=== PATIENT | female | born 1945 | race Caucasian/White ===

== ENCOUNTER 2017-01-07 17:15 | Observation (INO) | payer MEDICARE, BC ==
[2017-01-07] MEDS ORDERED: Nitroglycerin 0.4 MG Tab.SL SL ONE (17:31)
[2017-01-07] MEDS ORDERED: Nitroglycerin 0.4 MG Tab.SL ONE (17:37)
[2017-01-07] MEDS ORDERED: Sodium Chloride 0.9% 5 ML Syringe FLUSH PRN (17:47)
[2017-01-07] MEDS ORDERED: Ondansetron 4 MG/2 ML SDV IVPUSH ONE (18:00)
[2017-01-07] MEDS ORDERED: Ondansetron 4 MG/2 ML SDV ONE (18:05)
[2017-01-07 18:11] LABS: CHLORIDE,CL 101 mmol/L (98-115); SODIUM,NA 140 mmol/L (136-145)
--- NOTE | 2017-01-07 18:22 | EDM.PDOC ---
Addendum entered and electronically signed by Mj Mccullough PA 01/07/17 18:42 : ER H&P CAN BE USED ADMISSION H&P Original Note: ED HISTORY OF PRESENT ILLNESS - General Chief Complaint: Chest Pain Stated Complaint: CHEST PAIN Time Seen by Provider: 01/07/17 17:50 Source of Information: Reports: Patient History Limitations: Reports: No limitations - History of Present Illness INITIAL COMMENTS - FREE TEXT/NARRATIVE: PT STATES AT 1615 TODAY WHILE SHE WAS GARDENING, SHE DEVELOPED A SHARP PAIN IN LEFT CHEST, NAUSEA, AND RADIATION TO RIGHT JAW. PAIN THEN CHANGED TO PRESSURE AND SHE TOOK 2 BABY ASPIRIN AND LAID ON COUCH. PAIN PERSISTED SO SHE CAME TO ER DRIVEN BY . DENIES TRAUMA, SOB, FEVER, URI, ABD PAIN, LEG SWELLING, OR H/ O SIMILAR SYMPTOMS IN PAST Symptom Onset Date: 01/07/17 Symptom Onset Time: 16:15 Timing/Duration: Reports: Hour(s): Severity: mild Location, General: Reports: chest Quality: Reports: Pressure, Sharp Improves with: Reports: Medication, Other (RESOLVED AFTER NITRO) Worsens with: Reports: None Context, General: Reports: Activity Associated Symptoms (General): Reports: nausea/vomiting - Related Data Allergies/ADRs: Allergies Allergy/AdvReac Type Severity Reaction Status Date / Time Tetanus Vaccines and Toxoid Allergy Anaphylactic Verified 01/07/17 17:44 [Tetanus Vaccines & Toxoid] Shock Home Meds: Home Meds metFORMIN [Glucophage XR] 1,000 mg PO BID 01/16/14 [History] Gabapentin [Gabapentin] 900 mg PO TID 01/30/16 [History] SitaGLIPtin [Januvia] 100 mg PO BEDTIME 04/26/16 [History] atorvaSTATin [Lipitor] 10 mg PO BEDTIME 01/07/17 [History] oxyCODONE HCl/Acetaminophen [oxyCODONE-Acetaminophen 5-325] 1 - 2 tab PO Q6H PRN 01/07/17 [History] Past Medical History - Past Health History Medical/Surgical History: Denies Medical/Surgical History Cardiovascular History: Reports: Hypertension Endocrine/Metabolic History: Reports: Diabetes, type II - Past Surgical History Female Surgical History: Reports: Hysterectomy Social & Family History - Tobacco Use Smoking Status *Q: Current Every Day Smoker Years of Tobacco use: 55 Packs/Tins Daily: 1 Used Tobacco, but Quit: No Second Hand Smoke Exposure: Yes - Alcohol Use Days Per Week of Alcohol Use: 0 - Recreational Drug Use Recreational Drug Use: No Drug Use in Last 12 Months: Yes Recreational Drug Type: Reports: Marijuana/Hashish - Living Situation & Occupation Living situation: Reports: ED ROS GENERAL - Review of Systems Review Of Systems: ROS reveals no pertinent complaints other than HPI. Constitutional: Reports: no symptoms HEENT: Reports: No symptoms Respiratory: Reports: No Symptoms Cardiovascular: Reports: Chest pain Endocrine: Reports: no symptoms GI/Abdominal: Reports: No symptoms : Reports: no symptoms Musculoskeletal: Reports: no symptoms Skin: Reports: no symptoms Neurological: Reports: No Symptoms Psychiatric: Reports: No symptoms Hematologic/Lymphatic: Reports: no symptoms Immunologic: Reports: no symptoms ED EXAM, GENERAL - Physical Exam Exam: See Below Exam Limited By: No limitations General Appearance: alert, WD/WN, no apparent distress Eye Exam: bilateral eye: normal inspection Nose: normal inspection, normal mucosa, no blood Throat/Mouth: Normal inspection, Normal oropharynx, No airway compromise Head: atraumatic, normocephalic Neck: normal inspection, supple, non-tender, full range of motion Respiratory/Chest: no respiratory distress, lungs clear, normal breath sounds, no accessory muscle use Cardiovascular: regular rate, rhythm, no murmur, no rub GI/Abdominal: normal bowel sounds, soft, non tender, no organomegaly, no distention, no abnormal bruit, no mass Back Exam: normal inspection Extremities: normal inspection, non-tender, no pedal edema Neurological: alert, oriented, normal cognition Psychiatric: normal affect, normal mood Skin Exam: Warm, Dry, Intact, Normal color, No rash Lymphatic: no adenopathy EKG INTERPRETATION EKG Date: 01/07/17 Time: 17:30 Rhythm: NSR Rate (beats/min): 89 [place]: normal P-wave: present QRS: normal ST-T: normal QT: normal Comparison: NA - no prior EKG Course - Vital Signs Last Recorded V/S: Last Vital Signs Temp 97.6 F 01/07/17 17:58 Pulse 93 01/07/17 17:58 Resp 20 01/07/17 17:58 BP 124/51 L 01/07/17 17:58 Pulse Ox 95 01/07/17 17:58 - Orders/Labs/Meds Orders: Active Orders 24 hr Category Date Time Status EKG Documentation Completion [RC] ASDIRECTED Care 01/07/17 17:47 Active Peripheral IV Care [RC] . DIRECTED Care 01/07/17 17:47 Active Chest 1V Frontal [CR] Stat Exams 01/07/17 17:46 Taken Sodium Chloride 0.9% [Syrex Flush] Med 01/07/17 17:47 Active 5 ml FLUSH Q8HR PRN Peripheral IV Insertion Adult [OM.PC] Routine Oth 01/07/17 17:47 Ordered EKG 12 Lead [EK] Routine Ther 01/07/17 17:47 Ordered Medication Orders Sodium Chloride (Syrex Flush) 5 ml FLUSH Q8HR PRN PRN Reason: Keep Vein Open Labs: Laboratory Tests 01/07/17 01/07/17 Range/Units 17:30 17:30 WBC 12.8 H (5.0-10.0) 10^3/uL RBC 4.95 (3.80-5.50) 10^6/uL Hgb 15.9 (12.0-16.0) g/dL Hct 46.5 (37.0-47.0) % MCV 94.0 H (82.0-92.0) fL MCH 32.1 H (27.0-31.0) pg MCHC 34.1 (32.0-36.0) g/dL RDW 12.6 (11.5-14.5) % Plt Count 299 (150-300) 10^3/uL MPV 7.6 (7.4-10.4) fL Neut % (Auto) 62.9 (50.0-70.0) % Lymph % (Auto) 29.6 (20.0-40.0) % [place] % (Auto) 4.2 (2.0-8.0) % Eos % (Auto) 2.9 (1.0-3.0) % Baso % (Auto) 0.4 (0.0-1.0) % Neut # (Auto) 8.0 H (2.5-7.0) 10^3/uL Lymph # (Auto) 3.8 (1.0-4.0) 10^3/uL [place] # (Auto) 0.5 (0.1-0.8) 10^3/uL Eos # (Auto) 0.4 H (0.1-0.3) 10^3/uL Baso # (Auto) 0.1 (0.0-0.1) 10^3/uL Sodium 140 (136-145) mmol/L Potassium 3.7 (3.3-5.3) mmol/L Chloride 101 (98-115) mmol/L Carbon Dioxide 27.6 (21.0-32.0) mmol/L BUN 19 (6-25) mg/dL Creatinine 0.80 (0.51-1.17) mg/dL Est Cr Clr Drug Dosing TNP Estimated GFR (MDRD) > 60 mL/min Glucose 160 H (70-110) mg/dL Calcium 9.1 (8.7-10.3) mg/dL Total Bilirubin 0.6 (0.2-1.0) mg/dL AST 61 H (15-37) U/L ALT 41 (12-78) U/L Alkaline Phosphatase 119 H (46-116) IU/L CK-MB (CK-2) 0.90 (0.00-4.30) ng/mL Troponin I < 0.04 (0.00-0.070) ng/mL Total Protein 7.4 (6.4-8.2) g/dL Albumin 3.74 (3.00-4.80) g/dL Lipase 99 (73-393) U/L Meds: Medications Generic Name Dose Route Start Last Admin Trade Name Freq PRN Reason Stop Dose Admin Sodium Chloride 5 ml 01/07/17 17:47 Syrex Flush FLUSH Q8HR PRN Keep Vein Open Discontinued Medications Generic Name Dose Route Start Last Admin Trade Name Freq PRN Reason Stop Dose Admin Nitroglycerin Confirm 01/07/17 17:37 Nitrostat Administered 01/07/17 17:38 Dose 0.4 mg .ROUTE .STK-MED ONE Nitroglycerin 0.4 mg 01/07/17 17:31 Nitrostat SL 01/07/17 17:32 ONETIME ONE Ondansetron HCl Confirm 01/07/17 18:05 Zofran Administered 01/07/17 18:06 Dose 4 mg .ROUTE .STK-MED ONE Ondansetron HCl 4 mg 01/07/17 18:00 Zofran IVPUSH 01/07/17 18:01 ONETIME ONE - Re-Assessments/Exams Free Text/Narrative Re-Assessment/Exam: 01/07/17 18:32 PT AFEBRILE, VSS, NONTOXIC APPEARING, DENIES ANY CP, NAUSEA RESOLVED. DISCUSSED CASE WITH DR RICARDO. WILL ADMIT TO OBS AND FOLLOW. Departure - Departure Time of Disposition: 18:34 Disposition: Refer to Observation Condition: fair Clinical Impression: Atypical chest pain Forms: ED Department Discharge - My Orders Last 24 Hours: My Active Orders 01/07/17 17:46 Chest 1V Frontal [CR] Stat 01/07/17 17:47 EKG Documentation Completion [RC] ASDIRECTED Peripheral IV Care [RC] . DIRECTED Sodium Chloride 0.9% [Syrex Flush] 5 ml FLUSH Q8HR PRN Peripheral IV Insertion Adult [OM.PC] Routine EKG 12 Lead [EK] Routine - Assessment/Plan Last 24 Hours: My Active Orders 01/07/17 17:46 Chest 1V Frontal [CR] Stat 01/07/17 17:47 EKG Documentation Completion [RC] ASDIRECTED Peripheral IV Care [RC] . DIRECTED Sodium Chloride 0.9% [Syrex Flush] 5 ml FLUSH Q8HR PRN Peripheral IV Insertion Adult [OM.PC] Routine EKG 12 Lead [EK] Routine Assessment:: CHEST PAIN Plan: ADMIT TO OBS FOR DR RICARDO
[2017-01-07] MEDS ORDERED: Ondansetron 4 MG Tab.DIS PO PRN (18:35)
[2017-01-07] MEDS ORDERED: Acetaminophen/oxyCODONE 325-5 MG Tab PO PRN (18:35)
[2017-01-07] MEDS ORDERED: Lidocaine 2% 100 MG/5 ML Syringe IVPUSH PRN (19:04)
[2017-01-07] MEDS ORDERED: Atropine 0.1 MG/ML 10 ML Syringe IVPUSH PRN (19:04)
[2017-01-07] MEDS ORDERED: Nitroglycerin 0.4 MG Tab.SL SL PRN (19:04)
[2017-01-07] MEDS ORDERED: EPINEPHrine 1:10,000 1 MG/10 ML Syringe IVPUSH PRN (19:04)
[2017-01-07] MEDS: metFORMIN 500 MG Tab.ER PO SCH (20:10)
[2017-01-07] MEDS: Gabapentin 300 MG Cap PO SCH (20:10)
[2017-01-07] MEDS ORDERED: atorvaSTATin 10 MG Tab PO SCH (21:00)
[2017-01-08 06:43] VITALS: BP 119/57
[2017-01-08] MEDS: metFORMIN 500 MG Tab.ER PO SCH (08:39)
[2017-01-08] MEDS: Gabapentin 300 MG Cap PO SCH (08:39)
--- NOTE | 2017-01-08 08:45 | PCM.DCSUM1 ---
Discharge Summary - Hospital Course Free Text/Narrative:: Karoline was admitted to observation yesterday to rule out cardiac etiology. She was working in her garden and developed left sided chest pain that turned to pressure and was not going away. It radiated into her left arm and right jaw. EKG, CXR and labs were WNL in the ER but she is a smoker with diabetes, risk factors for CV disease. She was admitted to rule out GA. She had serial troponins drawn q 4 hours x 4 and they were all negative. She has no chest pain this AM but states "I just don't feel quite right but can't put my finger on what it is". She is ready to go home. Smoking cessation offered but patient declined. She is eating and drinking well. Recommend ASA 81 mg PO daily at discharge. - Discharge Data Discharge Date: 01/08/17 Discharge Disposition: Home, Self-Care 01 Condition: Good - Patient Summary/Data Recommended Follow-up Testing/Procedures: Will get outpatient cardiac stress test. Will do Lexiscan. - Patient Instructions Diet: Heart Healthy Diet, Diabetic Diet Activity: As Tolerated - Discharge Plan Prescriptions/Med Rec: Nitroglycerin [IJP: Nitroglycerin] 0.4 mg SL ASDIRECTED PRN #30 tablet, sublingual PRN Reason: Chest Pain Home Medications: Home Meds metFORMIN [Glucophage XR] 1,000 mg PO BID 01/16/14 [History] Gabapentin 900 mg PO TID 01/30/16 [History] SitaGLIPtin [Januvia] 100 mg PO BEDTIME 04/26/16 [History] atorvaSTATin [Lipitor] 10 mg PO BEDTIME 01/07/17 [History] oxyCODONE HCl/Acetaminophen [oxyCODONE-Acetaminophen 5-325] 1 - 2 tab PO Q6H PRN 01/07/17 [History] Nitroglycerin [IJP: Nitroglycerin] 0.4 mg SL ASDIRECTED PRN #30 tablet, sublingual 01/08/17 [Rx] Forms: ED Department Discharge Referrals: Jacinda Rossi MD [Primary Care Provider] - - General Info Date of Service: 01/08/17 - Review of Systems Systems Review Comment: 10 point ROS obtained, all pertinent positives in HPI, all other systems negative. - Patient Data Vitals - Most Recent: Last Vital Signs Temp 97.8 F 05/03/17 06:42 Pulse 86 01/08/17 06:42 Resp 16 01/08/17 06:42 BP 119/57 L 01/08/17 06:42 Pulse Ox 98 01/08/17 07:47 Weight - Most Recent: 235 lb 14.4 oz I&O - Last 24 hours: Intake & Output 01/07/17 01/08/17 01/08/17 22:59 06:59 14:59 Intake Total 100 Balance 100 Lab Results - Last 24 hrs: Laboratory Results - last 24 hr 01/07/17 01/08/17 01/08/17 Range/Units 21:30 01:25 06:38 POC Glucose 147 H (74-106) mg/dl Troponin I 0.04 < 0.04 (0.00-0.070) ng/mL Med Orders - Current: Current Medications Atorvastatin Calcium (Lipitor) 10 mg PO BEDTIME [facility] Last Admin: 01/07/17 20:10 Dose: 10 mg Atropine Sulfate (Atropine 0.1 Mg/Ml) 0 mg IVPUSH ASDIRECTED PRN PRN Reason: Heart Epinephrine HCl (Epinephrine 1:10,000) 1 mg IVPUSH ASDIRECTED PRN PRN Reason: Heart Gabapentin (Neurontin) 900 mg PO TID [facility] Last Admin: 01/07/17 20:10 Dose: 900 mg Lidocaine HCl (Xylocaine 2%) 0 mg IVPUSH ASDIRECTED PRN PRN Reason: Heart Metformin HCl (Glucophage Xr) 1,000 mg PO BID [facility] Last Admin: 01/07/17 20:10 Dose: 1,000 mg Nitroglycerin (Nitrostat) 0.4 mg SL ASDIRECTED PRN PRN Reason: Heart Ondansetron HCl (Zofran Odt) 4 mg PO Q6H PRN PRN Reason: nausea, able to take PO Oxycodone/Acetaminophen (Percocet 325-5 Mg) 2 tab PO Q4H PRN PRN Reason: Pain (moderate 4-6) Last Admin: 01/08/17 05:50 Dose: 2 tab Sitagliptin Phosphate (Januvia) 100 mg PO BEDTIME [facility] Last Admin: 01/07/17 20:10 Dose: Not Given Sodium Chloride (Syrex Flush) 5 ml FLUSH Q8HR PRN PRN Reason: Keep Vein Open Last Admin: 01/07/17 18:26 Dose: 5 ml Discontinued Medications Nitroglycerin (Nitrostat) Confirm Administered Dose 0.4 mg .ROUTE .STK-MED ONE Stop: 01/07/17 17:38 Last Admin: 01/07/17 18:26 Dose: Not Given Nitroglycerin (Nitrostat) 0.4 mg SL ONETIME ONE Stop: 01/07/17 17:32 Last Admin: 01/07/17 17:40 Dose: 0.4 mg Ondansetron HCl (Zofran) Confirm Administered Dose 4 mg .ROUTE .STK-MED ONE Stop: 01/07/17 18:06 Last Admin: 01/07/17 18:25 Dose: Not Given Ondansetron HCl (Zofran) 4 mg IVPUSH ONETIME ONE Stop: 01/07/17 18:01 Last Admin: 01/07/17 18:00 Dose: 4 mg - Exam General: Reports: alert, oriented, cooperative, no acute distress Lungs: Reports: Clear to auscultation, Normal respiratory effort Cardiovascular: Reports: Regular Rate, Regular Rhythm, No Murmurs *Q Meaningful Use (DIS) - VTE *Q VTE Criteria *Q: - Stroke *Q Stroke Criteria *Q: - AMI *Q AMI Criteria *Q:
== END 2017-01-08 09:45 | disposition home or self-care (01) ==
LOC: KA.ED 17:15 → KA.MS 18:35
PROVIDERS: ADMIT Physician Assistant Surgical; ATTEND Internal Medicine
DX: R07.89 Other chest pain (principal); I10 Essential (primary) hypertension; E11.9 Type 2 diabetes mellitus without complications; Z79.84 Long term (current) use of oral hypoglycemic drugs; Z79.899 Other long term (current) drug therapy; Z88.8 Allergy status to other drugs, medicaments and biological substances; Z90.710 Acquired absence of both cervix and uterus; F17.210 Nicotine dependence, cigarettes, uncomplicated
CPT/HCPCS: 36415; 71010; 80053; 82553; 82962; 83690; 83880; 84484; 85025; 93005; 96374; 99218; 99285; A9270; G0378; J2405

== ENCOUNTER 2017-01-18 20:57 | Emergency (ER) | payer MEDICARE, BC ==
[2017-01-18] MEDS ORDERED: Nitroglycerin 0.4 MG Tab.SL ONE (21:04)
[2017-01-18] MEDS ORDERED: Aspirin 81 MG Tab.Chew ONE (21:11)
[2017-01-18] MEDS ORDERED: Aspirin 81 MG Tab.Chew PO ONE (21:12)
--- NOTE | 2017-01-18 21:32 | EDM.PDOC ---
ED HPI GENERAL MEDICAL PROBLEM - General Chief Complaint: Chest Pain Stated Complaint: CHEST PAIN Time Seen by Provider: 01/18/17 21:15 Source of Information: Reports: Patient History Limitations: Reports: No Limitations - History of Present Illness INITIAL COMMENTS - FREE TEXT/NARRATIVE: 71 YO WF presents to ER with left sided chest pain with radiation to left arm and jaw which began today after exertion (gardening). Pt reports associated dizziness and diaphoresis as well as nausea/indigestion. Pt took 2 SL nitro with relief. Pt had similar episodes and was admitted 01/07/2017 to the hospital for observation. Pt is scheduled for a nuclear stress test 01/27/2017. 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: Reports: Nitroglycerin Left Chest Pain Score (Numeric/FACES): 5 - Related Data Allergies Allergy/AdvReac Type Severity Reaction Status Date / Time Tetanus Vaccines and Toxoid Allergy Anaphylactic Verified 01/07/17 17:44 [Tetanus Vaccines & Toxoid] Shock Home Meds: Home Meds metFORMIN [Glucophage XR] 1,000 mg PO BID 01/16/14 [History] Gabapentin 900 mg PO TID 01/30/16 [History] SitaGLIPtin [Januvia] 100 mg PO BEDTIME 04/26/16 [History] atorvaSTATin [Lipitor] 10 mg PO BEDTIME 01/07/17 [History] oxyCODONE HCl/Acetaminophen [oxyCODONE-Acetaminophen 5-325] 1 - 2 tab PO Q6H PRN 01/07/17 [History] Nitroglycerin [IJP: Nitroglycerin] 0.4 mg SL ASDIRECTED PRN #30 tablet, sublingual 01/08/17 [Rx] Past Medical History - Past Health History Medical/Surgical History: Denies Medical/Surgical History Cardiovascular History: Reports: High Cholesterol, Hypertension Respiratory History: Reports: Sleep Apnea, Other (See Below) Other Respiratory History: uses bipap at night Genitourinary History: Reports: None Musculoskeletal History: Reports: Back Pain, Chronic, Osteoarthritis, Osteoporosis, Other (See Below) Other Musculoskeletal History: Degenetive joint disease Endocrine/Metabolic History: Reports: Diabetes, Type II - Infectious Disease History Infectious Disease History: Reports: Chicken Pox, Measles, Mumps - Past Surgical History Musculoskeletal Surgical History: Reports: Other (See Below) Social & Family History - Family History Family Medical History: Noncontributory - Tobacco Use Smoking Status *Q: Current Every Day Smoker Years of Tobacco use: 60 Packs/Tins Daily: 1 Used Tobacco, but Quit: No Second Hand Smoke Exposure: No - Caffeine Use Caffeine Use: Reports: Coffee, Soda - Alcohol Use Days Per Week of Alcohol Use: 0 - Recreational Drug Use Recreational Drug Use: Yes Drug Use in Last 12 Months: Yes Recreational Drug Type: Reports: Marijuana/Hashish Recreational Drug Use Frequency: Monthly - Living Situation & Occupation Living situation: Reports: ED ROS GENERAL - Review of Systems Review Of Systems: See Below Constitutional: Reports: No Symptoms HEENT: Reports: No Symptoms Respiratory: Reports: No Symptoms Cardiovascular: Reports: Chest Pain, Lightheadedness Endocrine: Reports: No Symptoms GI/Abdominal: Reports: No Symptoms : Reports: No Symptoms Musculoskeletal: Reports: No Symptoms Skin: Reports: No Symptoms Neurological: Reports: No Symptoms Psychiatric: Reports: No Symptoms Hematologic/Lymphatic: Reports: No Symptoms Immunologic: Reports: No Symptoms ED EXAM, GENERAL - Physical Exam Exam: See Below Exam Limited By: No Limitations General Appearance: Alert, WD/WN, No Apparent Distress Nose: Normal Inspection, Normal Mucosa, No Blood Throat/Mouth: Normal Inspection, Normal Lips, Normal Teeth, Normal Gums, Normal Oropharynx, Normal Voice, No Airway Compromise Head: Atraumatic, Normocephalic Neck: Normal Inspection, Supple, Non-Tender, Full Range of Motion Respiratory/Chest: No Respiratory Distress, Lungs Clear, Normal Breath Sounds, No Accessory Muscle Use, Chest Non-Tender Cardiovascular: Normal Peripheral Pulses, Regular Rate, Rhythm, No Edema, No Gallop, No JVD, No Murmur, No Rub GI/Abdominal: Normal Bowel Sounds, Soft, Non-Tender, No Organomegaly, No Distention, No Abnormal Bruit, No Mass Back Exam: Normal Inspection, Full Range of Motion, NT Extremities: Normal Inspection, Normal Range of Motion, Non-Tender, Normal Capillary Refill, No Pedal Edema Neurological: Alert, Oriented, CN II-XII Intact, Normal Cognition, Normal Gait, Normal Reflexes, No Motor/Sensory Deficits Psychiatric: Normal Affect, Normal Mood Skin Exam: Warm, Dry, Intact, Normal Color, No Rash Lymphatic: No Adenopathy EKG INTERPRETATION EKG Date: 01/18/17 Time: 21:06 Rhythm: NSR Rate (beats/min): 79 [place]: normal P-wave: present QRS: normal ST-T: normal QT: normal Comparison: no change Course - Vital Signs Last Recorded V/S: Last Vital Signs Temp 36.9 C 01/18/17 21:15 Pulse 87 01/18/17 22:00 Resp 22 H 01/18/17 21:15 BP 135/47 L 01/18/17 22:00 Pulse Ox 96 01/18/17 21:15 - Orders/Labs/Meds Orders: Active Orders 24 hr Category Date Time Status EKG Documentation Completion [RC] ASDIRECTED Care 01/18/17 21:12 Active CXR [Chest 2V] [CR] Stat Exams 01/18/17 21:11 Ordered Labs: Laboratory Tests 01/18/17 01/18/17 01/18/17 Range/Units 21:05 21:05 21:05 WBC 10.1 H (5.0-10.0) 10^3/uL RBC 4.66 (3.80-5.50) 10^6/uL Hgb 15.0 (12.0-16.0) g/dL Hct 43.8 (37.0-47.0) % MCV 94.0 H (82.0-92.0) fL MCH 32.2 H (27.0-31.0) pg MCHC 34.3 (32.0-36.0) g/dL RDW 12.8 (11.5-14.5) % Plt Count 211 (150-300) 10^3/uL MPV 8.0 (7.4-10.4) fL Neut % (Auto) 64.0 (50.0-70.0) % Lymph % (Auto) 29.1 (20.0-40.0) % [place] % (Auto) 3.9 (2.0-8.0) % Eos % (Auto) 2.9 (1.0-3.0) % Baso % (Auto) 0.1 (0.0-1.0) % Neut # (Auto) 6.5 (2.5-7.0) 10^3/uL Lymph # (Auto) 2.9 (1.0-4.0) 10^3/uL [place] # (Auto) 0.4 (0.1-0.8) 10^3/uL Eos # (Auto) 0.3 (0.1-0.3) 10^3/uL Baso # (Auto) 0.0 (0.0-0.1) 10^3/uL PT (8.9-11.4) SEC INR (0.9-1.1) APTT (20.8-31.2) SEC Sodium 141 (136-145) mmol/L Potassium 4.0 (3.3-5.3) mmol/L Chloride 103 (98-115) mmol/L Carbon Dioxide 31.3 (21.0-32.0) mmol/L BUN 14 (6-25) mg/dL Creatinine 0.62 (0.51-1.17) mg/dL Est Cr Clr Drug Dosing 82.10 mL/min Estimated GFR (MDRD) > 60 mL/min Glucose 172 H (70-110) mg/dL Calcium 8.9 (8.7-10.3) mg/dL Total Bilirubin 0.4 (0.2-1.0) mg/dL AST 26 (15-37) U/L ALT 34 (12-78) U/L Alkaline Phosphatase 123 H (46-116) IU/L Creatine Kinase 31 (26-276) U/L CK-MB (CK-2) < 0.50 (0.00-4.30) ng/mL Troponin I 0.02 (0.00-0.070) ng/mL Total Protein 7.1 (6.4-8.2) g/dL Albumin 3.52 (3.00-4.80) g/dL 01/18/17 Range/Units 21:35 WBC (5.0-10.0) 10^3/uL RBC (3.80-5.50) 10^6/uL Hgb (12.0-16.0) g/dL Hct (37.0-47.0) % MCV (82.0-92.0) fL MCH (27.0-31.0) pg MCHC (32.0-36.0) g/dL RDW (11.5-14.5) % Plt Count (150-300) 10^3/uL MPV (7.4-10.4) fL Neut % (Auto) (50.0-70.0) % Lymph % (Auto) (20.0-40.0) % [place] % (Auto) (2.0-8.0) % Eos % (Auto) (1.0-3.0) % Baso % (Auto) (0.0-1.0) % Neut # (Auto) (2.5-7.0) 10^3/uL Lymph # (Auto) (1.0-4.0) 10^3/uL [place] # (Auto) (0.1-0.8) 10^3/uL Eos # (Auto) (0.1-0.3) 10^3/uL Baso # (Auto) (0.0-0.1) 10^3/uL PT 10.8 (8.9-11.4) SEC INR 1.1 (0.9-1.1) APTT 32.5 H (20.8-31.2) SEC Sodium (136-145) mmol/L Potassium (3.3-5.3) mmol/L Chloride (98-115) mmol/L Carbon Dioxide (21.0-32.0) mmol/L BUN (6-25) mg/dL Creatinine (0.51-1.17) mg/dL Est Cr Clr Drug Dosing mL/min Estimated GFR (MDRD) mL/min Glucose (70-110) mg/dL Calcium (8.7-10.3) mg/dL Total Bilirubin (0.2-1.0) mg/dL AST (15-37) U/L ALT (12-78) U/L Alkaline Phosphatase (46-116) IU/L Creatine Kinase (26-276) U/L CK-MB (CK-2) (0.00-4.30) ng/mL Troponin I (0.00-0.070) ng/mL Total Protein (6.4-8.2) g/dL Albumin (3.00-4.80) g/dL Meds: Medications Discontinued Medications Generic Name Dose Route Start Last Admin Trade Name Freq PRN Reason Stop Dose Admin Aspirin 324 mg 01/18/17 21:12 01/18/17 21:10 Aspirin PO 01/18/17 21:13 324 mg ONETIME ONE Administration Aspirin Confirm 05/13/17 21:11 01/18/17 21:44 Aspirin Administered 01/18/17 21:12 Not Given Dose 324 mg .ROUTE .STK-MED ONE Nitroglycerin Confirm 01/18/17 21:04 Nitrostat Administered 01/18/17 21:05 Dose 0.4 mg .ROUTE .STK-MED ONE Nitroglycerin 1 gm 01/18/17 21:36 01/18/17 21:43 Nitro-Bid 2% TOP 01/18/17 21:37 1 gm ONETIME ONE Administration Nitroglycerin Confirm 01/18/17 21:38 01/18/17 21:44 Nitro-Bid 2% Administered 01/18/17 21:39 Not Given Dose 1 gm .ROUTE .STK-MED ONE - Radiology Interpretation Free Text/Narrative:: Cxr- NAD Departure - Departure Time of Disposition: 22:35 Disposition: DC/Tfer to [facility] 02 Reason for Transfer *Q: Other Condition: serious Clinical Impression: Unstable angina Forms: ED Department Discharge, Interfacility Transfer EMTALA - My Orders Last 24 Hours: My Active Orders 01/18/17 21:11 CXR [Chest 2V] [CR] Stat 01/18/17 21:12 EKG Documentation Completion [RC] ASDIRECTED - Assessment/Plan Last 24 Hours: My Active Orders 01/18/17 21:11 CXR [Chest 2V] [CR] Stat 01/18/17 21:12 EKG Documentation Completion [RC] ASDIRECTED Assessment:: 1. unstable angina 2. chest pain Plan: 1. transfer to [facility] for further management of unstable angina- Dr Zhou accepting 2. supportive care
[2017-01-18] MEDS ORDERED: Nitroglycerin 2% Oint 1 GM UD Packet TOP ONE (21:36)
[2017-01-18] MEDS ORDERED: Nitroglycerin 2% Oint 1 GM UD Packet ONE (21:38)
[2017-01-18 22:00] VITALS: BP 135/47
[2017-01-18 22:15] LABS: CHLORIDE,CL 103 mmol/L (98-115); SODIUM,NA 141 mmol/L (136-145)
[2017-01-22] MEDS ORDERED: Nitroglycerin 0.4 MG Tab.SL SL ONE (16:20)
== END 2017-01-18 23:00 ==
LOC: KA.ED 20:57
DX: I20.0 Unstable angina (principal); E78.00 Pure hypercholesterolemia, unspecified; I10 Essential (primary) hypertension; E11.9 Type 2 diabetes mellitus without complications; F17.210 Nicotine dependence, cigarettes, uncomplicated; Z79.899 Other long term (current) drug therapy; Z79.84 Long term (current) use of oral hypoglycemic drugs
CPT/HCPCS: 36415; 71020; 80053; 82550; 82553; 84484; 85025; 85610; 85730; 93005; 99285; A9270

== ENCOUNTER 2017-05-13 06:12 | Day surgery (SDC) | payer MEDICARE, BC ==
[2017-05-13] MEDS ORDERED: Cyclopentolate 1% Opth Soln 2 ML Bottle EYERT SCH (06:15)
[2017-05-13] MEDS ORDERED: Gatifloxacin 0.5% Ophth Soln 2.5 ML Bot EYERT SCH ×2 (06:15)
[2017-05-13] MEDS ORDERED: Phenylephrine 10% Ophth Soln 5 ML Bot EYERT SCH (06:15)
[2017-05-13] MEDS ORDERED: Sodium Chloride 0.9% 5 ML Syringe FLUSH PRN (06:15)
[2017-05-13] MEDS ORDERED: Sodium Chloride 0.9% 1,000 ML IV SCH (06:15)
[2017-05-13] MEDS: Cyclopentolate 1% Opth Soln 2 ML Bottle EYERT SCH ×3 (06:46→07:24)
[2017-05-13] MEDS: Phenylephrine 10% Ophth Soln 5 ML Bot EYERT SCH ×3 (06:57→07:35)
[2017-05-13] MEDS ORDERED: Balanced Salt Solution Ophth Irrig 15 ML Bottle EYERT ONE (08:39)
[2017-05-13] MEDS ORDERED: Water For Irrigation,Sterile 1,500 ML Container IRR ONE (08:39)
[2017-05-13] MEDS ORDERED: Tetracaine 0.5% 2 ML Bottle EYEBOTH ONE (08:40)
[2017-05-13] MEDS ORDERED: Balanced Salt Solution Plus Ophth Irrig 500 ML Bottle IOCULAR ONE (08:40)
[2017-05-13] MEDS ORDERED: EPINEPHrine 1 MG/ML SDV ONE (08:41)
[2017-05-13] MEDS ORDERED: Carbachol 0.01% Intraocular 1.5 ML Vial EYERT ONE (08:41)
[2017-05-13] MEDS ORDERED: Dexamethasone/Neomycin/Polymyxin B Ophth Oint 3.5 GM Tube EYERT ONE (08:41)
[2017-05-13] MEDS ORDERED: Lidocaine 1% 10 ML MDV INJECT ONE (08:42)
[2017-05-13] MEDS ORDERED: Lidocaine 2% with EPINEPHrine 1:100,000 20 ML MDV INJECT ONE (08:42)
[2017-05-13] MEDS ORDERED: Hyaluronate Sodium 1% 0.85 ML Syringe IOCULAR ONE (08:43)
[2017-05-13 09:22] VITALS: BP 119/57
--- NOTE | 2017-05-14 08:13 | OR ---
DATE OF SURGERY: 05/13/2017 SURGEON: Matthew Mena MD PREOPERATIVE DIAGNOSIS: Cataract, right eye. POSTOPERATIVE DIAGNOSIS: Cataract, right eye. OPERATION PERFORMED: Phacoemulsification with posterior chamber lens insertion, right eye. FINDINGS: The patient was taken to the operating room where appropriate anesthesia, sedation and monitoring were provided. A retrobulbar block was given on the right side. The eye was massaged and was found to be appropriately soft. The eye and eyelids were then prepped and draped in the usual sterile manner. A lid speculum was placed. A micro sharp blade was used to enter the anterior chamber inside the limbus superior-temporally. Xylocaine was irrigated into the eye at this site. Healon was irrigated into the eye through this site. Then using a 2.85 mm corneal blade an entry was made into the anterior chamber just inside the limbus temporally. Healon was again irrigated into the eye. Then using a cystitome, the anterior capsulorrhexis was created. The lens nucleus was hydrodissected using a 27 gauge cannula and balanced salt solution. The phacoemulsification unit was introduced through the temporal site and the Deshaun spatula through the superior temporal site. In so doing, the lens nucleus was phacoemulsified. The cortical fragments of the lens were removed using the irrigation aspiration unit. The posterior capsule was polished. Healon was irrigated into the eye. The posterior chamber lens was inserted and rotated into position inside the capsular bag. The Healon was irrigated out of the eye. Miostat was irrigated into the eye and the pupil rounded nicely. A single interrupted 10-0 Nylon suture was placed through the temporal corneal incision site. Balanced salt solution was irrigated into the eye. The wound was tested and found to be tight. Maxitrol ointment was placed into the patient's right eye. The eyelids were closed and an eye patch and amador shield were placed. The patient left the operating room in good condition. /[id number]/MODL
== END 2017-05-13 09:27 | disposition home or self-care (01) ==
LOC: KA.SDS 06:12
PROVIDERS: ATTEND Ophthalmology
DX: E11.36 Type 2 diabetes mellitus with diabetic cataract (principal); E11.40 Type 2 diabetes mellitus with diabetic neuropathy, unspecified; F41.9 Anxiety disorder, unspecified; F32.9 Major depressive disorder, single episode, unspecified; G47.33 Obstructive sleep apnea (adult) (pediatric); G43.909 Migraine, unspecified, not intractable, without status migrainosus; M54.10 Radiculopathy, site unspecified; F17.210 Nicotine dependence, cigarettes, uncomplicated; Z85.828 Personal history of other malignant neoplasm of skin; Z99.89 Dependence on other enabling machines and devices; Z88.5 Allergy status to narcotic agent; Z88.7 Allergy status to serum and vaccine; Z79.84 Long term (current) use of oral hypoglycemic drugs; Z79.899 Other long term (current) drug therapy; Z90.710 Acquired absence of both cervix and uterus
CPT/HCPCS: 66984; 82962; A9270; J0171; J7030; 00142; V2632

== ENCOUNTER 2017-06-10 05:57 | Day surgery (SDC) | payer MEDICARE, BC ==
[2017-06-10] MEDS ORDERED: Gatifloxacin 0.5% Ophth Soln 2.5 ML Bot EYELF SCH (06:00)
[2017-06-10] MEDS ORDERED: Sodium Chloride 0.9% 1,000 ML IV SCH (06:00)
[2017-06-10] MEDS ORDERED: Sodium Chloride 0.9% 5 ML Syringe FLUSH PRN (06:00)
[2017-06-10] MEDS: Cyclopentolate 1% Opth Soln 2 ML Bottle EYELF SCH ×3 (06:16→06:49)
[2017-06-10] MEDS: Phenylephrine 10% Ophth Soln 5 ML Bot EYELF SCH ×3 (06:23→06:55)
[2017-06-10] MEDS ORDERED: Balanced Salt Solution Plus Ophth Irrig 500 ML Bottle IOCULAR ONE (07:33)
[2017-06-10] MEDS ORDERED: Balanced Salt Solution Ophth Irrig 15 ML Bottle EYELF ONE (07:33)
[2017-06-10] MEDS ORDERED: Water For Irrigation,Sterile 1,500 ML Container IRR ONE (07:33)
[2017-06-10] MEDS ORDERED: Tetracaine 0.5% 2 ML Bottle EYEBOTH ONE (07:34)
[2017-06-10] MEDS ORDERED: Carbachol 0.01% Intraocular 1.5 ML Vial EYELF ONE (07:34)
[2017-06-10] MEDS ORDERED: Tetracaine 0.5% 2 ML Bottle EYELF ONE (07:34)
[2017-06-10] MEDS ORDERED: EPINEPHrine 1 MG/ML SDV ONE (07:35)
[2017-06-10] MEDS ORDERED: Lidocaine 2% with EPINEPHrine 1:100,000 20 ML MDV INJECT ONE (07:35)
[2017-06-10] MEDS ORDERED: Dexamethasone/Neomycin/Polymyxin B Ophth Oint 3.5 GM Tube EYELF ONE (07:35)
[2017-06-10] MEDS ORDERED: Lidocaine 1% 10 ML MDV INJECT ONE (07:36)
[2017-06-10] MEDS ORDERED: Hyaluronate Sodium 1% 0.85 ML Syringe IOCULAR ONE (07:36)
[2017-06-10 08:26] VITALS: BP 111/35
--- NOTE | 2017-06-11 08:41 | OR ---
DATE OF SURGERY: 06/10/2017 SURGEON: Matthew Mena MD PREOPERATIVE DIAGNOSIS: Cataract, left eye. POSTOPERATIVE DIAGNOSIS: Cataract, left eye. OPERATION PERFORMED: Phacoemulsification with posterior chamber lens insertion, left eye. FINDINGS: The patient was taken to the operating room where appropriate anesthesia, sedation and monitoring were provided. A retrobulbar block was given on the left side. The eye was massaged and was found to be appropriately soft. The eye and eyelids were then prepped and draped in the usual sterile manner. A lid speculum was placed. A micro sharp blade was used to enter the anterior chamber inside the limbus inferior-temporally. Xylocaine was irrigated into the eye at this site. Healon was irrigated into the eye through this site. Then using a 2.85 mm corneal blade an entry was made into the anterior chamber just inside the limbus temporally. Healon was again irrigated into the eye. Then using a cystitome, the anterior capsulorrhexis was created. The lens nucleus was hydrodissected using a 27 gauge cannula and balanced salt solution. The phacoemulsification unit was introduced through the temporal site and the Deshaun spatula through the inferior temporal site. In so doing, the lens nucleus was phacoemulsified. The cortical fragments of the lens were removed using the irrigation aspiration unit. The posterior capsule was polished. Healon was irrigated into the eye. The posterior chamber lens was inserted and rotated into position inside the capsular bag. The Healon was irrigated out of the eye. Miostat was irrigated into the eye and the pupil rounded nicely. A single interrupted 10-0 Nylon suture was placed through the temporal corneal incision site. Balanced salt solution was irrigated into the eye. The wound was tested and found to be tight. Maxitrol ointment was placed into the patient's left eye. The eyelids were closed and an eye patch and amador shield were placed. The patient left the operating room in good condition. /[id number]/MODL
== END 2017-06-10 08:25 | disposition home or self-care (01) ==
LOC: KA.SDS 05:57
PROVIDERS: ATTEND Ophthalmology
DX: H26.9 Unspecified cataract (principal); F32.9 Major depressive disorder, single episode, unspecified; E11.40 Type 2 diabetes mellitus with diabetic neuropathy, unspecified; G47.33 Obstructive sleep apnea (adult) (pediatric); F10.10 Alcohol abuse, uncomplicated; Z79.84 Long term (current) use of oral hypoglycemic drugs; Z88.8 Allergy status to other drugs, medicaments and biological substances; Z79.899 Other long term (current) drug therapy; Z90.710 Acquired absence of both cervix and uterus
CPT/HCPCS: 66984; 82962; A9270; J0171; J7030; 00142; V2632

== ENCOUNTER 2018-06-04 11:37 | Emergency (ER) | payer MEDICARE, BC ==
[2018-06-04 12:26] LABS: ANION GAP 13.1 mmol/L (5-15); CHLORIDE,CL 105 mmol/L (98-115); SODIUM,NA 140 mmol/L (136-145)
[2018-06-04] MEDS ORDERED: Sodium Chloride 0.9% 1,000 ML IV ONE (12:33)
[2018-06-04] MEDS ORDERED: Ketorolac 30 MG/ML SDV IVPUSH ONE (12:39)
--- NOTE | 2018-06-04 12:49 | EDM.PDOC ---
ED HPI GENERAL MEDICAL PROBLEM - General Chief Complaint: Abdominal Pain Stated Complaint: abdominal pain Time Seen by Provider: 06/04/18 12:25 Source of Information: Reports: Patient History Limitations: Reports: No Limitations - History of Present Illness INITIAL COMMENTS - FREE TEXT/NARRATIVE: Patient presents with left sided abdominal pain that she says has been severe for the last ten days. A week ago she saw her PCP and was started on 7-day course of Cipro for suspected diverticulitis although CT that day didn't decidedly confirm it. Patient says pain is 8-10/10 and she has been taking her oxycodone every 4 hours around the clock. She used to take it just for chronic back pain and didn't have to take at night until the last week. The always has a daily, fairly soft bowel movement and did today. No vomiting, bloody stool, bloody urine, dysuria. She denies any history of kidney stones, kidney disease , lung disease, heart disease, Crohns, colitis, IBS. Left Abdomen Pain Score (Numeric/FACES): 10 - Related Data Allergies Allergy/AdvReac Type Severity Reaction Status Date / Time morphine Allergy Hyperactivi Verified 06/04/18 11:51 ty primidone Allergy Hallucinati Verified 06/04/18 13:02 ons Tetanus Vaccines and Toxoid Allergy Anaphylactic Verified 06/04/18 11:51 [Tetanus Vaccines & Toxoid] Shock Home Meds: Home Meds metFORMIN [Glucophage XR] 1,000 mg PO BIDMEALS 01/16/14 [History] Gabapentin 900 mg PO BID 01/30/16 [History] atorvaSTATin [Lipitor] 10 mg PO BEDTIME 01/07/17 [History] Rizatriptan Benzoate [Rizatriptan] 10 mg PO ASDIRECTED PRN 05/06/17 [History] oxyCODONE HCl/Acetaminophen [Endocet 10-325 mg Tablet] 1 each PO Q4HR PRN [History] glipiZIDE [Glucotrol XL] 5 mg PO BIDMEALS 06/09/17 [History] Furosemide [Lasix] 20 mg PO DAILY PRN 06/04/18 [History] Zonisamide 25 mg PO Q48H 06/04/18 [History] Zonisamide 50 mg PO Q48H 06/04/18 [History] Past Medical History - Past Health History Medical/Surgical History: Denies Medical/Surgical History HEENT History: Reports: Cataract, Impaired Vision, Sinusitis Cardiovascular History: Reports: Angina, High Cholesterol Other Cardiovascular History: chest pain 1 week ago with a stress test scheduled for january 27 Respiratory History: Reports: Sleep Apnea, Other (See Below) Other Respiratory History: uses bipap at night. Every day smoker x60 years. Gastrointestinal History: Reports: Other (See Below) Other Gastrointestinal History: recently diagnosed with diverticulitis on Genitourinary History: Reports: None GROUND LAYER History: Reports: Musculoskeletal History: Reports: Back Pain, Chronic, Osteoarthritis, Osteoporosis, Other (See Below) Other Musculoskeletal History: Degenetive joint disease Neurological History: Reports: Headaches, Chronic, Migraines, Neuropathy, Peripheral Endocrine/Metabolic History: Reports: Diabetes, Type II Oncologic (Cancer) History: Reports: Basal Cell Carcinoma - Infectious Disease History Infectious Disease History: Reports: Chicken Pox, Measles, Mumps - Past Surgical History Cardiovascular Surgical History: Reports: Other (See Below) Other Cardiovascular Surgeries/Procedures: angiogram Respiratory Surgical History: Reports: Lung Biopsies, Pneumonectomy, Other (See Below) Other Respiratory Surgeries/Procedures: Left lower lung - nonmalignant GI Surgical History: Reports: Colonoscopy Female Surgical History: Reports: Hysterectomy Neurological Surgical History: Reports: None Musculoskeletal Surgical History: Reports: Other (See Below) Other Musculoskeletal Surgeries/Procedures:: ganglion cyst removal. Dermatological Surgical History: Reports: Skin Biopsy Social & Family History - Family History Family Medical History: Noncontributory - Tobacco Use Smoking Status *Q: Current Every Day Smoker Years of Tobacco use: 55 Packs/Tins Daily: 0.2 - Caffeine Use Caffeine Use: Reports: Coffee, Soda - Recreational Drug Use Recreational Drug Use: No - Living Situation & Occupation Living situation: Reports: ED ROS GENERAL - Review of Systems Review Of Systems: See Below Constitutional: Denies: Fever, Chills, Malaise, Weakness, Diaphoresis HEENT: Denies: Ear Pain, Vision Change Respiratory: Denies: Shortness of Breath, Cough Cardiovascular: Denies: Chest Pain, Lightheadedness, Syncope GI/Abdominal: Reports: Abdominal Pain, Flatus (passing normal or a bit more). Denies: Black Stool, Bloody Stool, Constipation, Diarrhea, Decreased Appetite : Reports: Flank Pain (left). Denies: Discharge, Dysuria, Frequency, Hematuria Musculoskeletal: Reports: Back Pain (chronic). Denies: Neck Pain, Shoulder Pain , Arm Pain, Hand Pain Skin: Denies: Cyanosis, Jaundice, Mottled, Pallor, Diaphoresis Neurological: Denies: Confusion, Dizziness, Headache, Seizure, Syncope, Weakness Psychiatric: Reports: Anxiety. Denies: Agitation, Confusion Hematologic/Lymphatic: Denies: Anemia, Easy Bleeding ED EXAM, GI/ABD - Physical Exam Exam: See Below Exam Limited By: No Limitations General Appearance: Alert, WD/WN, No Apparent Distress Eyes: Bilateral: Normal Appearance, EOMI Ears: Normal External Exam, Hearing Grossly Normal Nose: Normal Inspection, No Blood Throat/Mouth: Normal Inspection, Normal Lips, Normal Voice, No Airway Compromise Head: Atraumatic, Normocephalic Neck: Normal Inspection, Non-Tender, Full Range of Motion Respiratory/Chest: No Respiratory Distress, Lungs Clear, Normal Breath Sounds, No Accessory Muscle Use Cardiovascular: Regular Rate, Rhythm, Systolic Murmur (early, mild) GI/Abdominal Exam: Soft, No Organomegaly, Tender (left lateral more toward upper and flank), Abnormal Bowel Sounds (decreased). No: Guarding, Rigid Back Exam: No: CVA Tenderness (L), CVA Tenderness (R) Extremities: Normal Inspection, Normal Range of Motion Neurological: Alert, Oriented, Normal Cognition, No Motor/Sensory Deficits Psychiatric: Normal Affect, Normal Mood Skin Exam: Warm, Dry, Intact, Normal Color, No Rash Course - Vital Signs Last Recorded V/S: Last Vital Signs Temp 97.4 F 06/04/18 11:46 Pulse 79 06/04/18 14:05 Resp 16 06/04/18 14:05 BP 123/44 L 06/04/18 14:19 Pulse Ox 96 06/04/18 14:05 - Orders/Labs/Meds Orders: Active Orders 24 hr Category Date Time Status Abdomen Pelvis w Cont [CT] Stat Exams 06/04/18 13:07 Taken Sodium Chloride 0.9% [Normal Saline] 50 ml Med 06/04/18 14:15 Active IV ASDIRECTED Medication Orders Sodium Chloride (Normal Saline) 50 mls @ 3 mls/sec IV ASDIRECTED NOEL Labs: Laboratory Tests 06/04/18 06/04/18 06/04/18 Range/Units 12:00 12:00 12:00 WBC 6.99 (5.00-10.00) 10^3/uL RBC 4.10 (3.80-5.50) 10^6/uL Hgb 13.5 (12.0-16.0) g/dL Hct 40.0 (37.0-47.0) % MCV 97.6 H (82.0-92.0) fL MCH 32.9 H (27.0-31.0) pg MCHC 33.8 (32.0-36.0) g/dL RDW 13.1 (11.5-14.5) % Plt Count 238 (150-400) 10^3/uL MPV 9.2 (7.4-10.4) fL Immature Gran % (Auto) 0.1 (0.0-5.0) % Neut % (Auto) 48.1 L (50.0-70.0) % Lymph % (Auto) 39.5 (20.0-40.0) % [place] % (Auto) 7.6 (2.0-8.0) % Eos % (Auto) 4.3 H (1.0-3.0) % Baso % (Auto) 0.4 (0.0-1.0) % Immature Gran # (Auto) 0.01 (0.00-0.50) 10^3/uL Neut # (Auto) 3.36 (2.50-7.00) 10^3/uL Lymph # (Auto) 2.76 (1.00-4.00) 10^3/uL [place] # (Auto) 0.53 (0.10-0.80) 10^3/uL Eos # (Auto) 0.30 (0.10-0.30) 10^3/uL Baso # (Auto) 0.03 (0.00-0.10) 10^3/uL Sodium 140 Cancelled (136-145) mmol/L Potassium 4.7 Cancelled (3.3-5.3) mmol/L Chloride 105 Cancelled (98-115) mmol/L Carbon Dioxide 26.6 Cancelled (21.0-32.0) mmol/L Anion Gap 13.1 Cancelled (5-15) mmol/L BUN 10 Cancelled (6-25) mg/dL Creatinine 0.68 Cancelled (0.51-1.17) mg/dL Est Cr Clr Drug Dosing 78.15 Cancelled mL/min Estimated GFR (MDRD) > 60 Cancelled mL/min Glucose 112 Cancelled mg/dL Lactic Acid (0.4-2.0) mmol/L Calcium 8.6 L Cancelled (8.7-10.3) mg/dL Total Bilirubin 0.2 Cancelled (0.2-1.0) mg/dL AST 22 Cancelled (15-37) U/L ALT 24 Cancelled (12-78) U/L Alkaline Phosphatase 102 Cancelled (46-116) IU/L C-Reactive Protein (0.0-0.9) mg/dL Total Protein 6.6 Cancelled (6.4-8.2) g/dL Albumin 3.17 Cancelled (3.00-4.80) g/dL Lipase 78 (73-393) U/L Specimen Type Urine Color (YELLOW) Urine Appearance (CLEAR) Urine pH (5.0-9.0) Ur Specific [place] (1.005-1.030) Urine Protein (NEGATIVE) mg/dL Urine Glucose (UA) (NEGATIVE) mg/dL Urine Ketones (NEGATIVE) mg/dL Urine Occult Blood (NEGATIVE) Urine Nitrite (NEGATIVE) Urine Bilirubin (NEGATIVE) Urine Urobilinogen (0.2-1.0) E.U./dL Ur Leukocyte Esterase (NEGATIVE) Urine RBC /HPF Urine WBC /HPF Ur Epithelial Cells /LPF Urine Bacteria (NONE TO FEW) /HPF 06/04/18 06/04/18 06/04/18 Range/Units 12:00 12:00 12:20 WBC (5.00-10.00) 10^3/uL RBC (3.80-5.50) 10^6/uL Hgb (12.0-16.0) g/dL Hct (37.0-47.0) % MCV (82.0-92.0) fL MCH (27.0-31.0) pg MCHC (32.0-36.0) g/dL RDW (11.5-14.5) % Plt Count (150-400) 10^3/uL MPV (7.4-10.4) fL Immature Gran % (Auto) (0.0-5.0) % Neut % (Auto) (50.0-70.0) % Lymph % (Auto) (20.0-40.0) % [place] % (Auto) (2.0-8.0) % Eos % (Auto) (1.0-3.0) % Baso % (Auto) (0.0-1.0) % Immature Gran # (Auto) (0.00-0.50) 10^3/uL Neut # (Auto) (2.50-7.00) 10^3/uL Lymph # (Auto) (1.00-4.00) 10^3/uL [place] # (Auto) (0.10-0.80) 10^3/uL Eos # (Auto) (0.10-0.30) 10^3/uL Baso # (Auto) (0.00-0.10) 10^3/uL Sodium (136-145) mmol/L Potassium (3.3-5.3) mmol/L Chloride (98-115) mmol/L Carbon Dioxide (21.0-32.0) mmol/L Anion Gap (5-15) mmol/L BUN (6-25) mg/dL Creatinine (0.51-1.17) mg/dL Est Cr Clr Drug Dosing mL/min Estimated GFR (MDRD) mL/min Glucose mg/dL Lactic Acid 2.2 H (0.4-2.0) mmol/L Calcium (8.7-10.3) mg/dL Total Bilirubin (0.2-1.0) mg/dL AST (15-37) U/L ALT (12-78) U/L Alkaline Phosphatase (46-116) IU/L C-Reactive Protein 1.4 H (0.0-0.9) mg/dL Total Protein (6.4-8.2) g/dL Albumin (3.00-4.80) g/dL Lipase (73-393) U/L Specimen Type Urincc Urine Color Yellow (YELLOW) Urine Appearance Slightly cloudy H (CLEAR) Urine pH 5.0 (5.0-9.0) Ur Specific [place] 1.020 (1.005-1.030) Urine Protein Negative (NEGATIVE) mg/dL Urine Glucose (UA) Negative (NEGATIVE) mg/dL Urine Ketones Negative (NEGATIVE) mg/dL Urine Occult Blood Negative (NEGATIVE) Urine Nitrite Negative (NEGATIVE) Urine Bilirubin Negative (NEGATIVE) Urine Urobilinogen 0.2 (0.2-1.0) E.U./dL Ur Leukocyte Esterase Negative (NEGATIVE) Urine RBC 0-5 /HPF Urine WBC 0-5 /HPF Ur Epithelial Cells Moderate H /LPF Urine Bacteria Few (NONE TO FEW) /HPF Meds: Medications Generic Name Dose Route Start Last Admin Trade Name Freq PRN Reason Stop Dose Admin Sodium Chloride 50 mls @ 3 mls/sec 06/04/18 14:15 Normal Saline IV ASDIRECTED NOEL Discontinued Medications Generic Name Dose Route Start Last Admin Trade Name Freq PRN Reason Stop Dose Admin Diatrizoate Meglum/Diatrizoate Sod 120 ml 06/04/18 14:15 Gastrografin 37% PO 06/04/18 14:16 ONETIME ONE Hydromorphone HCl 1 mg 06/04/18 13:42 06/04/18 13:55 Dilaudid IVPUSH 06/04/18 13:43 1 mg ONETIME ONE Administration Hydromorphone HCl 1 mg 06/04/18 16:15 Dilaudid IVPUSH 06/04/18 16:16 ONETIME ONE Sodium Chloride 1,000 mls @ 999 mls/hr 06/04/18 12:33 06/04/18 12:35 Normal Saline IV 06/04/18 13:33 999 mls/hr .BOLUS ONE Administration Iopamidol 75 ml 06/04/18 14:15 Isovue-300 (61%) IV 06/04/18 14:16 ONETIME ONE Ketorolac Tromethamine 30 mg 06/04/18 12:39 06/04/18 12:43 Toradol IVPUSH 06/04/18 12:40 30 mg ONETIME ONE Administration - Re-Assessments/Exams Free Text/Narrative Re-Assessment/Exam: 06/04/18 16:12 Pain is reduced some with Toradol: from 10 to 8 and then down to 6 with Dilaudid. She says this is the lowest her pain has been in 10 days. CRP and Lactic acid slightly elevated but other labs normal. CT is repeated and compared with 8 days ago. I visited with the radiologist. He looked thoroughly over the CT scan especially the left abdomen and he feels the most likely problem may be a diverticulitis. Discussed with her PCP and will treat outpatient with Cipro and Metronidazole along with Ketorolac and her oxycodone. I discussed with her that if her pain is unable to be managed on this regimen the next option would likely be inpatient on IV medication. She wants to try at home. Discussed findings and lack of definitive diagnosis and encourage her to make sure to follow up with the referral to general surgeon made through her PCP last week. Patient discharged to home in stable condition. Departure - Departure Time of Disposition: 16:09 Disposition: Home, Self-Care 01 Condition: Good Clinical Impression: Diverticulitis large intestine w/o perforation or abscess w/o bleeding, Left lateral abdominal pain - Discharge Information Instructions: Diverticulitis, [id number] Referrals: Jacinda Rossi MD [Primary Care Provider] - Forms: ED Department Discharge Additional Instructions: 1. Drink 8 cups of water daily. 2. Continue the your usual diet for your diverticulosis but no alcohol while taking metronidazole. 3. Take the medications as directed, along with your oxycodone as directed. 4. Follow up with your PCP next week for recheck or sooner if worsening. - My Orders Last 24 Hours: My Active Orders 06/04/18 13:07 Abdomen Pelvis w Cont [CT] Stat 06/04/18 14:15 Sodium Chloride 0.9% [Normal Saline] 50 ml IV ASDIRECTED - Assessment/Plan Last 24 Hours: My Active Orders 06/04/18 13:07 Abdomen Pelvis w Cont [CT] Stat 06/04/18 14:15 Sodium Chloride 0.9% [Normal Saline] 50 ml IV ASDIRECTED
[2018-06-04] MEDS ORDERED: HYDROmorphone 1 MG/ML Syringe IVPUSH ONE ×2 (13:42→16:15)
[2018-06-04] MEDS ORDERED: Sodium Chloride 0.9% 50 ML IV SCH (14:15)
[2018-06-04] MEDS ORDERED: Diatrizoate Meglumine/Diatrizoate Sodium 37% 120 ML Bottle PO ONE (14:15)
[2018-06-04] MEDS ORDERED: Iopamidol 612 MG/ML 75 ML Bottle IV ONE (14:15)
[2018-06-04 14:19] VITALS: BP 123/44
== END 2018-06-04 16:30 | disposition home or self-care (01) ==
LOC: KA.ED 11:37
DX: K57.32 Diverticulitis of large intestine without perforation or abscess without bleeding (principal); E78.00 Pure hypercholesterolemia, unspecified; E11.9 Type 2 diabetes mellitus without complications; F17.210 Nicotine dependence, cigarettes, uncomplicated; Z88.5 Allergy status to narcotic agent; Z88.7 Allergy status to serum and vaccine; Z79.899 Other long term (current) drug therapy; Z79.84 Long term (current) use of oral hypoglycemic drugs
CPT/HCPCS: 74177; 80053; 81001; 83605; 83690; 85025; 86140; 96361; 96374; 96375; 96376; 99284; J1170; J1885; J7030; J7050; Q9963; Q9967

== ENCOUNTER 2020-05-02 11:20 | Emergency (ER) | payer MEDICARE, BC ==
--- NOTE | 2020-05-02 11:45 | EDM.PDOC ---
ED HPI GENERAL MEDICAL PROBLEM - General Chief Complaint: General Stated Complaint: short of breath fever/chills Time Seen by Provider: 05/02/20 11:20 Source of Information: Reports: Patient, EMS History Limitations: Reports: No Limitations - History of Present Illness INITIAL COMMENTS - FREE TEXT/NARRATIVE: Developed fever chills, and malaise, yesterday progressively worsening into today. Muscle aches with increased stools, shortness of breath. 96% saturation upon arrival of EMS increasing to 100% on 3 L nasal cannula. Denies chest pain. Increasing shortness of breath although sating adequate. Onset: Gradual Onset Date: 05/01/20 Onset Time: 15:00 Duration: Day(s):, Getting Worse Location: Reports: Chest, Generalized Quality: Reports: Ache, Dull Severity: Severe Improves with: Reports: None Worsens with: Reports: None Context: Reports: Other Associated Symptoms: Reports: Cough, Fever/Chills, Headaches, Loss of Appetite, Malaise, Shortness of Breath Generalized Pain Score (Numeric/FACES): 3 - Related Data Allergies Allergy/AdvReac Type Severity Reaction Status Date / Time primidone Allergy Hallucinati Verified 05/02/20 11:58 ons Tetanus Vaccines and Toxoid Allergy Anaphylactic Verified 05/02/20 11:48 [Tetanus Vaccines & Toxoid] Shock Home Meds: Home Meds metFORMIN [Glucophage XR] 1,000 mg PO BIDMEALS 01/16/14 [History] Gabapentin 900 mg PO TID 01/30/16 [History] atorvaSTATin [Lipitor] 10 mg PO BEDTIME 01/07/17 [History] Rizatriptan Benzoate [Rizatriptan] 10 mg PO ASDIRECTED PRN 05/06/17 [History] glipiZIDE [Glucotrol XL] 5 mg PO BIDMEALS 06/09/17 [History] Baclofen 10 mg PO TID PRN 05/02/20 [History] Gabapentin [Neurontin] 600 mg PO BEDTIME PRN 05/02/20 [History] Morphine Sulfate 15 mg PO Q4H PRN 05/02/20 [History] Ondansetron [Zofran ODT] 4 mg PO Q6H PRN 05/02/20 [History] Propranolol HCl 20 mg PO BID 05/02/20 [History] Past Medical History HEENT History: Reports: Cataract, Impaired Vision, Sinusitis Cardiovascular History: Reports: Angina, High Cholesterol Other Cardiovascular History: chest pain 1 week ago with a stress test scheduled for january 27 Respiratory History: Reports: Sleep Apnea, Other (See Below) Other Respiratory History: uses bipap at night. Every day smoker x60 years. 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: Musculoskeletal History: Reports: Back Pain, Chronic, Osteoarthritis, Osteoporosis, Other (See Below) Other Musculoskeletal History: Degenetive joint disease Neurological History: Reports: Headaches, Chronic, Migraines, Neuropathy, Lori pheral Psychiatric History: Reports: None Endocrine/Metabolic History: Reports: Diabetes, Type II Oncologic (Cancer) History: Reports: Basal Cell Carcinoma - Infectious Disease History Infectious Disease History: Reports: Chicken Pox, Measles, Mumps - Past Surgical History Cardiovascular Surgical History: Reports: Other (See Below) Other Cardiovascular Surgeries/Procedures: angiogram Respiratory Surgical History: Reports: Lung Biopsies, Pneumonectomy, Other (See Below) Other Respiratory Surgeries/Procedures: Left lower lung - nonmalignant GI Surgical History: Reports: Colonoscopy Female Surgical History: Reports: Hysterectomy Neurological Surgical History: Reports: None Musculoskeletal Surgical History: Reports: Other (See Below) Other Musculoskeletal Surgeries/Procedures:: ganglion cyst removal. Dermatological Surgical History: Reports: Skin Biopsy - Past Imaging History Past Imaging History: Reports: CAT Scan, Xray Social & Family History - Family History Family Medical History: Noncontributory - Tobacco Use Smoking Status *Q: Current Every Day Smoker Tobacco Use Within Last Twelve Months: Cigarettes Years of Tobacco use: 60 Month/Year Tobacco Last Used: 04/2020 Smoking Cessation Information Provided To Patient: No - Caffeine Use Caffeine Use: Reports: Coffee, Soda - Alcohol Use Alcohol Use History: No - Recreational Drug Use Recreational Drug Use: No - Living Situation & Occupation Living situation: Reports: , with Spouse Occupation: Retired ED ROS GENERAL - Review of Systems Review Of Systems: See Below Constitutional: Reports: Fever, Chills, Malaise HEENT: Reports: No Symptoms Respiratory: Reports: Shortness of Breath, Cough Cardiovascular: Reports: Dyspnea on Exertion. Denies: Chest Pain, Claudication Endocrine: Reports: Fatigue, High Glucose GI/Abdominal: Reports: Other (Increased bowel movements) : Reports: No Symptoms Musculoskeletal: Reports: Other (generalized pain) Skin: Reports: No Symptoms Neurological: Reports: Headache Psychiatric: Reports: Anxiety Hematologic/Lymphatic: Reports: No Symptoms Immunologic: Reports: No Symptoms ED EXAM, GENERAL - Physical Exam Exam: See Below Exam Limited By: No Limitations General Appearance: Alert, WD/WN, Anxious, Moderate Distress Ears: Normal External Exam, Normal Canal, Hearing Grossly Normal Nose: Normal Inspection, Normal Mucosa, No Blood. No: Nasal Tenderness, Nasal Swelling, Nasal Drainage Throat/Mouth: Normal Inspection, Normal Lips, Normal Teeth, Normal Oropharynx, Normal Voice, No Airway Compromise Head: Atraumatic, Normocephalic Neck: Normal Inspection, Supple, Non-Tender, Full Range of Motion Respiratory/Chest: No Accessory Muscle Use, Decreased Breath Sounds (left and bases bilateral), Rhonchi Cardiovascular: Normal Peripheral Pulses, Regular Rate, Rhythm, No Edema, No Murmur, Other (distant tones) GI/Abdominal: Normal Bowel Sounds, Soft, Non-Tender, No Organomegaly, No Mass, Other (body habitus limts examination). No: Distended, Guarding, Rigid, Rebound, Tender (Female) Exam: Deferred Rectal (Female) Exam: Deferred Back Exam: Normal Inspection, Full Range of Motion. No: CVA Tenderness (L), CVA Tenderness (R) Extremities: Normal Inspection, No Pedal Edema, Other (generalized aches to musculature) Neurological: Alert, Oriented, CN II-XII Intact, Normal Cognition, No Motor/Sensory Deficits Psychiatric: Anxious Skin Exam: Warm, Dry, Intact, Normal Color Lymphatic: No Adenopathy EKG INTERPRETATION EKG Date: 05/02/20 Time: 13:10 Rhythm: NSR [place]: Normal P-Wave: Present QRS: Normal ST-T: Normal QT: Normal Course - Vital Signs Last Recorded V/S: Last Vital Signs Temp 36.2 C 05/02/20 11:37 Pulse 77 05/02/20 11:37 Resp 20 05/02/20 11:37 BP 139/65 05/02/20 11:37 Pulse Ox 99 05/02/20 11:37 - Orders/Labs/Meds Orders: Active Orders 24 hr Category Date Time Status EKG Documentation Completion [RC] ASDIRECTED Care 05/02/20 12:55 Active Peripheral IV Care [RC] . DIRECTED Care 05/02/20 11:56 Active Morphine [Morphine 10 MG/5 ML] Med 05/02/20 12:50 Active 10 mg PO Q4H PRN Sodium Chloride 0.9% [Normal Saline] 1,000 ml Med 05/02/20 12:00 Active IV ASDIRECTED Sodium Chloride 0.9% [Saline Flush] Med 05/02/20 11:56 Active 10 ml FLUSH Q8HR PRN Peripheral IV Insertion Adult [OM.PC] Routine Oth 05/02/20 11:56 Ordered EKG 12 Lead [EK] Urgent Ther 05/02/20 12:55 Ordered Medication Orders Sodium Chloride (Normal Saline) 1,000 mls @ 250 mls/hr IV ASDIRECTED [facility] Last Admin: 05/02/20 12:04 Dose: 250 mls/hr Documented by: KORY Morphine Sulfate (Morphine 10 Mg/5 Ml) 10 mg PO Q4H PRN PRN Reason: Pain (severe 7-10) Last Admin: 05/02/20 12:54 Dose: 10 mg Documented by: KORY Sodium Chloride (Saline Flush) 10 ml FLUSH Q8HR PRN PRN Reason: keep vein open Labs: Laboratory Tests 05/02/20 05/02/20 05/02/20 Range/Units 11:30 11:38 11:38 WBC 8.97 (5.00-10.00) 10^3/uL RBC 5.28 (3.80-5.50) 10^6/uL Hgb 16.6 H D (12.0-16.0) g/dL Hct 49.4 H (37.0-47.0) % MCV 93.6 H D (82.0-92.0) fL MCH 31.4 H (27.0-31.0) pg MCHC 33.6 (32.0-36.0) g/dL RDW 12.2 (11.5-14.5) % Plt Count 256 (150-400) 10^3/uL MPV 9.3 (7.4-10.4) fL Immature Gran % (Auto) 0.1 (0.0-5.0) % Neut % (Auto) 66.4 (50.0-70.0) % Lymph % (Auto) 26.1 (20.0-40.0) % [place] % (Auto) 5.8 (2.0-8.0) % Eos % (Auto) 1.0 (1.0-3.0) % Baso % (Auto) 0.6 (0.0-1.0) % Neut # (Auto) 5.96 (2.50-7.00) 10^3/uL Lymph # (Auto) 2.34 (1.00-4.00) 10^3/uL [place] # (Auto) 0.52 (0.10-0.80) 10^3/uL Eos # (Auto) 0.09 L (0.10-0.30) 10^3/uL Baso # (Auto) 0.05 (0.00-0.10) 10^3/uL Immature Gran # (Auto) 0.01 (0.00-0.50) 10^3/uL D-Dimer, Quantitative (<400) ng/mL Sodium 140 (136-145) mmol/L Potassium 4.3 (3.3-5.3) mmol/L Chloride 102 (98-115) mmol/L Carbon Dioxide 27.1 (21.0-32.0) mmol/L Anion Gap 15.2 H (5-15) mmol/L BUN 14 (6-25) mg/dL Creatinine 0.59 (0.51-1.17) mg/dL Est Cr Clr Drug Dosing 84.39 mL/min Estimated GFR (MDRD) > 60 mL/min Glucose 155 H (75 - 99) mg/dL Lactic Acid (0.4-2.0) mmol/L Calcium 8.9 (8.7-10.3) mg/dL Total Bilirubin 0.7 (0.2-1.0) mg/dL AST 30 (15-37) U/L ALT 25 (12-78) U/L Alkaline Phosphatase 144 H (46-116) IU/L Total Protein 7.7 (6.4-8.2) g/dL Albumin 3.59 (3.00-4.80) g/dL COVID-19 ([facility]) Negative (NEGATIVE) 05/02/20 05/02/20 Range/Units 11:38 11:43 WBC (5.00-10.00) 10^3/uL RBC (3.80-5.50) 10^6/uL Hgb (12.0-16.0) g/dL Hct (37.0-47.0) % MCV (82.0-92.0) fL MCH (27.0-31.0) pg MCHC (32.0-36.0) g/dL RDW (11.5-14.5) % Plt Count (150-400) 10^3/uL MPV (7.4-10.4) fL Immature Gran % (Auto) (0.0-5.0) % Neut % (Auto) (50.0-70.0) % Lymph % (Auto) (20.0-40.0) % [place] % (Auto) (2.0-8.0) % Eos % (Auto) (1.0-3.0) % Baso % (Auto) (0.0-1.0) % Neut # (Auto) (2.50-7.00) 10^3/uL Lymph # (Auto) (1.00-4.00) 10^3/uL [place] # (Auto) (0.10-0.80) 10^3/uL Eos # (Auto) (0.10-0.30) 10^3/uL Baso # (Auto) (0.00-0.10) 10^3/uL Immature Gran # (Auto) (0.00-0.50) 10^3/uL D-Dimer, Quantitative 256 (<400) ng/mL Sodium (136-145) mmol/L Potassium (3.3-5.3) mmol/L Chloride (98-115) mmol/L Carbon Dioxide (21.0-32.0) mmol/L Anion Gap (5-15) mmol/L BUN (6-25) mg/dL Creatinine (0.51-1.17) mg/dL Est Cr Clr Drug Dosing mL/min Estimated GFR (MDRD) mL/min Glucose (75 - 99) mg/dL Lactic Acid 1.7 (0.4-2.0) mmol/L Calcium (8.7-10.3) mg/dL Total Bilirubin (0.2-1.0) mg/dL AST (15-37) U/L ALT (12-78) U/L Alkaline Phosphatase (46-116) IU/L Total Protein (6.4-8.2) g/dL Albumin (3.00-4.80) g/dL COVID-19 ([facility]) (NEGATIVE) Meds: Medications Generic Name Dose Route Start Last Admin Trade Name Freq PRN Reason Stop Dose Admin Sodium Chloride 1,000 mls @ 250 mls/hr 05/02/20 12:00 05/02/20 12:04 Normal Saline IV 250 mls/hr ASDIRECTED NOEL Administration Morphine Sulfate 10 mg 05/02/20 12:50 05/02/20 12:54 Morphine 10 Mg/5 Ml PO 10 mg Q4H PRN Administration Pain (severe 7-10) Sodium Chloride 10 ml 05/02/20 11:56 Saline Flush FLUSH Q8HR PRN keep vein open Discontinued Medications Generic Name Dose Route Start Last Admin Trade Name Freq PRN Reason Stop Dose Admin Sodium Chloride 10 ml 05/02/20 11:55 05/02/20 12:04 Saline Flush FLUSH 10 ml Q8HR PRN Administration keep vein open Departure - Departure Time of Disposition: 15:30 Disposition: Home, Self-Care 01 Condition: Good Clinical Impression: Malaise, Smoking greater than 40 pack years - Discharge Information *PRESCRIPTION DRUG MONITORING PROGRAM REVIEWED*: Not Applicable *COPY OF PRESCRIPTION DRUG MONITORING REPORT IN PATIENT MANDY: Not Applicable Referrals: Jacinda Rossi MD [Primary Care Provider] - Forms: ED Department Discharge Additional Instructions: No significant findings requiring admission to the hospital were found today on your evaluation. You will need to go home and rest, avoiding any stressors, try remain in a stable environment such as air conditioned home. It is not good to be going in and out of heat and humidity into air conditioning. You need to try completely quit smoking, making sure to avoid any lung irritations at this time. There is no evidence of bacterial infection on your blood work, no changes on your chest x-ray, and COVID 19 screening was negative. Continue your medications as directed. Your pain today may be worse due to the fact you had not taken your medications for 24 hours prior to arriving in the emergency department. Contact the clinic for follow-up with Dr. Rossi at your convenience. Sepsis Event Note (ED) - Focused Exam Vital Signs: Vital Signs Temp Pulse Resp BP Pulse Ox 05/02/20 11:37 36.2 C 77 20 139/65 99 - Problem List & Annotations (1) Fever and chills SNOMED Code(s): 107134906 Code(s): R50.9 - FEVER, UNSPECIFIED Status: Acute Priority: High Current Visit: Yes (2) Malaise SNOMED Code(s): 050011040 Code(s): R53.81 - OTHER MALAISE Status: Acute Priority: High Current Visit: Yes (3) Shortness of breath SNOMED Code(s): 195535165 Code(s): R06.02 - SHORTNESS OF BREATH Status: Chronic Priority: High Current Visit: Yes (4) Change in consistency of stool SNOMED Code(s): 350751206 Code(s): R19.5 - OTHER FECAL ABNORMALITIES Status: Acute Priority: Medium Current Visit: Yes (5) Smoking greater than 40 pack years SNOMED Code(s): 54548107 Code(s): F17.210 - NICOTINE DEPENDENCE, CIGARETTES, UNCOMPLICATED Status: Chronic Priority: High Current Visit: Yes - Problem List Review Problem List Initiated/Reviewed/Updated: Yes - My Orders Last 24 Hours: My Active Orders 05/02/20 11:56 Peripheral IV Care [RC] . DIRECTED Sodium Chloride 0.9% [Saline Flush] 10 ml FLUSH Q8HR PRN Peripheral IV Insertion Adult [OM.PC] Routine 05/02/20 12:00 Sodium Chloride 0.9% [Normal Saline] 1,000 ml IV ASDIRECTED 05/02/20 12:50 Morphine [Morphine 10 MG/5 ML] 10 mg PO Q4H PRN 05/02/20 12:55 EKG Documentation Completion [RC] ASDIRECTED EKG 12 Lead [EK] Urgent - Assessment/Plan Last 24 Hours: My Active Orders 05/02/20 11:56 Peripheral IV Care [RC] . DIRECTED Sodium Chloride 0.9% [Saline Flush] 10 ml FLUSH Q8HR PRN Peripheral IV Insertion Adult [OM.PC] Routine 05/02/20 12:00 Sodium Chloride 0.9% [Normal Saline] 1,000 ml IV ASDIRECTED 05/02/20 12:50 Morphine [Morphine 10 MG/5 ML] 10 mg PO Q4H PRN 05/02/20 12:55 EKG Documentation Completion [RC] ASDIRECTED EKG 12 Lead [EK] Urgent Plan: No significant findings requiring admission to the hospital were found today on your evaluation. You will need to go home and rest, avoiding any stressors, try remain in a stable environment such as air conditioned home. It is not good to be going in and out of heat and humidity into air conditioning. You need to try completely quit smoking, making sure to avoid any lung irritations at this time. There is no evidence of bacterial infection on your blood work, no changes on your chest x-ray, and COVID 19 screening was negative. Continue your medications as directed. Your pain today may be worse due to the fact you had not taken your medications for 24 hours prior to arriving in the emergency department. Contact the clinic for follow-up with Dr. Rossi at your convenience.
[2020-05-02 11:46] VITALS: BP 139/65; PULSE 77
[2020-05-02] MEDS ORDERED: Sodium Chloride 0.9% 10 ML Syringe FLUSH PRN ×2 (11:55→11:56)
[2020-05-02] MEDS ORDERED: Sodium Chloride 0.9% 1,000 ML IV SCH (12:00)
[2020-05-02 12:16] LABS: ANION GAP 15.2 mmol/L (5-15); CHLORIDE,CL 102 mmol/L (98-115); SODIUM,NA 140 mmol/L (136-145)
[2020-05-02] MEDS ORDERED: Morphine Solution 10 MG/5 ML UD Cup PO PRN (12:50)
--- NOTE | 2020-05-02 13:35 | CR ---
[id number] RAD/RAD Chest PA And Lateral EXAM: RAD Chest PA And Lateral INDICATION: SHORTNESS OF BREATH. COMPARISON: 2016. DISCUSSION: Mild cardiomegaly and central vascular congestion, similar to the prior examination. No infiltrate, effusion, pneumothorax, or edema. IMPRESSION: No acute findings or significant change from the prior examination. Hunter Burgos MD 05/02/20 [id number] Thank you for allowing us to participate in the care of your patient.
== END 2020-05-02 15:50 | disposition home or self-care (01) ==
LOC: KA.ED 11:20
DX: R53.81 Other malaise (principal); E78.00 Pure hypercholesterolemia, unspecified; E11.42 Type 2 diabetes mellitus with diabetic polyneuropathy; G43.909 Migraine, unspecified, not intractable, without status migrainosus; F17.210 Nicotine dependence, cigarettes, uncomplicated; Z20.828 Contact with and (suspected) exposure to other viral communicable diseases; Z88.7 Allergy status to serum and vaccine; Z88.8 Allergy status to other drugs, medicaments and biological substances; Z79.84 Long term (current) use of oral hypoglycemic drugs; Z79.899 Other long term (current) drug therapy
CPT/HCPCS: 36415; 71046; 80053; 83605; 85025; 85379; 93005; 96360; 96361; 99284; 99285-25; A9270-GY; J7030; U0002

== ENCOUNTER 2020-09-18 13:18 | Emergency (ER) | payer MEDICARE, BC ==
[2020-09-18] MEDS ORDERED: Sodium Chloride 0.9% 10 ML Syringe FLUSH PRN (13:28)
[2020-09-18] MEDS: Sodium Chloride 0.9% 1,000 ML IV ONE ×2 (13:40→14:40)
--- NOTE | 2020-09-18 13:46 | EDM.PDOC ---
ED HPI GENERAL MEDICAL PROBLEM - General Chief Complaint: Gastrointestinal Problem Stated Complaint: NAUSEA/VOMITING/DIARHEA X 2 DAYS Time Seen by Provider: 09/18/20 13:20 Source of Information: Reports: Patient History Limitations: Reports: No Limitations - History of Present Illness INITIAL COMMENTS - FREE TEXT/NARRATIVE: 75 YO WF PRESENTS TO ER WITH 4 DAY HISTORY OF INTRACTABLE NAUSEA/VOMITING/DIARRHEA. PT REPORTS SHE HAS BEEN UNABLE TO HOLD DOWN ANY OF HER MEDICATIONS. PT REPORTS TAKING MORPHINE/NEURONTIN FOR CHRONIC BACK PAIN. PT DENIES FEVER/CHILLS, NO COUGH/CONGESTION OR KNOWN COVID EXPOSURES. PT REPORTS NO ABDOMINAL PAIN BUT STATES HER ABDOMEN FEELS SORE FROM ALL HER VOMITING OVER THE LAST FEW DAYS. PT DENIES ANY BLOOD IN STOOL OR NOTICING ANY BLACK TARRY STOOLS OVER THE LAST 4 DAYS. Onset Date: 09/15/20 Duration: Day(s): (4) Location: Reports: Generalized Severity: Moderate Improves with: Reports: None Worsens with: Reports: None Associated Symptoms: Reports: Nausea/Vomiting. Denies: Chest Pain, Cough, cough w sputum, Fever/Chills, Malaise, Shortness of Breath - Related Data Allergies Allergy/AdvReac Type Severity Reaction Status Date / Time primidone Allergy Hallucinati Verified 09/18/20 14:03 ons Tetanus Vaccines and Toxoid Allergy Anaphylactic Verified 09/18/20 14:03 [Tetanus Vaccines & Toxoid] Shock Home Meds: Home Meds metFORMIN [Glucophage XR] 1,000 mg PO BIDMEALS 01/16/14 [History] Gabapentin 900 mg PO TID 01/30/16 [History] atorvaSTATin [Lipitor] 10 mg PO BEDTIME 01/07/17 [History] Rizatriptan Benzoate [Rizatriptan] 10 mg PO ASDIRECTED PRN 05/06/17 [History] glipiZIDE [Glucotrol XL] 5 mg PO BIDMEALS 06/09/17 [History] Gabapentin [Neurontin] 600 mg PO BEDTIME PRN 05/02/20 [History] Morphine Sulfate 15 mg PO Q4H PRN 05/02/20 [History] Ondansetron [Zofran ODT] 4 mg PO Q6H PRN 05/02/20 [History] Propranolol HCl 20 mg PO BID 05/02/20 [History] DULoxetine [Cymbalta] 20 mg PO BID 09/18/20 [History] Ondansetron [Zofran ODT] 4 mg PO Q6H PRN #10 tab.dis 09/18/20 [Rx] Past Medical History - Past Health History Medical/Surgical History: Denies Medical/Surgical History HEENT History: Reports: Cataract, Impaired Vision, Sinusitis Cardiovascular History: Reports: Angina, High Cholesterol Other Cardiovascular History: chest pain 1 week ago with a stress test scheduled for january 27 Respiratory History: Reports: Sleep Apnea, Other (See Below) Other Respiratory History: uses bipap at night. Every day smoker x60 years. Gastrointestinal History: Reports: Other (See Below) Other Gastrointestinal History: recently diagnosed with diverticulitis on 05/28/18 Genitourinary History: Reports: None LOG CUT OFF SAWYER History: Reports: Musculoskeletal History: Reports: Back Pain, Chronic, Osteoarthritis, Osteoporosis, Other (See Below) Other Musculoskeletal History: Degenetive joint disease Neurological History: Reports: Headaches, Chronic, Migraines, Neuropathy, Peripheral Psychiatric History: Reports: None Endocrine/Metabolic History: Reports: Diabetes, Type II Oncologic (Cancer) History: Reports: Basal Cell Carcinoma - Infectious Disease History Infectious Disease History: Reports: Chicken Pox, Measles, Mumps - Past Surgical History Cardiovascular Surgical History: Reports: Other (See Below) Other Cardiovascular Surgeries/Procedures: angiogram Respiratory Surgical History: Reports: Lung Biopsies, Pneumonectomy, Other (See Below) Other Respiratory Surgeries/Procedures: Left lower lung - nonmalignant GI Surgical History: Reports: Colonoscopy Female Surgical History: Reports: Hysterectomy Neurological Surgical History: Reports: None Musculoskeletal Surgical History: Reports: Other (See Below) Other Musculoskeletal Surgeries/Procedures:: ganglion cyst removal. Dermatological Surgical History: Reports: Skin Biopsy - Past Imaging History Past Imaging History: Reports: CAT Scan, Xray Social & Family History - Family History Family Medical History: No Pertinent Family History - Caffeine Use Caffeine Use: Reports: Coffee, Soda - Living Situation & Occupation Living situation: Reports: , with Spouse Occupation: Retired ED ROS GENERAL - Review of Systems Review Of Systems: See Below Constitutional: Reports: No Symptoms HEENT: Reports: No Symptoms Respiratory: Reports: No Symptoms Cardiovascular: Reports: No Symptoms Endocrine: Reports: No Symptoms GI/Abdominal: Reports: No Symptoms, Diarrhea, Nausea, Vomiting : Reports: No Symptoms Musculoskeletal: Reports: No Symptoms Skin: Reports: No Symptoms Neurological: Reports: No Symptoms Psychiatric: Reports: No Symptoms Hematologic/Lymphatic: Reports: No Symptoms Immunologic: Reports: No Symptoms ED EXAM, GI/ABD - Physical Exam Exam: See Below Exam Limited By: No Limitations General Appearance: Alert, WD/WN, Mild Distress Throat/Mouth: Normal Inspection, Normal Lips, Normal Teeth, Normal Gums, Normal Oropharynx, Normal Voice, No Airway Compromise Head: Atraumatic, Normocephalic Neck: Normal Inspection, Supple, Non-Tender, Full Range of Motion Respiratory/Chest: No Respiratory Distress, Lungs Clear, Normal Breath Sounds, No Accessory Muscle Use, Chest Non-Tender Cardiovascular: Normal Peripheral Pulses, Regular Rate, Rhythm, No Edema, No Gallop, No JVD, No Murmur, No Rub GI/Abdominal Exam: Normal Bowel Sounds, Soft, Non-Tender, No Organomegaly, No Distention, No Abnormal Bruit, No Mass, Pelvis Stable Back Exam: Normal Inspection, Full Range of Motion, NT Extremities: Normal Inspection, Normal Range of Motion, Non-Tender, Normal Capillary Refill, No Pedal Edema Neurological: Alert, Oriented, CN II-XII Intact, Normal Cognition, Normal Gait, Normal Reflexes, No Motor/Sensory Deficits Psychiatric: Normal Affect, Normal Mood Skin Exam: Warm, Dry, Intact, Normal Color, No Rash Lymphatic: No Adenopathy Course - Vital Signs Last Recorded V/S: Last Vital Signs Temp 97.8 F 09/18/20 13:56 Pulse 79 09/18/20 15:00 Resp 13 09/18/20 15:00 BP 140/53 L 09/18/20 15:00 Pulse Ox 95 09/18/20 15:00 - Orders/Labs/Meds Orders: Active Orders 24 hr Category Date Time Status Peripheral IV Care [RC] . DIRECTED Care 09/18/20 13:28 Active Sodium Chloride 0.9% [Saline Flush] Med 09/18/20 13:28 Active 10 ml FLUSH Q8HR PRN Peripheral IV Insertion Adult [OM.PC] Routine Oth 09/18/20 13:28 Ordered Medication Orders Sodium Chloride (Saline Flush) 10 ml FLUSH Q8HR PRN PRN Reason: keep vein open Labs: Laboratory Tests 09/18/20 09/18/20 09/18/20 Range/Units 13:30 13:30 13:43 WBC 7.20 (5.00-10.00) 10^3/uL RBC 4.43 (3.80-5.50) 10^6/uL Hgb 14.3 D (12.0-16.0) g/dL Hct 42.7 (37.0-47.0) % MCV 96.4 H (82.0-92.0) fL MCH 32.3 H (27.0-31.0) pg MCHC 33.5 (32.0-36.0) g/dL RDW 12.1 (11.5-14.5) % Plt Count 194 (150-400) 10^3/uL MPV 9.1 (7.4-10.4) fL Immature Gran % (Auto) 0.3 (0.0-5.0) % Neut % (Auto) 65.8 (50.0-70.0) % Lymph % (Auto) 27.5 (20.0-40.0) % Isabela % (Auto) 5.3 (2.0-8.0) % Eos % (Auto) 0.8 L (1.0-3.0) % Baso % (Auto) 0.3 (0.0-1.0) % Neut # (Auto) 4.74 (2.50-7.00) 10^3/uL Lymph # (Auto) 1.98 (1.00-4.00) 10^3/uL Isabela # (Auto) 0.38 (0.10-0.80) 10^3/uL Eos # (Auto) 0.06 L (0.10-0.30) 10^3/uL Baso # (Auto) 0.02 (0.00-0.10) 10^3/uL Immature Gran # (Auto) 0.02 (0.00-0.50) 10^3/uL Sodium 140 (136-145) mmol/L Potassium 3.8 (3.5-5.1) mmol/L Chloride 106 (98-107) mmol/L Carbon Dioxide 28.2 (21.0-32.0) mmol/L Anion Gap 9.6 (5-15) mmol/L BUN 12 (7-18) mg/dL Creatinine 0.59 (0.51-1.17) mg/dL Est Cr Clr Drug Dosing 84.39 mL/min Estimated GFR (MDRD) > 60 mL/min Glucose 126 (70-140) mg/dL Calcium 9.0 (8.7-10.3) mg/dL Total Bilirubin 0.5 (0.2-1.0) mg/dL AST 11 L (15-37) U/L ALT 14 (14-63) U/L Alkaline Phosphatase 88 (46-116) U/L Total Protein 6.8 (6.4-8.2) g/dL Albumin 3.20 L (3.40-5.00) g/dL Lipase 49 L (73-393) U/L Specimen Type Urine Color (YELLOW) Urine Appearance (CLEAR) Urine pH (5.0-9.0) Ur Specific [place] (1.005-1.030) Urine Protein (NEGATIVE) mg/dL Urine Glucose (UA) (NEGATIVE) mg/dL Urine Ketones (NEGATIVE) mg/dL Urine Occult Blood (NEGATIVE) Urine Nitrite (NEGATIVE) Urine Bilirubin (NEGATIVE) Urine Urobilinogen (0.2-1.0) E.U./dL Ur Leukocyte Esterase (NEGATIVE) Urine RBC (0-5) /HPF Urine WBC (0-5) /HPF Ur Epithelial Cells /LPF Urine Bacteria (NONE TO FEW) /HPF Urine Mucus (NEGATIVE) /LPF SARS CoV-2 RNA Rapid KIMBERLY Negative (NEGATIVE) 09/18/20 Range/Units 15:05 WBC (5.00-10.00) 10^3/uL RBC (3.80-5.50) 10^6/uL Hgb (12.0-16.0) g/dL Hct (37.0-47.0) % MCV (82.0-92.0) fL MCH (27.0-31.0) pg MCHC (32.0-36.0) g/dL RDW (11.5-14.5) % Plt Count (150-400) 10^3/uL MPV (7.4-10.4) fL Immature Gran % (Auto) (0.0-5.0) % Neut % (Auto) (50.0-70.0) % Lymph % (Auto) (20.0-40.0) % Isabela % (Auto) (2.0-8.0) % Eos % (Auto) (1.0-3.0) % Baso % (Auto) (0.0-1.0) % Neut # (Auto) (2.50-7.00) 10^3/uL Lymph # (Auto) (1.00-4.00) 10^3/uL Isabela # (Auto) (0.10-0.80) 10^3/uL Eos # (Auto) (0.10-0.30) 10^3/uL Baso # (Auto) (0.00-0.10) 10^3/uL Immature Gran # (Auto) (0.00-0.50) 10^3/uL Sodium (136-145) mmol/L Potassium (3.5-5.1) mmol/L Chloride (98-107) mmol/L Carbon Dioxide (21.0-32.0) mmol/L Anion Gap (5-15) mmol/L BUN (7-18) mg/dL Creatinine (0.51-1.17) mg/dL Est Cr Clr Drug Dosing mL/min Estimated GFR (MDRD) mL/min Glucose (70-140) mg/dL Calcium (8.7-10.3) mg/dL Total Bilirubin (0.2-1.0) mg/dL AST (15-37) U/L ALT (14-63) U/L Alkaline Phosphatase (46-116) U/L Total Protein (6.4-8.2) g/dL Albumin (3.40-5.00) g/dL Lipase (73-393) U/L Specimen Type Urinvoid Urine Color Yellow (YELLOW) Urine Appearance Clear (CLEAR) Urine pH 6.0 (5.0-9.0) Ur Specific [place] >= 1.030 (1.005-1.030) Urine Protein Trace H (NEGATIVE) mg/dL Urine Glucose (UA) Negative (NEGATIVE) mg/dL Urine Ketones 40 H (NEGATIVE) mg/dL Urine Occult Blood Trace-intact H (NEGATIVE) Urine Nitrite Negative (NEGATIVE) Urine Bilirubin Small H (NEGATIVE) Urine Urobilinogen 1.0 (0.2-1.0) E.U./dL Ur Leukocyte Esterase Negative (NEGATIVE) Urine RBC 10-20 H (0-5) /HPF Urine WBC 0-5 (0-5) /HPF Ur Epithelial Cells Moderate H /LPF Urine Bacteria Rare (NONE TO FEW) /HPF Urine Mucus Few H (NEGATIVE) /LPF SARS CoV-2 RNA Rapid KIMBERLY (NEGATIVE) Meds: Medications Generic Name Dose Route Start Last Admin Trade Name Freq PRN Reason Stop Dose Admin Sodium Chloride 10 ml 09/18/20 13:28 Saline Flush FLUSH Q8HR PRN keep vein open Discontinued Medications Generic Name Dose Route Start Last Admin Trade Name Freq PRN Reason Stop Dose Admin Sodium Chloride 1,000 mls @ 999 mls/hr 09/18/20 13:28 09/18/20 13:40 Normal Saline IV 09/18/20 14:28 999 mls/hr .BOLUS ONE Administration Sodium Chloride 1,000 mls @ 999 mls/hr 09/18/20 14:35 09/18/20 14:40 Normal Saline IV 09/18/20 15:35 999 mls/hr .BOLUS ONE Administration Morphine Sulfate 4 mg 09/18/20 13:40 09/18/20 13:52 Morphine IVPUSH 09/18/20 13:41 4 mg ONETIME ONE Administration Morphine Sulfate Confirm 09/18/20 13:45 09/18/20 14:12 Morphine Administered 09/18/20 13:46 Not Given Dose 4 mg .ROUTE .STK-MED ONE Ondansetron HCl 4 mg 09/18/20 13:40 09/18/20 13:50 Zofran IVPUSH 09/18/20 13:41 4 mg ONETIME ONE Administration - Re-Assessments/Exams Free Text/Narrative Re-Assessment/Exam: 09/18/20 15:48 PT FEELING MUCH BETTER AFTER IVF AND ZOFRAN. PT AGREEABLE TO GO HOME AND PROGRESS DIET TOLERATED. PT UNDERSTANDS HER PAIN MEDICATIONS IF NOT TAKEN CAN CAUSE WITHDRAWAL LIKE SYMPTOMS. PT ALERT AND ORIENTED X 4 AND IN NAD. WILL DISCHARGE HOME Departure - Departure Time of Disposition: 15:52 Disposition: Home, Self-Care 01 Condition: Good Clinical Impression: Gastroenteritis - Discharge Information Prescriptions: Ondansetron [Zofran ODT] 4 mg PO Q6H PRN #10 tab.dis PRN Reason: Vomiting Instructions: Viral Gastroenteritis, Adult Referrals: Jacinda Rossi MD [Primary Care Provider] - Forms: ED Department Discharge Additional Instructions: 1. DISCHARGE HOME 2. ZOFRAN 4MG ODT Q6 HRS PRN VOMITING 3. CLEAR LIQUID DIET AND PROGRESS TOLERATED 4. FOLLOW UP WITH PCP FOR FURTHER EVALUATION AND TREATMENT 5. RETURN TO ER FOR WORSENING SYMPTOMS Sepsis Event Note (ED) - Focused Exam Vital Signs: Vital Signs Temp Pulse Resp BP Pulse Ox 09/18/20 15:00 79 13 140/53 L 95 09/18/20 14:15 75 10 L 138/58 L 92 L 09/18/20 14:00 79 12 128/54 L 92 L 09/18/20 13:56 97.8 F 73 18 144/72 H 94 L 09/18/20 13:45 79 20 144/63 H 97 09/18/20 13:30 73 15 145/67 H 95 - My Orders Last 24 Hours: My Active Orders 09/18/20 13:28 Peripheral IV Care [RC] . DIRECTED Sodium Chloride 0.9% [Saline Flush] 10 ml FLUSH Q8HR PRN Peripheral IV Insertion Adult [OM.PC] Routine - Assessment/Plan Last 24 Hours: My Active Orders 09/18/20 13:28 Peripheral IV Care [RC] . DIRECTED Sodium Chloride 0.9% [Saline Flush] 10 ml FLUSH Q8HR PRN Peripheral IV Insertion Adult [OM.PC] Routine Assessment:: 1. ACUTE GASTROENTERITIS- IMPROVED Plan: 1. DISCHARGE HOME 2. ZOFRAN 4MG ODT Q6 HRS PRN VOMITING 3. CLEAR LIQUID DIET AND PROGRESS TOLERATED 4. FOLLOW UP WITH PCP FOR FURTHER EVALUATION AND TREATMENT 5. RETURN TO ER FOR WORSENING SYMPTOMS
[2020-09-18] MEDS: Ondansetron 4 MG/2 ML SDV IVPUSH ONE (13:50)
[2020-09-18] MEDS: Morphine 4 MG/ML Syringe IVPUSH ONE (13:52)
[2020-09-18 14:08] LABS: ANION GAP 9.6 mmol/L (5-15); CHLORIDE,CL 106 mmol/L (98-107); SODIUM,NA 140 mmol/L (136-145)
[2020-09-18] MEDS: Morphine 4 MG/ML VIAL ONE (14:12)
[2020-09-18 15:01] VITALS: BP 140/53; PULSE 79
== END 2020-09-18 16:10 | disposition home or self-care (01) ==
LOC: KA.ED 13:18
DX: K52.9 Noninfective gastroenteritis and colitis, unspecified (principal); E78.00 Pure hypercholesterolemia, unspecified; E11.9 Type 2 diabetes mellitus without complications; E11.42 Type 2 diabetes mellitus with diabetic polyneuropathy; Z20.822 Contact with and (suspected) exposure to COVID-19; Z88.8 Allergy status to other drugs, medicaments and biological substances; Z88.7 Allergy status to serum and vaccine; Z79.899 Other long term (current) drug therapy; Z79.84 Long term (current) use of oral hypoglycemic drugs
CPT/HCPCS: 80053; 81001; 83690; 85025; 96374; 96375; 99284; 99284-25; J2270; J2405; J7030; U0002

== ENCOUNTER 2021-08-29 10:24 | Inpatient (IN) | payer MEDICARE, BC ==
--- NOTE | 2021-08-29 11:19 | EDM.PDOC ---
ED HPI GENERAL MEDICAL PROBLEM - General Chief Complaint: General Stated Complaint: LOW BLOOD SUGAR Time Seen by Provider: 08/29/21 11:03 Source of Information: Reports: Patient, Significant Other History Limitations: Reports: No Limitations - History of Present Illness INITIAL COMMENTS - FREE TEXT/NARRATIVE: Patient presents via EMS with report of LOC due to low blood sugar. This morning her couldn't awaken her so called the ambulance. On arrival they couldn't get any glucose result so gave her a dose of glucagon. Soon after she became alert and POC glucose was 82. In ER POC glucose is 85 and patient is awake, alert, and appropriate. She denies any pain in chest, abdomen, or elsewhere. She doesn't remember what happened this morning. Her doesn't know how long she was unconscious since she was asleep when the hypoglycemia developed. She has diabetes and takes glipizide but no insulin or other diabetes medications. She says her glucose was low yesterday morning as well; they measured 50 but she felt okay. We are giving her some toast and OJ as soon as lab is done drawing blood. Her tells us that he wonders if she had a stroke 4 days ago. She became very sleepy and weak in her legs but primarily in her arms and hands. She also seemed to stare off when reading [employer] cards. Since then she hasn't been very active, he doesn't know if she has walked at all. He didn't notice any facial droop, focal weakness, or other asymmetry, but did think her speech was slurred or more difficult to understand. Treatments DIRECTOR OF REGULATORY AFFAIRS: Reports: Glucagon - Related Data Allergies Allergy/AdvReac Type Severity Reaction Status Date / Time primidone Allergy Hallucinati Verified 08/29/21 10:57 ons Tetanus Vaccines and Toxoid Allergy Anaphylactic Verified 08/29/21 10:57 [Tetanus Vaccines & Toxoid] Shock Home Meds: Home Meds Gabapentin 900 mg PO TID 01/30/16 [History] atorvaSTATin [Lipitor] 10 mg PO BEDTIME 01/07/17 [History] Rizatriptan Benzoate [Rizatriptan] 10 mg PO ASDIRECTED PRN 05/06/17 [History] glipiZIDE [Glucotrol XL] 5 mg PO BIDMEALS 06/09/17 [History] Gabapentin [Neurontin] 600 mg PO BEDTIME PRN 05/02/20 [History] Morphine Sulfate 15 mg PO Q4H PRN 05/02/20 [History] Propranolol HCl 20 mg PO BID 05/02/20 [History] DULoxetine [Cymbalta] 20 mg PO BID 09/18/20 [History] Ondansetron [Zofran ODT] 4 mg PO Q6H PRN #10 tab.dis 09/18/20 [Rx] Past Medical History - Past Health History Medical/Surgical History: Denies Medical/Surgical History HEENT History: Reports: Cataract, Impaired Vision, Sinusitis Cardiovascular History: Reports: Angina, High Cholesterol Other Cardiovascular History: chest pain 1 week ago with a stress test scheduled for january 27 Respiratory History: Reports: Sleep Apnea, Other (See Below) Other Respiratory History: uses bipap at night. Every day smoker x60 years. Gastrointestinal History: Reports: Other (See Below) Other Gastrointestinal History: recently diagnosed with diverticulitis on 05/28/18 Genitourinary History: Reports: None [facility]ER History: Reports: Musculoskeletal History: Reports: Back Pain, Chronic, Osteoarthritis, Osteoporosis, Other (See Below) Other Musculoskeletal History: Degenetive joint disease Neurological History: Reports: Headaches, Chronic, Migraines, Neuropathy, Peripheral Psychiatric History: Reports: None Endocrine/Metabolic History: Reports: Diabetes, Type II Oncologic (Cancer) History: Reports: Basal Cell Carcinoma - Infectious Disease History Infectious Disease History: Reports: Chicken Pox, Measles, Mumps - Past Surgical History Cardiovascular Surgical History: Reports: Other (See Below) Other Cardiovascular Surgeries/Procedures: angiogram Respiratory Surgical History: Reports: Lung Biopsies, Pneumonectomy, Other (See Below) Other Respiratory Surgeries/Procedures: Left lower lung - nonmalignant GI Surgical History: Reports: Colonoscopy Female Surgical History: Reports: Hysterectomy Neurological Surgical History: Reports: None Musculoskeletal Surgical History: Reports: Other (See Below) Other Musculoskeletal Surgeries/Procedures:: ganglion cyst removal. Dermatological Surgical History: Reports: Skin Biopsy - Past Imaging History Past Imaging History: Reports: CAT Scan, Xray Social & Family History - Family History Family Medical History: No Pertinent Family History - Tobacco Use Tobacco Use Status *Q: Current Every Day Tobacco User Years of Tobacco use: 60 Packs/Tins Daily: 0.3 - Caffeine Use Caffeine Use: Reports: Coffee, Soda - Recreational Drug Use Recreational Drug Use: No - Living Situation & Occupation Living situation: Reports: , with Spouse Occupation: Retired ED ROS GENERAL - Review of Systems Review Of Systems: See Below Constitutional: Denies: Fever, Chills, Malaise, Weakness, Fatigue HEENT: Denies: Ear Pain, Throat Pain, Vision Change Respiratory: Reports: Cough (for awhile; she has also smoked for 50-60 years; currently 6 cigarettes daily). Denies: Shortness of Breath Cardiovascular: Denies: Chest Pain, Lightheadedness GI/Abdominal: Denies: Abdominal Pain, Constipation, Diarrhea, Nausea, Vomiting : Denies: Dysuria, Flank Pain Musculoskeletal: Denies: Neck Pain, Shoulder Pain, Arm Pain, Back Pain, Hand Pain Skin: Denies: Cyanosis, Jaundice, Mottled, Pallor, Diaphoresis Neurological: Denies: Confusion, Dizziness, Headache, Seizure, Syncope, Trouble Speaking Psychiatric: Denies: Agitation, Anxiety, Confusion ED EXAM, GENERAL - Physical Exam Exam: See Below Exam Limited By: No Limitations General Appearance: Alert, WD/WN, No Apparent Distress Eye Exam: Bilateral Eye: EOMI, Normal Inspection, PERRL Ears: Normal External Exam, Hearing Grossly Normal Nose: Normal Inspection, No Blood Throat/Mouth: Normal Inspection, Normal Lips, Normal Voice, No Airway Compromise Head: Atraumatic, Normocephalic Neck: Normal Inspection, Full Range of Motion Respiratory/Chest: No Respiratory Distress, Crackles (mild right lower lung), Rhonchi (transient, mostly with cough). No: Wheezing, Stridor Cardiovascular: Normal Peripheral Pulses, Regular Rate, Rhythm, No Edema, Systolic Murmur (mild) Peripheral Pulses: 2+: Carotid (L), Carotid (R), Radial (L), Radial (R), Posterior Tibial (L), Posterior Tibial (R) GI/Abdominal: Normal Bowel Sounds, Soft, Non-Tender, No Organomegaly, No Distention Back Exam: Normal Inspection, Full Range of Motion. No: CVA Tenderness (L), CVA Tenderness (R) Extremities: Normal Inspection, Normal Range of Motion, Other (5/5 strength symmetrically of UE/LE) Neurological: Alert, Oriented, CN II-XII Intact, Normal Cognition, No Motor/Sensory Deficits Psychiatric: Normal Affect, Normal Mood Skin Exam: Warm, Dry, Intact, Normal Color, No Rash Course - Vital Signs Last Recorded V/S: Last Vital Signs Temp 96.8 F L 08/29/21 10:35 Pulse 85 08/29/21 12:45 Resp 10 L 08/29/21 12:45 BP 112/47 L 08/29/21 12:45 Pulse Ox 94 L 08/29/21 12:45 - Orders/Labs/Meds Orders: Active Orders 24 hr Category Date Time Status Patient Status [ADT] Routine ADT 08/29/21 13:17 Ordered Dextrose 5%-Normal Saline @ 125 MLS/HR(1000ml) Med 08/29/21 13:15 Ordered Dextrose 5%-0.9% NaCl [Dextrose 5%-Normal Saline] 1,000 ml IV ASDIRECTED EKG 12 Lead [EK] Stat Ther 08/29/21 10:44 Ordered Medication Orders Dextrose/Sodium Chloride (Dextrose 5%-Normal Saline) 1,000 mls @ 125 mls/hr IV ASDIRECTED NOEL Labs: Laboratory Tests 08/29/21 08/29/21 08/29/21 Range/Units 10:34 10:40 10:44 WBC (5.00-10.00) 10^3/uL RBC (3.80-5.50) 10^6/uL Hgb (12.0-16.0) g/dL Hct (37.0-47.0) % MCV (82.0-92.0) fL MCH (27.0-31.0) pg MCHC (32.0-36.0) g/dL RDW (11.5-14.5) % Plt Count (150-400) 10^3/uL MPV (7.4-10.4) fL Immature Gran % (Auto) (0.0-5.0) % Neut % (Auto) (50.0-70.0) % Lymph % (Auto) (20.0-40.0) % Jerome % (Auto) (2.0-8.0) % Eos % (Auto) (1.0-3.0) % Baso % (Auto) (0.0-1.0) % Neut # (Auto) (2.50-7.00) 10^3/uL Lymph # (Auto) (1.00-4.00) 10^3/uL Jerome # (Auto) (0.10-0.80) 10^3/uL Eos # (Auto) (0.10-0.30) 10^3/uL Baso # (Auto) (0.00-0.10) 10^3/uL Immature Gran # (Auto) (0.00-0.50) 10^3/uL Sodium 139 (136-145) mmol/L Potassium 4.2 (3.5-5.1) mmol/L Chloride 105 (98-107) mmol/L Carbon Dioxide 17.3 L D (21.0-32.0) mmol/L Anion Gap 20.9 H (5-15) mmol/L BUN 73 H* D (7-18) mg/dL Creatinine 4.92 H D (0.51-1.17) mg/dL Est Cr Clr Drug Dosing 9.97 mL/min Estimated GFR (MDRD) 9 mL/min Glucose 60 L (70-140) mg/dL POC Glucose 85 (70-140) mg/dL Lactic Acid (0.4-2.0) mmol/L Calcium 8.1 L (8.7-10.3) mg/dL Total Bilirubin 0.4 (0.2-1.0) mg/dL AST 18 (15-37) U/L ALT 20 (14-63) U/L Alkaline Phosphatase 98 (46-116) U/L Creatine Kinase (26-276) U/L Total Protein 6.6 (6.4-8.2) g/dL Albumin 2.77 L (3.40-5.00) g/dL Specimen Type Urinvoid Urine Color Yellow (YELLOW) Urine Appearance Slightly cloudy H (CLEAR) Urine pH 5.5 (5.0-9.0) Ur Specific [place] 1.015 (1.005-1.030) Urine Protein 30 H (NEGATIVE) mg/dL Urine Glucose (UA) Negative (NEGATIVE) mg/dL Urine Ketones Negative (NEGATIVE) mg/dL Urine Occult Blood Small H (NEGATIVE) Urine Nitrite Negative (NEGATIVE) Urine Bilirubin Negative (NEGATIVE) Urine Urobilinogen 0.2 (0.2-1.0) E.U./dL Ur Leukocyte Esterase Negative (NEGATIVE) Urine RBC 0-5 (0-5) /HPF Urine WBC 5-10 H (0-5) /HPF Ur Epithelial Cells Occasional /LPF Amorphous Sediment Few (0/HPF) /HPF Urine Bacteria Few (NONE TO FEW) /HPF Granular Casts (Auto) Rare SARS CoV-2 RNA Rapid KIMBERLY (NEGATIVE) 08/29/21 08/29/21 08/29/21 Range/Units 10:44 11:20 11:25 WBC 5.81 (5.00-10.00) 10^3/uL RBC 2.93 L (3.80-5.50) 10^6/uL Hgb 9.6 L D (12.0-16.0) g/dL Hct 29.6 L (37.0-47.0) % MCV 101.0 H D (82.0-92.0) fL MCH 32.8 H (27.0-31.0) pg MCHC 32.4 (32.0-36.0) g/dL RDW 12.5 (11.5-14.5) % Plt Count 210 (150-400) 10^3/uL MPV 9.2 (7.4-10.4) fL Immature Gran % (Auto) 0.7 (0.0-5.0) % Neut % (Auto) 77.1 H (50.0-70.0) % Lymph % (Auto) 15.8 L (20.0-40.0) % Jerome % (Auto) 5.2 (2.0-8.0) % Eos % (Auto) 1.0 (1.0-3.0) % Baso % (Auto) 0.2 (0.0-1.0) % Neut # (Auto) 4.48 (2.50-7.00) 10^3/uL Lymph # (Auto) 0.92 L (1.00-4.00) 10^3/uL Jerome # (Auto) 0.30 (0.10-0.80) 10^3/uL Eos # (Auto) 0.06 L (0.10-0.30) 10^3/uL Baso # (Auto) 0.01 (0.00-0.10) 10^3/uL Immature Gran # (Auto) 0.04 (0.00-0.50) 10^3/uL Sodium (136-145) mmol/L Potassium (3.5-5.1) mmol/L Chloride (98-107) mmol/L Carbon Dioxide (21.0-32.0) mmol/L Anion Gap (5-15) mmol/L BUN (7-18) mg/dL Creatinine (0.51-1.17) mg/dL Est Cr Clr Drug Dosing mL/min Estimated GFR (MDRD) mL/min Glucose (70-140) mg/dL POC Glucose (70-140) mg/dL Lactic Acid 0.4 (0.4-2.0) mmol/L Calcium (8.7-10.3) mg/dL Total Bilirubin (0.2-1.0) mg/dL AST (15-37) U/L ALT (14-63) U/L Alkaline Phosphatase (46-116) U/L Creatine Kinase 141 (26-276) U/L Total Protein (6.4-8.2) g/dL Albumin (3.40-5.00) g/dL Specimen Type Urine Color (YELLOW) Urine Appearance (CLEAR) Urine pH (5.0-9.0) Ur Specific [place] (1.005-1.030) Urine Protein (NEGATIVE) mg/dL Urine Glucose (UA) (NEGATIVE) mg/dL Urine Ketones (NEGATIVE) mg/dL Urine Occult Blood (NEGATIVE) Urine Nitrite (NEGATIVE) Urine Bilirubin (NEGATIVE) Urine Urobilinogen (0.2-1.0) E.U./dL Ur Leukocyte Esterase (NEGATIVE) Urine RBC (0-5) /HPF Urine WBC (0-5) /HPF Ur Epithelial Cells /LPF Amorphous Sediment (0/HPF) /HPF Urine Bacteria (NONE TO FEW) /HPF Granular Casts (Auto) SARS CoV-2 RNA Rapid KIMBERLY (NEGATIVE) 08/29/21 08/29/21 08/29/21 Range/Units 11:50 12:16 12:35 WBC (5.00-10.00) 10^3/uL RBC (3.80-5.50) 10^6/uL Hgb (12.0-16.0) g/dL Hct (37.0-47.0) % MCV (82.0-92.0) fL MCH (27.0-31.0) pg MCHC (32.0-36.0) g/dL RDW (11.5-14.5) % Plt Count (150-400) 10^3/uL MPV (7.4-10.4) fL Immature Gran % (Auto) (0.0-5.0) % Neut % (Auto) (50.0-70.0) % Lymph % (Auto) (20.0-40.0) % Jerome % (Auto) (2.0-8.0) % Eos % (Auto) (1.0-3.0) % Baso % (Auto) (0.0-1.0) % Neut # (Auto) (2.50-7.00) 10^3/uL Lymph # (Auto) (1.00-4.00) 10^3/uL Jerome # (Auto) (0.10-0.80) 10^3/uL Eos # (Auto) (0.10-0.30) 10^3/uL Baso # (Auto) (0.00-0.10) 10^3/uL Immature Gran # (Auto) (0.00-0.50) 10^3/uL Sodium (136-145) mmol/L Potassium (3.5-5.1) mmol/L Chloride (98-107) mmol/L Carbon Dioxide (21.0-32.0) mmol/L Anion Gap (5-15) mmol/L BUN (7-18) mg/dL Creatinine (0.51-1.17) mg/dL Est Cr Clr Drug Dosing mL/min Estimated GFR (MDRD) mL/min Glucose (70-140) mg/dL POC Glucose 51 L 137 (70-140) mg/dL Lactic Acid (0.4-2.0) mmol/L Calcium (8.7-10.3) mg/dL Total Bilirubin (0.2-1.0) mg/dL AST (15-37) U/L ALT (14-63) U/L Alkaline Phosphatase (46-116) U/L Creatine Kinase (26-276) U/L Total Protein (6.4-8.2) g/dL Albumin (3.40-5.00) g/dL Specimen Type Urine Color (YELLOW) Urine Appearance (CLEAR) Urine pH (5.0-9.0) Ur Specific [place] (1.005-1.030) Urine Protein (NEGATIVE) mg/dL Urine Glucose (UA) (NEGATIVE) mg/dL Urine Ketones (NEGATIVE) mg/dL Urine Occult Blood (NEGATIVE) Urine Nitrite (NEGATIVE) Urine Bilirubin (NEGATIVE) Urine Urobilinogen (0.2-1.0) E.U./dL Ur Leukocyte Esterase (NEGATIVE) Urine RBC (0-5) /HPF Urine WBC (0-5) /HPF Ur Epithelial Cells /LPF Amorphous Sediment (0/HPF) /HPF Urine Bacteria (NONE TO FEW) /HPF Granular Casts (Auto) SARS CoV-2 RNA Rapid KIMBERLY Negative (NEGATIVE) 08/29/21 Range/Units 13:11 WBC (5.00-10.00) 10^3/uL RBC (3.80-5.50) 10^6/uL Hgb (12.0-16.0) g/dL Hct (37.0-47.0) % MCV (82.0-92.0) fL MCH (27.0-31.0) pg MCHC (32.0-36.0) g/dL RDW (11.5-14.5) % Plt Count (150-400) 10^3/uL MPV (7.4-10.4) fL Immature Gran % (Auto) (0.0-5.0) % Neut % (Auto) (50.0-70.0) % Lymph % (Auto) (20.0-40.0) % Jerome % (Auto) (2.0-8.0) % Eos % (Auto) (1.0-3.0) % Baso % (Auto) (0.0-1.0) % Neut # (Auto) (2.50-7.00) 10^3/uL Lymph # (Auto) (1.00-4.00) 10^3/uL Jerome # (Auto) (0.10-0.80) 10^3/uL Eos # (Auto) (0.10-0.30) 10^3/uL Baso # (Auto) (0.00-0.10) 10^3/uL Immature Gran # (Auto) (0.00-0.50) 10^3/uL Sodium (136-145) mmol/L Potassium (3.5-5.1) mmol/L Chloride (98-107) mmol/L Carbon Dioxide (21.0-32.0) mmol/L Anion Gap (5-15) mmol/L BUN (7-18) mg/dL Creatinine (0.51-1.17) mg/dL Est Cr Clr Drug Dosing mL/min Estimated GFR (MDRD) mL/min Glucose (70-140) mg/dL POC Glucose 79 (70-140) mg/dL Lactic Acid (0.4-2.0) mmol/L Calcium (8.7-10.3) mg/dL Total Bilirubin (0.2-1.0) mg/dL AST (15-37) U/L ALT (14-63) U/L Alkaline Phosphatase (46-116) U/L Creatine Kinase (26-276) U/L Total Protein (6.4-8.2) g/dL Albumin (3.40-5.00) g/dL Specimen Type Urine Color (YELLOW) Urine Appearance (CLEAR) Urine pH (5.0-9.0) Ur Specific [place] (1.005-1.030) Urine Protein (NEGATIVE) mg/dL Urine Glucose (UA) (NEGATIVE) mg/dL Urine Ketones (NEGATIVE) mg/dL Urine Occult Blood (NEGATIVE) Urine Nitrite (NEGATIVE) Urine Bilirubin (NEGATIVE) Urine Urobilinogen (0.2-1.0) E.U./dL Ur Leukocyte Esterase (NEGATIVE) Urine RBC (0-5) /HPF Urine WBC (0-5) /HPF Ur Epithelial Cells /LPF Amorphous Sediment (0/HPF) /HPF Urine Bacteria (NONE TO FEW) /HPF Granular Casts (Auto) SARS CoV-2 RNA Rapid KIMBERLY (NEGATIVE) Meds: Medications Generic Name Dose Route Start Last Admin Trade Name Freq PRN Reason Stop Dose Admin Dextrose/Sodium Chloride 1,000 mls @ 125 mls/hr 08/29/21 13:15 Dextrose 5%-Normal Saline IV ASDIRECTED NOEL Discontinued Medications Generic Name Dose Route Start Last Admin Trade Name Freq PRN Reason Stop Dose Admin Dextrose/Water 50 ml 08/29/21 11:50 08/29/21 11:59 50% Dextrose In Water 50 Ml Syringe IVPUSH 08/29/21 11:51 50 ml ONETIME ONE Administration Sodium Chloride 1,000 mls @ 999 mls/hr 08/29/21 11:48 08/29/21 12:07 Normal Saline IV 08/29/21 12:48 999 mls/hr .BOLUS ONE Administration Sodium Chloride 1,000 mls @ 999 mls/hr 08/29/21 12:01 Normal Saline IV 08/29/21 13:01 .BOLUS ONE - Re-Assessments/Exams Free Text/Narrative Re-Assessment/Exam: 08/29/21 12:15 EKG shows sinus rhythm with 1st degree AV block, rate 86. BUN and Creatinine are elevated which is new for patient. One liter of fluids is in, that EMS started, and we are giving a second liter of NS. Also gave D50 since her glucose was down to 51 again. She also ate toast and orange juice. Patient tells me her right arm and leg were weak about a week ago. No asymmetry now but will check head CT too. 08/29/21 12:35 I discussed case with Dr. Brewer and we plan to admit due to ARF, following ER workup. Waiting on head CT now. Will check Covid for admission. Glucose is 130 now. Patient has been alert throughout ER course. 08/29/21 13:14 Covid is negative. Waiting on CT report, patient doing well. Discussed with Dr. Brewer again and will transfer to floor now. 08/29/21 13:15 POC glucose is 79 now. Will add D5NS at 125ml/hr now. Second liter of NS is finishing up also. Patient stable. 08/29/21 13:[address] shows no acute intracranial findings. CXR shows no evidence off pneumonia, effusion or pneumothorax. Departure - Departure Time of Disposition: 13:46 Disposition: Admitted As Inpatient 67 Condition: Fair Clinical Impression: Hypoglycemia associated with type 2 diabetes mellitus Acute renal failure (ARF) Qualifiers: Acute renal failure type: unspecified Qualified Code(s): N17.9 - Acute kidney failure, unspecified - Discharge Information Referrals: Jacinda Rossi MD [Primary Care Provider] - Forms: ED Department Discharge Sepsis Event Note (ED) - Evaluation Sepsis Screening Result: No Definite Risk - Focused Exam Vital Signs: Vital Signs Temp Pulse Resp BP Pulse Ox 08/29/21 12:45 85 10 L 112/47 L 94 L 08/29/21 12:15 83 11 L 109/39 L 93 L 08/29/21 12:00 83 10 L 104/45 L 95 08/29/21 11:45 82 12 106/40 L 94 L 08/29/21 11:30 85 11 L 92/45 L 94 L 08/29/21 11:15 82 12 95/35 L 94 L 08/29/21 11:00 84 13 99/58 L 94 L 08/29/21 10:45 85 8 L 101/44 L 93 L 08/29/21 10:35 96.8 F L 92 10 L 107/47 L 96 - My Orders Last 24 Hours: My Active Orders 08/29/21 10:44 EKG 12 Lead [EK] Stat 08/29/21 13:15 Dextrose 5%-Normal Saline @ 125 MLS/HR(1000ml) Dextrose 5%-0.9% NaCl [Dextrose 5%-Normal Saline] 1,000 ml IV ASDIRECTED 08/29/21 13:17 Patient Status [ADT] Routine - Assessment/Plan Last 24 Hours: My Active Orders 08/29/21 10:44 EKG 12 Lead [EK] Stat 08/29/21 13:15 Dextrose 5%-Normal Saline @ 125 MLS/HR(1000ml) Dextrose 5%-0.9% NaCl [Dextrose 5%-Normal Saline] 1,000 ml IV ASDIRECTED 08/29/21 13:17 Patient Status [ADT] Routine
[2021-08-29 11:43] LABS: ANION GAP 20.9 mmol/L (5-15)
--- NOTE | 2021-08-29 11:47 | CR ---
[id number] RAD/RAD Chest PA or AP 1V EXAM: RAD Chest PA or AP 1V INDICATION: COUGH. COMPARISON: May 02, 2020. DISCUSSION/IMPRESSION: Mild cardiomegaly and central vascular congestion. Mild bibasal atelectasis left greater than right. Left upper lung scarring. No evidence of pneumonia. No pleural effusion or pneumothorax. Hunter Burgos MD 08/29/21 1143 Thank you for allowing us to participate in the care of your patient.
[2021-08-29] MEDS ORDERED: Sodium Chloride 0.9% 1,000 ML IV ONE ×2 (11:48→12:01)
[2021-08-29] MEDS ORDERED: 50% Dextrose in Water 50 ML Syringe IVPUSH ONE (11:50)
--- NOTE | 2021-08-29 13:41 | CT ---
[id number] CT/CT Head WO IV EXAM: CT Head WO IV CLINICAL DATA: RIGHT UPPER AND LOWER EXTREMITY WEAKNESS A FEW DAYS COMPARISON STUDY: 2013. FINDINGS: No intracranial hemorrhage, extra-axial fluid collection, mass, or acute ischemia. No hydrocephalus. Mild changes of chronic small vessel disease throughout both cerebral hemispheres. Calvarium intact. Paranasal sinuses and mastoid air cells are clear. IMPRESSION: No acute intracranial findings. Hunter Burgos MD 08/29/21 [id number] Thank you for allowing us to participate in the care of your patient.
[2021-08-29] MEDS: Dextrose 5%-0.9% NaCl 1,000 ML IV SCH ×2 (13:53→23:24)
[2021-08-29] MEDS ORDERED: Gabapentin 300 MG Cap PO PRN (15:04)
[2021-08-29] MEDS ORDERED: Ondansetron 4 MG Tab.DIS PO PRN (15:04)
[2021-08-29] MEDS ORDERED: RIZATRIPTAN 10 MG PO PRN (16:00)
[2021-08-29] MEDS ORDERED: atorvaSTATin 10 MG Tab PO SCH (21:00)
[2021-08-29] MEDS ORDERED: Gabapentin 300 MG Cap PO SCH (21:00)
[2021-08-29] MEDS: Propranolol 20 MG Tab PO SCH (21:20)
[2021-08-29] MEDS: Gabapentin 100 MG Cap PO SCH (21:21)
[2021-08-29] MEDS: Morphine 30 MG Tab.ER PO SCH (21:21)
[2021-08-30 07:59] LABS: ANION GAP 17.3 mmol/L (5-15)
[2021-08-30] MEDS: Propranolol 20 MG Tab PO SCH (08:16)
[2021-08-30] MEDS: Gabapentin 100 MG Cap PO SCH (08:16)
[2021-08-30] MEDS: Morphine 30 MG Tab.ER PO SCH (08:16)
[2021-08-30] MEDS ORDERED: DULoxetine 30 MG Cap PO SCH (09:00)
[2021-08-30] MEDS ORDERED: Sodium Chloride 0.9% 1,000 ML IV SCH (09:15)
--- NOTE | 2021-08-30 09:26 | PCM.PN ---
- General Info Date of Service: 08/30/21 Functional Status: Reports: Pain Controlled, Tolerating Diet, Urinating (voided unknown amount 1-2x during night per patient report. ). Denies: Ambulating - Review of Systems General: Reports: Weakness, Fatigue, Malaise HEENT: Reports: No Symptoms Pulmonary: Denies: Shortness of Breath, Pleuritic Chest Pain, Cough, Sputum, Hemoptysis, Wheezing Cardiovascular: Denies: Chest Pain, Orthopnea, PND, Edema Gastrointestinal: Reports: Other (hemmoroids). Denies: Abdominal Pain, Decreased Appetite, Difficulty Swallowing Musculoskeletal: Reports: Back Pain Skin: Denies: Pruritis, Rash Neurological: Denies: Dizziness, Difficulty Walking, Weakness Psychiatric: Denies: Confusion - Patient Data Vitals - Most Recent: Last Vital Signs Temp 97.9 F 08/30/21 06:06 Pulse 83 08/30/21 08:16 Resp 18 08/30/21 06:06 BP 115/41 L 08/30/21 08:16 Pulse Ox 95 08/30/21 06:06 Weight - Most Recent: 225 lb I&O - Last 24 Hours: Intake & Output 08/29/21 08/30/21 08/30/21 22:59 06:59 14:59 Intake Total 200 2132 Balance 200 2132 Lab Results Last 24 Hours: Laboratory Results - last 24 hr 08/29/21 08/29/21 08/29/21 Range/Units 10:34 10:40 10:44 WBC (5.00-10.00) 10^3/uL RBC (3.80-5.50) 10^6/uL Hgb (12.0-16.0) g/dL Hct (37.0-47.0) % MCV (82.0-92.0) fL MCH (27.0-31.0) pg MCHC (32.0-36.0) g/dL RDW (11.5-14.5) % Plt Count (150-400) 10^3/uL MPV (7.4-10.4) fL Immature Gran % (Auto) (0.0-5.0) % Neut % (Auto) (50.0-70.0) % Lymph % (Auto) (20.0-40.0) % [place] % (Auto) (2.0-8.0) % Eos % (Auto) (1.0-3.0) % Baso % (Auto) (0.0-1.0) % Neut # (Auto) (2.50-7.00) 10^3/uL Lymph # (Auto) (1.00-4.00) 10^3/uL [place] # (Auto) (0.10-0.80) 10^3/uL Eos # (Auto) (0.10-0.30) 10^3/uL Baso # (Auto) (0.00-0.10) 10^3/uL Immature Gran # (Auto) (0.00-0.50) 10^3/uL Sodium 139 (136-145) mmol/L Potassium 4.2 (3.5-5.1) mmol/L Chloride 105 (98-107) mmol/L Carbon Dioxide 17.3 L D (21.0-32.0) mmol/L Anion Gap 20.9 H (5-15) mmol/L BUN 73 H* D (7-18) mg/dL Creatinine 4.92 H D (0.51-1.17) mg/dL Est Cr Clr Drug Dosing 9.97 mL/min Estimated GFR (MDRD) 9 mL/min Glucose 60 L (70-140) mg/dL POC Glucose 85 (70-140) mg/dL Hemoglobin A1c (4.3-5.7) % Lactic Acid (0.4-2.0) mmol/L Calcium 8.1 L (8.7-10.3) mg/dL Phosphorus (2.6-4.7) mg/dL Magnesium (1.8-2.4) mg/dL Total Bilirubin 0.4 (0.2-1.0) mg/dL AST 18 (15-37) U/L ALT 20 (14-63) U/L Alkaline Phosphatase 98 (46-116) U/L Creatine Kinase (26-276) U/L Total Protein 6.6 (6.4-8.2) g/dL Albumin 2.77 L (3.40-5.00) g/dL Specimen Type Urinvoid Urine Color Yellow (YELLOW) Urine Appearance Slightly cloudy H (CLEAR) Urine pH 5.5 (5.0-9.0) Ur Specific [place] 1.015 (1.005-1.030) Urine Protein 30 H (NEGATIVE) mg/dL Urine Glucose (UA) Negative (NEGATIVE) mg/dL Urine Ketones Negative (NEGATIVE) mg/dL Urine Occult Blood Small H (NEGATIVE) Urine Nitrite Negative (NEGATIVE) Urine Bilirubin Negative (NEGATIVE) Urine Urobilinogen 0.2 (0.2-1.0) E.U./dL Ur Leukocyte Esterase Negative (NEGATIVE) Urine RBC 0-5 (0-5) /HPF Urine WBC 5-10 H (0-5) /HPF Ur Epithelial Cells Occasional /LPF Amorphous Sediment Few (0/HPF) /HPF Urine Bacteria Few (NONE TO FEW) /HPF Granular Casts (Auto) Rare SARS CoV-2 RNA Rapid KIMBERLY (NEGATIVE) 08/29/21 08/29/21 08/29/21 Range/Units 10:44 11:20 11:25 WBC 5.81 (5.00-10.00) 10^3/uL RBC 2.93 L (3.80-5.50) 10^6/uL Hgb 9.6 L D (12.0-16.0) g/dL Hct 29.6 L (37.0-47.0) % MCV 101.0 H D (82.0-92.0) fL MCH 32.8 H (27.0-31.0) pg MCHC 32.4 (32.0-36.0) g/dL RDW 12.5 (11.5-14.5) % Plt Count 210 (150-400) 10^3/uL MPV 9.2 (7.4-10.4) fL Immature Gran % (Auto) 0.7 (0.0-5.0) % Neut % (Auto) 77.1 H (50.0-70.0) % Lymph % (Auto) 15.8 L (20.0-40.0) % [place] % (Auto) 5.2 (2.0-8.0) % Eos % (Auto) 1.0 (1.0-3.0) % Baso % (Auto) 0.2 (0.0-1.0) % Neut # (Auto) 4.48 (2.50-7.00) 10^3/uL Lymph # (Auto) 0.92 L (1.00-4.00) 10^3/uL [place] # (Auto) 0.30 (0.10-0.80) 10^3/uL Eos # (Auto) 0.06 L (0.10-0.30) 10^3/uL Baso # (Auto) 0.01 (0.00-0.10) 10^3/uL Immature Gran # (Auto) 0.04 (0.00-0.50) 10^3/uL Sodium (136-145) mmol/L Potassium (3.5-5.1) mmol/L Chloride (98-107) mmol/L Carbon Dioxide (21.0-32.0) mmol/L Anion Gap (5-15) mmol/L BUN (7-18) mg/dL Creatinine (0.51-1.17) mg/dL Est Cr Clr Drug Dosing mL/min Estimated GFR (MDRD) mL/min Glucose (70-140) mg/dL POC Glucose (70-140) mg/dL Hemoglobin A1c (4.3-5.7) % Lactic Acid 0.4 (0.4-2.0) mmol/L Calcium (8.7-10.3) mg/dL Phosphorus (2.6-4.7) mg/dL Magnesium (1.8-2.4) mg/dL Total Bilirubin (0.2-1.0) mg/dL AST (15-37) U/L ALT (14-63) U/L Alkaline Phosphatase (46-116) U/L Creatine Kinase 141 (26-276) U/L Total Protein (6.4-8.2) g/dL Albumin (3.40-5.00) g/dL Specimen Type Urine Color (YELLOW) Urine Appearance (CLEAR) Urine pH (5.0-9.0) Ur Specific [place] (1.005-1.030) Urine Protein (NEGATIVE) mg/dL Urine Glucose (UA) (NEGATIVE) mg/dL Urine Ketones (NEGATIVE) mg/dL Urine Occult Blood (NEGATIVE) Urine Nitrite (NEGATIVE) Urine Bilirubin (NEGATIVE) Urine Urobilinogen (0.2-1.0) E.U./dL Ur Leukocyte Esterase (NEGATIVE) Urine RBC (0-5) /HPF Urine WBC (0-5) /HPF Ur Epithelial Cells /LPF Amorphous Sediment (0/HPF) /HPF Urine Bacteria (NONE TO FEW) /HPF Granular Casts (Auto) SARS CoV-2 RNA Rapid KIMBERLY (NEGATIVE) 08/29/21 08/29/21 08/29/21 Range/Units 11:50 12:16 12:35 WBC (5.00-10.00) 10^3/uL RBC (3.80-5.50) 10^6/uL Hgb (12.0-16.0) g/dL Hct (37.0-47.0) % MCV (82.0-92.0) fL MCH (27.0-31.0) pg MCHC (32.0-36.0) g/dL RDW (11.5-14.5) % Plt Count (150-400) 10^3/uL MPV (7.4-10.4) fL Immature Gran % (Auto) (0.0-5.0) % Neut % (Auto) (50.0-70.0) % Lymph % (Auto) (20.0-40.0) % [place] % (Auto) (2.0-8.0) % Eos % (Auto) (1.0-3.0) % Baso % (Auto) (0.0-1.0) % Neut # (Auto) (2.50-7.00) 10^3/uL Lymph # (Auto) (1.00-4.00) 10^3/uL [place] # (Auto) (0.10-0.80) 10^3/uL Eos # (Auto) (0.10-0.30) 10^3/uL Baso # (Auto) (0.00-0.10) 10^3/uL Immature Gran # (Auto) (0.00-0.50) 10^3/uL Sodium (136-145) mmol/L Potassium (3.5-5.1) mmol/L Chloride (98-107) mmol/L Carbon Dioxide (21.0-32.0) mmol/L Anion Gap (5-15) mmol/L BUN (7-18) mg/dL Creatinine (0.51-1.17) mg/dL Est Cr Clr Drug Dosing mL/min Estimated GFR (MDRD) mL/min Glucose (70-140) mg/dL POC Glucose 51 L 137 (70-140) mg/dL Hemoglobin A1c (4.3-5.7) % Lactic Acid (0.4-2.0) mmol/L Calcium (8.7-10.3) mg/dL Phosphorus (2.6-4.7) mg/dL Magnesium (1.8-2.4) mg/dL Total Bilirubin (0.2-1.0) mg/dL AST (15-37) U/L ALT (14-63) U/L Alkaline Phosphatase (46-116) U/L Creatine Kinase (26-276) U/L Total Protein (6.4-8.2) g/dL Albumin (3.40-5.00) g/dL Specimen Type Urine Color (YELLOW) Urine Appearance (CLEAR) Urine pH (5.0-9.0) Ur Specific [place] (1.005-1.030) Urine Protein (NEGATIVE) mg/dL Urine Glucose (UA) (NEGATIVE) mg/dL Urine Ketones (NEGATIVE) mg/dL Urine Occult Blood (NEGATIVE) Urine Nitrite (NEGATIVE) Urine Bilirubin (NEGATIVE) Urine Urobilinogen (0.2-1.0) E.U./dL Ur Leukocyte Esterase (NEGATIVE) Urine RBC (0-5) /HPF Urine WBC (0-5) /HPF Ur Epithelial Cells /LPF Amorphous Sediment (0/HPF) /HPF Urine Bacteria (NONE TO FEW) /HPF Granular Casts (Auto) SARS CoV-2 RNA Rapid KIMBERLY Negative (NEGATIVE) 08/29/21 08/29/21 08/29/21 Range/Units 13:11 14:01 14:47 WBC (5.00-10.00) 10^3/uL RBC (3.80-5.50) 10^6/uL Hgb (12.0-16.0) g/dL Hct (37.0-47.0) % MCV (82.0-92.0) fL MCH (27.0-31.0) pg MCHC (32.0-36.0) g/dL RDW (11.5-14.5) % Plt Count (150-400) 10^3/uL MPV (7.4-10.4) fL Immature Gran % (Auto) (0.0-5.0) % Neut % (Auto) (50.0-70.0) % Lymph % (Auto) (20.0-40.0) % [place] % (Auto) (2.0-8.0) % Eos % (Auto) (1.0-3.0) % Baso % (Auto) (0.0-1.0) % Neut # (Auto) (2.50-7.00) 10^3/uL Lymph # (Auto) (1.00-4.00) 10^3/uL [place] # (Auto) (0.10-0.80) 10^3/uL Eos # (Auto) (0.10-0.30) 10^3/uL Baso # (Auto) (0.00-0.10) 10^3/uL Immature Gran # (Auto) (0.00-0.50) 10^3/uL Sodium (136-145) mmol/L Potassium (3.5-5.1) mmol/L Chloride (98-107) mmol/L Carbon Dioxide (21.0-32.0) mmol/L Anion Gap (5-15) mmol/L BUN (7-18) mg/dL Creatinine (0.51-1.17) mg/dL Est Cr Clr Drug Dosing mL/min Estimated GFR (MDRD) mL/min Glucose (70-140) mg/dL POC Glucose 79 66 L 69 L (70-140) mg/dL Hemoglobin A1c (4.3-5.7) % Lactic Acid (0.4-2.0) mmol/L Calcium (8.7-10.3) mg/dL Phosphorus (2.6-4.7) mg/dL Magnesium (1.8-2.4) mg/dL Total Bilirubin (0.2-1.0) mg/dL AST (15-37) U/L ALT (14-63) U/L Alkaline Phosphatase (46-116) U/L Creatine Kinase (26-276) U/L Total Protein (6.4-8.2) g/dL Albumin (3.40-5.00) g/dL Specimen Type Urine Color (YELLOW) Urine Appearance (CLEAR) Urine pH (5.0-9.0) Ur Specific [place] (1.005-1.030) Urine Protein (NEGATIVE) mg/dL Urine Glucose (UA) (NEGATIVE) mg/dL Urine Ketones (NEGATIVE) mg/dL Urine Occult Blood (NEGATIVE) Urine Nitrite (NEGATIVE) Urine Bilirubin (NEGATIVE) Urine Urobilinogen (0.2-1.0) E.U./dL Ur Leukocyte Esterase (NEGATIVE) Urine RBC (0-5) /HPF Urine WBC (0-5) /HPF Ur Epithelial Cells /LPF Amorphous Sediment (0/HPF) /HPF Urine Bacteria (NONE TO FEW) /HPF Granular Casts (Auto) SARS CoV-2 RNA Rapid KIMBERLY (NEGATIVE) 08/29/21 08/29/21 08/29/21 Range/Units 15:58 17:40 18:00 WBC (5.00-10.00) 10^3/uL RBC (3.80-5.50) 10^6/uL Hgb (12.0-16.0) g/dL Hct (37.0-47.0) % MCV (82.0-92.0) fL MCH (27.0-31.0) pg MCHC (32.0-36.0) g/dL RDW (11.5-14.5) % Plt Count (150-400) 10^3/uL MPV (7.4-10.4) fL Immature Gran % (Auto) (0.0-5.0) % Neut % (Auto) (50.0-70.0) % Lymph % (Auto) (20.0-40.0) % [place] % (Auto) (2.0-8.0) % Eos % (Auto) (1.0-3.0) % Baso % (Auto) (0.0-1.0) % Neut # (Auto) (2.50-7.00) 10^3/uL Lymph # (Auto) (1.00-4.00) 10^3/uL [place] # (Auto) (0.10-0.80) 10^3/uL Eos # (Auto) (0.10-0.30) 10^3/uL Baso # (Auto) (0.00-0.10) 10^3/uL Immature Gran # (Auto) (0.00-0.50) 10^3/uL Sodium (136-145) mmol/L Potassium (3.5-5.1) mmol/L Chloride (98-107) mmol/L Carbon Dioxide (21.0-32.0) mmol/L Anion Gap (5-15) mmol/L BUN 73 H* (7-18) mg/dL Creatinine 4.76 H (0.51-1.17) mg/dL Est Cr Clr Drug Dosing 10.30 mL/min Estimated GFR (MDRD) 9 mL/min Glucose (70-140) mg/dL POC Glucose 66 L 77 (70-140) mg/dL Hemoglobin A1c (4.3-5.7) % Lactic Acid (0.4-2.0) mmol/L Calcium (8.7-10.3) mg/dL Phosphorus (2.6-4.7) mg/dL Magnesium (1.8-2.4) mg/dL Total Bilirubin (0.2-1.0) mg/dL AST (15-37) U/L ALT (14-63) U/L Alkaline Phosphatase (46-116) U/L Creatine Kinase (26-276) U/L Total Protein (6.4-8.2) g/dL Albumin (3.40-5.00) g/dL Specimen Type Urine Color (YELLOW) Urine Appearance (CLEAR) Urine pH (5.0-9.0) Ur Specific [place] (1.005-1.030) Urine Protein (NEGATIVE) mg/dL Urine Glucose (UA) (NEGATIVE) mg/dL Urine Ketones (NEGATIVE) mg/dL Urine Occult Blood (NEGATIVE) Urine Nitrite (NEGATIVE) Urine Bilirubin (NEGATIVE) Urine Urobilinogen (0.2-1.0) E.U./dL Ur Leukocyte Esterase (NEGATIVE) Urine RBC (0-5) /HPF Urine WBC (0-5) /HPF Ur Epithelial Cells /LPF Amorphous Sediment (0/HPF) /HPF Urine Bacteria (NONE TO FEW) /HPF Granular Casts (Auto) SARS CoV-2 RNA Rapid KIMBERLY (NEGATIVE) 08/29/21 08/29/21 08/29/21 Range/Units 18:00 18:00 19:19 WBC (5.00-10.00) 10^3/uL RBC (3.80-5.50) 10^6/uL Hgb 9.1 L (12.0-16.0) g/dL Hct 26.6 L (37.0-47.0) % MCV (82.0-92.0) fL MCH (27.0-31.0) pg MCHC (32.0-36.0) g/dL RDW (11.5-14.5) % Plt Count (150-400) 10^3/uL MPV (7.4-10.4) fL Immature Gran % (Auto) (0.0-5.0) % Neut % (Auto) (50.0-70.0) % Lymph % (Auto) (20.0-40.0) % [place] % (Auto) (2.0-8.0) % Eos % (Auto) (1.0-3.0) % Baso % (Auto) (0.0-1.0) % Neut # (Auto) (2.50-7.00) 10^3/uL Lymph # (Auto) (1.00-4.00) 10^3/uL [place] # (Auto) (0.10-0.80) 10^3/uL Eos # (Auto) (0.10-0.30) 10^3/uL Baso # (Auto) (0.00-0.10) 10^3/uL Immature Gran # (Auto) (0.00-0.50) 10^3/uL Sodium (136-145) mmol/L Potassium (3.5-5.1) mmol/L Chloride (98-107) mmol/L Carbon Dioxide (21.0-32.0) mmol/L Anion Gap (5-15) mmol/L BUN (7-18) mg/dL Creatinine (0.51-1.17) mg/dL Est Cr Clr Drug Dosing mL/min Estimated GFR (MDRD) mL/min Glucose (70-140) mg/dL POC Glucose 91 (70-140) mg/dL Hemoglobin A1c 6.0 H (4.3-5.7) % Lactic Acid (0.4-2.0) mmol/L Calcium (8.7-10.3) mg/dL Phosphorus (2.6-4.7) mg/dL Magnesium (1.8-2.4) mg/dL Total Bilirubin (0.2-1.0) mg/dL AST (15-37) U/L ALT (14-63) U/L Alkaline Phosphatase (46-116) U/L Creatine Kinase (26-276) U/L Total Protein (6.4-8.2) g/dL Albumin (3.40-5.00) g/dL Specimen Type Urine Color (YELLOW) Urine Appearance (CLEAR) Urine pH (5.0-9.0) Ur Specific [place] (1.005-1.030) Urine Protein (NEGATIVE) mg/dL Urine Glucose (UA) (NEGATIVE) mg/dL Urine Ketones (NEGATIVE) mg/dL Urine Occult Blood (NEGATIVE) Urine Nitrite (NEGATIVE) Urine Bilirubin (NEGATIVE) Urine Urobilinogen (0.2-1.0) E.U./dL Ur Leukocyte Esterase (NEGATIVE) Urine RBC (0-5) /HPF Urine WBC (0-5) /HPF Ur Epithelial Cells /LPF Amorphous Sediment (0/HPF) /HPF Urine Bacteria (NONE TO FEW) /HPF Granular Casts (Auto) SARS CoV-2 RNA Rapid KIMBERLY (NEGATIVE) 08/29/21 08/30/21 08/30/21 Range/Units 21:16 05:36 07:05 WBC 6.30 (5.00-10.00) 10^3/uL RBC 2.82 L (3.80-5.50) 10^6/uL Hgb 9.3 L (12.0-16.0) g/dL Hct 27.9 L (37.0-47.0) % MCV 98.9 H (82.0-92.0) fL MCH 33.0 H (27.0-31.0) pg MCHC 33.3 (32.0-36.0) g/dL RDW 12.6 (11.5-14.5) % Plt Count 207 (150-400) 10^3/uL MPV 9.4 (7.4-10.4) fL Immature Gran % (Auto) 0.5 (0.0-5.0) % Neut % (Auto) 64.9 (50.0-70.0) % Lymph % (Auto) 21.9 (20.0-40.0) % [place] % (Auto) 8.7 H (2.0-8.0) % Eos % (Auto) 3.7 H (1.0-3.0) % Baso % (Auto) 0.3 (0.0-1.0) % Neut # (Auto) 4.09 (2.50-7.00) 10^3/uL Lymph # (Auto) 1.38 (1.00-4.00) 10^3/uL [place] # (Auto) 0.55 (0.10-0.80) 10^3/uL Eos # (Auto) 0.23 (0.10-0.30) 10^3/uL Baso # (Auto) 0.02 (0.00-0.10) 10^3/uL Immature Gran # (Auto) 0.03 (0.00-0.50) 10^3/uL Sodium (136-145) mmol/L Potassium (3.5-5.1) mmol/L Chloride (98-107) mmol/L Carbon Dioxide (21.0-32.0) mmol/L Anion Gap (5-15) mmol/L BUN (7-18) mg/dL Creatinine (0.51-1.17) mg/dL Est Cr Clr Drug Dosing mL/min Estimated GFR (MDRD) mL/min Glucose (70-140) mg/dL POC Glucose 111 117 (70-140) mg/dL Hemoglobin A1c (4.3-5.7) % Lactic Acid (0.4-2.0) mmol/L Calcium (8.7-10.3) mg/dL Phosphorus (2.6-4.7) mg/dL Magnesium (1.8-2.4) mg/dL Total Bilirubin (0.2-1.0) mg/dL AST (15-37) U/L ALT (14-63) U/L Alkaline Phosphatase (46-116) U/L Creatine Kinase (26-276) U/L Total Protein (6.4-8.2) g/dL Albumin (3.40-5.00) g/dL Specimen Type Urine Color (YELLOW) Urine Appearance (CLEAR) Urine pH (5.0-9.0) Ur Specific [place] (1.005-1.030) Urine Protein (NEGATIVE) mg/dL Urine Glucose (UA) (NEGATIVE) mg/dL Urine Ketones (NEGATIVE) mg/dL Urine Occult Blood (NEGATIVE) Urine Nitrite (NEGATIVE) Urine Bilirubin (NEGATIVE) Urine Urobilinogen (0.2-1.0) E.U./dL Ur Leukocyte Esterase (NEGATIVE) Urine RBC (0-5) /HPF Urine WBC (0-5) /HPF Ur Epithelial Cells /LPF Amorphous Sediment (0/HPF) /HPF Urine Bacteria (NONE TO FEW) /HPF Granular Casts (Auto) SARS CoV-2 RNA Rapid KIMBERLY (NEGATIVE) 08/30/21 08/30/21 Range/Units 07:05 07:32 WBC (5.00-10.00) 10^3/uL RBC (3.80-5.50) 10^6/uL Hgb (12.0-16.0) g/dL Hct (37.0-47.0) % MCV (82.0-92.0) fL MCH (27.0-31.0) pg MCHC (32.0-36.0) g/dL RDW (11.5-14.5) % Plt Count (150-400) 10^3/uL MPV (7.4-10.4) fL Immature Gran % (Auto) (0.0-5.0) % Neut % (Auto) (50.0-70.0) % Lymph % (Auto) (20.0-40.0) % [place] % (Auto) (2.0-8.0) % Eos % (Auto) (1.0-3.0) % Baso % (Auto) (0.0-1.0) % Neut # (Auto) (2.50-7.00) 10^3/uL Lymph # (Auto) (1.00-4.00) 10^3/uL [place] # (Auto) (0.10-0.80) 10^3/uL Eos # (Auto) (0.10-0.30) 10^3/uL Baso # (Auto) (0.00-0.10) 10^3/uL Immature Gran # (Auto) (0.00-0.50) 10^3/uL Sodium 142 (136-145) mmol/L Potassium 4.2 (3.5-5.1) mmol/L Chloride 109 H (98-107) mmol/L Carbon Dioxide 19.9 L (21.0-32.0) mmol/L Anion Gap 17.3 H (5-15) mmol/L BUN 67 H* (7-18) mg/dL Creatinine 4.73 H (0.51-1.17) mg/dL Est Cr Clr Drug Dosing 10.37 mL/min Estimated GFR (MDRD) 9 mL/min Glucose 129 (70-140) mg/dL POC Glucose 129 (70-140) mg/dL Hemoglobin A1c (4.3-5.7) % Lactic Acid (0.4-2.0) mmol/L Calcium 7.4 L (8.7-10.3) mg/dL Phosphorus 9.0 H* (2.6-4.7) mg/dL Magnesium 2.0 (1.8-2.4) mg/dL Total Bilirubin (0.2-1.0) mg/dL AST (15-37) U/L ALT (14-63) U/L Alkaline Phosphatase (46-116) U/L Creatine Kinase (26-276) U/L Total Protein (6.4-8.2) g/dL Albumin (3.40-5.00) g/dL Specimen Type Urine Color (YELLOW) Urine Appearance (CLEAR) Urine pH (5.0-9.0) Ur Specific [place] (1.005-1.030) Urine Protein (NEGATIVE) mg/dL Urine Glucose (UA) (NEGATIVE) mg/dL Urine Ketones (NEGATIVE) mg/dL Urine Occult Blood (NEGATIVE) Urine Nitrite (NEGATIVE) Urine Bilirubin (NEGATIVE) Urine Urobilinogen (0.2-1.0) E.U./dL Ur Leukocyte Esterase (NEGATIVE) Urine RBC (0-5) /HPF Urine WBC (0-5) /HPF Ur Epithelial Cells /LPF Amorphous Sediment (0/HPF) /HPF Urine Bacteria (NONE TO FEW) /HPF Granular Casts (Auto) SARS CoV-2 RNA Rapid KIMBERLY (NEGATIVE) Med Orders - Current: Current Medications Atorvastatin Calcium (Atorvastatin 10 Mg Tab) 10 mg PO BEDTIME [facility] Last Admin: 08/29/21 21:21 Dose: 10 mg Documented by: Duloxetine HCl (Duloxetine 30 Mg Cap) 60 mg PO DAILY [facility] Last Admin: 08/30/21 08:16 Dose: 60 mg Documented by: Gabapentin (Gabapentin 100 Mg Cap) 100 mg PO TID [facility] Last Admin: 08/30/21 08:16 Dose: 100 mg Documented by: Dextrose/Sodium Chloride (Dextrose 5%-Normal Saline) 1,000 mls @ 125 mls/hr IV ASDIRECTED [facility] Last Admin: 08/29/21 23:24 Dose: 125 mls/hr Documented by: Sodium Chloride (Normal Saline) 1,000 mls @ 125 mls/hr IV ASDIRECTED [facility] Morphine Sulfate (Morphine 30 Mg Tab.Er) 30 mg PO TID [facility] Last Admin: 08/30/21 08:16 Dose: 30 mg Documented by: Ondansetron HCl (Ondansetron 4 Mg Tab.Dis) 4 mg PO Q6H PRN PRN Reason: Vomiting Ptom- Rizatriptan (10mg Tablet Odt) 0 each PO ASDIRECTED PRN PRN Reason: Headache Propranolol HCl (Propranolol 20 Mg Tab) 20 mg PO BID [facility] Last Admin: 08/30/21 08:16 Dose: 20 mg Documented by: Discontinued Medications Dextrose/Water (50% Dextrose In Water 50 Ml Syringe) 50 ml IVPUSH ONETIME ONE Stop: 08/29/21 11:51 Last Admin: 08/29/21 11:59 Dose: 50 ml Documented by: Gabapentin (Gabapentin 300 Mg Cap) 900 mg PO TID [facility] Gabapentin (Gabapentin 300 Mg Cap) 600 mg PO BEDTIME PRN PRN Reason: Pain Sodium Chloride (Normal Saline) 1,000 mls @ 999 mls/hr IV .BOLUS ONE Stop: 08/29/21 12:48 Last Admin: 08/29/21 12:07 Dose: 999 mls/hr Documented by: Sodium Chloride (Normal Saline) 1,000 mls @ 999 mls/hr IV .BOLUS ONE Stop: 08/29/21 13:01 Last Admin: 08/29/21 13:53 Dose: Not Given Documented by: - Exam Quality Assessment: No: Supplemental Oxygen General: Alert, Oriented Neck: Supple Lungs: Clear to Auscultation, Normal Respiratory Effort Cardiovascular: Regular Rate, Regular Rhythm GI/Abdominal Exam: Normal Bowel Sounds, Soft, Non-Tender, No Organomegaly, No Distention, No Mass. No: Guarding, Rigid, Rebound, Mass Extremities: No Pedal Edema Peripheral Pulses: 2+: Radial (L), 3+: Radial (R) Skin: Dry, Intact Neurological: Normal Speech, Cranial Nerves Intact (grossly) Psy/Mental Status: Labile Mood - Patient Data Lab Results Last 24 hrs: Laboratory Results - last 24 hr 08/29/21 08/29/21 08/29/21 Range/Units 10:34 10:40 10:44 WBC (5.00-10.00) 10^3/uL RBC (3.80-5.50) 10^6/uL Hgb (12.0-16.0) g/dL Hct (37.0-47.0) % MCV (82.0-92.0) fL MCH (27.0-31.0) pg MCHC (32.0-36.0) g/dL RDW (11.5-14.5) % Plt Count (150-400) 10^3/uL MPV (7.4-10.4) fL Immature Gran % (Auto) (0.0-5.0) % Neut % (Auto) (50.0-70.0) % Lymph % (Auto) (20.0-40.0) % [place] % (Auto) (2.0-8.0) % Eos % (Auto) (1.0-3.0) % Baso % (Auto) (0.0-1.0) % Neut # (Auto) (2.50-7.00) 10^3/uL Lymph # (Auto) (1.00-4.00) 10^3/uL [place] # (Auto) (0.10-0.80) 10^3/uL Eos # (Auto) (0.10-0.30) 10^3/uL Baso # (Auto) (0.00-0.10) 10^3/uL Immature Gran # (Auto) (0.00-0.50) 10^3/uL Sodium 139 (136-145) mmol/L Potassium 4.2 (3.5-5.1) mmol/L Chloride 105 (98-107) mmol/L Carbon Dioxide 17.3 L D (21.0-32.0) mmol/L Anion Gap 20.9 H (5-15) mmol/L BUN 73 H* D (7-18) mg/dL Creatinine 4.92 H D (0.51-1.17) mg/dL Est Cr Clr Drug Dosing 9.97 mL/min Estimated GFR (MDRD) 9 mL/min Glucose 60 L (70-140) mg/dL POC Glucose 85 (70-140) mg/dL Hemoglobin A1c (4.3-5.7) % Lactic Acid (0.4-2.0) mmol/L Calcium 8.1 L (8.7-10.3) mg/dL Phosphorus (2.6-4.7) mg/dL Magnesium (1.8-2.4) mg/dL Total Bilirubin 0.4 (0.2-1.0) mg/dL AST 18 (15-37) U/L ALT 20 (14-63) U/L Alkaline Phosphatase 98 (46-116) U/L Creatine Kinase (26-276) U/L Total Protein 6.6 (6.4-8.2) g/dL Albumin 2.77 L (3.40-5.00) g/dL Specimen Type Urinvoid Urine Color Yellow (YELLOW) Urine Appearance Slightly cloudy H (CLEAR) Urine pH 5.5 (5.0-9.0) Ur Specific [place] 1.015 (1.005-1.030) Urine Protein 30 H (NEGATIVE) mg/dL Urine Glucose (UA) Negative (NEGATIVE) mg/dL Urine Ketones Negative (NEGATIVE) mg/dL Urine Occult Blood Small H (NEGATIVE) Urine Nitrite Negative (NEGATIVE) Urine Bilirubin Negative (NEGATIVE) Urine Urobilinogen 0.2 (0.2-1.0) E.U./dL Ur Leukocyte Esterase Negative (NEGATIVE) Urine RBC 0-5 (0-5) /HPF Urine WBC 5-10 H (0-5) /HPF Ur Epithelial Cells Occasional /LPF Amorphous Sediment Few (0/HPF) /HPF Urine Bacteria Few (NONE TO FEW) /HPF Granular Casts (Auto) Rare SARS CoV-2 RNA Rapid [facility]IMBER[facility] (NEGATIVE) 08/29/21 08/29/21 08/29/21 Range/Units 10:44 11:20 11:25 WBC 5.81 (5.00-10.00) 10^3/uL RBC 2.93 L (3.80-5.50) 10^6/uL Hgb 9.6 L D (12.0-16.0) g/dL Hct 29.6 L (37.0-47.0) % MCV 101.0 H D (82.0-92.0) fL MCH 32.8 H (27.0-31.0) pg MCHC 32.4 (32.0-36.0) g/dL RDW 12.5 (11.5-14.5) % Plt Count 210 (150-400) 10^3/uL MPV 9.2 (7.4-10.4) fL Immature Gran % (Auto) 0.7 (0.0-5.0) % Neut % (Auto) 77.1 H (50.0-70.0) % Lymph % (Auto) 15.8 L (20.0-40.0) % [place] % (Auto) 5.2 (2.0-8.0) % Eos % (Auto) 1.0 (1.0-3.0) % Baso % (Auto) 0.2 (0.0-1.0) % Neut # (Auto) 4.48 (2.50-7.00) 10^3/uL Lymph # (Auto) 0.92 L (1.00-4.00) 10^3/uL [place] # (Auto) 0.30 (0.10-0.80) 10^3/uL Eos # (Auto) 0.06 L (0.10-0.30) 10^3/uL Baso # (Auto) 0.01 (0.00-0.10) 10^3/uL Immature Gran # (Auto) 0.04 (0.00-0.50) 10^3/uL Sodium (136-145) mmol/L Potassium (3.5-5.1) mmol/L Chloride (98-107) mmol/L Carbon Dioxide (21.0-32.0) mmol/L Anion Gap (5-15) mmol/L BUN (7-18) mg/dL Creatinine (0.51-1.17) mg/dL Est Cr Clr Drug Dosing mL/min Estimated GFR (MDRD) mL/min Glucose (70-140) mg/dL POC Glucose (70-140) mg/dL Hemoglobin A1c (4.3-5.7) % Lactic Acid 0.4 (0.4-2.0) mmol/L Calcium (8.7-10.3) mg/dL Phosphorus (2.6-4.7) mg/dL Magnesium (1.8-2.4) mg/dL Total Bilirubin (0.2-1.0) mg/dL AST (15-37) U/L ALT (14-63) U/L Alkaline Phosphatase (46-116) U/L Creatine Kinase 141 (26-276) U/L Total Protein (6.4-8.2) g/dL Albumin (3.40-5.00) g/dL Specimen Type Urine Color (YELLOW) Urine Appearance (CLEAR) Urine pH (5.0-9.0) Ur Specific [place] (1.005-1.030) Urine Protein (NEGATIVE) mg/dL Urine Glucose (UA) (NEGATIVE) mg/dL Urine Ketones (NEGATIVE) mg/dL Urine Occult Blood (NEGATIVE) Urine Nitrite (NEGATIVE) Urine Bilirubin (NEGATIVE) Urine Urobilinogen (0.2-1.0) E.U./dL Ur Leukocyte Esterase (NEGATIVE) Urine RBC (0-5) /HPF Urine WBC (0-5) /HPF Ur Epithelial Cells /LPF Amorphous Sediment (0/HPF) /HPF Urine Bacteria (NONE TO FEW) /HPF Granular Casts (Auto) SARS CoV-2 RNA Rapid [facility]IM[facility] (NEGATIVE) 08/29/21 08/29/21 08/29/21 Range/Units 11:50 12:16 12:35 WBC (5.00-10.00) 10^3/uL RBC (3.80-5.50) 10^6/uL Hgb (12.0-16.0) g/dL Hct (37.0-47.0) % MCV (82.0-92.0) fL MCH (27.0-31.0) pg MCHC (32.0-36.0) g/dL RDW (11.5-14.5) % Plt Count (150-400) 10^3/uL MPV (7.4-10.4) fL Immature Gran % (Auto) (0.0-5.0) % Neut % (Auto) (50.0-70.0) % Lymph % (Auto) (20.0-40.0) % [place] % (Auto) (2.0-8.0) % Eos % (Auto) (1.0-3.0) % Baso % (Auto) (0.0-1.0) % Neut # (Auto) (2.50-7.00) 10^3/uL Lymph # (Auto) (1.00-4.00) 10^3/uL [place] # (Auto) (0.10-0.80) 10^3/uL Eos # (Auto) (0.10-0.30) 10^3/uL Baso # (Auto) (0.00-0.10) 10^3/uL Immature Gran # (Auto) (0.00-0.50) 10^3/uL Sodium (136-145) mmol/L Potassium (3.5-5.1) mmol/L Chloride (98-107) mmol/L Carbon Dioxide (21.0-32.0) mmol/L Anion Gap (5-15) mmol/L BUN (7-18) mg/dL Creatinine (0.51-1.17) mg/dL Est Cr Clr Drug Dosing mL/min Estimated GFR (MDRD) mL/min Glucose (70-140) mg/dL POC Glucose 51 L 137 (70-140) mg/dL Hemoglobin A1c (4.3-5.7) % Lactic Acid (0.4-2.0) mmol/L Calcium (8.7-10.3) mg/dL Phosphorus (2.6-4.7) mg/dL Magnesium (1.8-2.4) mg/dL Total Bilirubin (0.2-1.0) mg/dL AST (15-37) U/L ALT (14-63) U/L Alkaline Phosphatase (46-116) U/L Creatine Kinase (26-276) U/L Total Protein (6.4-8.2) g/dL Albumin (3.40-5.00) g/dL Specimen Type Urine Color (YELLOW) Urine Appearance (CLEAR) Urine pH (5.0-9.0) Ur Specific [place] (1.005-1.030) Urine Protein (NEGATIVE) mg/dL Urine Glucose (UA) (NEGATIVE) mg/dL Urine Ketones (NEGATIVE) mg/dL Urine Occult Blood (NEGATIVE) Urine Nitrite (NEGATIVE) Urine Bilirubin (NEGATIVE) Urine Urobilinogen (0.2-1.0) E.U./dL Ur Leukocyte Esterase (NEGATIVE) Urine RBC (0-5) /HPF Urine WBC (0-5) /HPF Ur Epithelial Cells /LPF Amorphous Sediment (0/HPF) /HPF Urine Bacteria (NONE TO FEW) /HPF Granular Casts (Auto) SARS CoV-2 RNA Rapid KIMBERLY Negative (NEGATIVE) 08/29/21 08/29/21 08/29/21 Range/Units 13:11 14:01 14:47 WBC (5.00-10.00) 10^3/uL RBC (3.80-5.50) 10^6/uL Hgb (12.0-16.0) g/dL Hct (37.0-47.0) % MCV (82.0-92.0) fL MCH (27.0-31.0) pg MCHC (32.0-36.0) g/dL RDW (11.5-14.5) % Plt Count (150-400) 10^3/uL MPV (7.4-10.4) fL Immature Gran % (Auto) (0.0-5.0) % Neut % (Auto) (50.0-70.0) % Lymph % (Auto) (20.0-40.0) % [place] % (Auto) (2.0-8.0) % Eos % (Auto) (1.0-3.0) % Baso % (Auto) (0.0-1.0) % Neut # (Auto) (2.50-7.00) 10^3/uL Lymph # (Auto) (1.00-4.00) 10^3/uL [place] # (Auto) (0.10-0.80) 10^3/uL Eos # (Auto) (0.10-0.30) 10^3/uL Baso # (Auto) (0.00-0.10) 10^3/uL Immature Gran # (Auto) (0.00-0.50) 10^3/uL Sodium (136-145) mmol/L Potassium (3.5-5.1) mmol/L Chloride (98-107) mmol/L Carbon Dioxide (21.0-32.0) mmol/L Anion Gap (5-15) mmol/L BUN (7-18) mg/dL Creatinine (0.51-1.17) mg/dL Est Cr Clr Drug Dosing mL/min Estimated GFR (MDRD) mL/min Glucose (70-140) mg/dL POC Glucose 79 66 L 69 L (70-140) mg/dL Hemoglobin A1c (4.3-5.7) % Lactic Acid (0.4-2.0) mmol/L Calcium (8.7-10.3) mg/dL Phosphorus (2.6-4.7) mg/dL Magnesium (1.8-2.4) mg/dL Total Bilirubin (0.2-1.0) mg/dL AST (15-37) U/L ALT (14-63) U/L Alkaline Phosphatase (46-116) U/L Creatine Kinase (26-276) U/L Total Protein (6.4-8.2) g/dL Albumin (3.40-5.00) g/dL Specimen Type Urine Color (YELLOW) Urine Appearance (CLEAR) Urine pH (5.0-9.0) Ur Specific [place] (1.005-1.030) Urine Protein (NEGATIVE) mg/dL Urine Glucose (UA) (NEGATIVE) mg/dL Urine Ketones (NEGATIVE) mg/dL Urine Occult Blood (NEGATIVE) Urine Nitrite (NEGATIVE) Urine Bilirubin (NEGATIVE) Urine Urobilinogen (0.2-1.0) E.U./dL Ur Leukocyte Esterase (NEGATIVE) Urine RBC (0-5) /HPF Urine WBC (0-5) /HPF Ur Epithelial Cells /LPF Amorphous Sediment (0/HPF) /HPF Urine Bacteria (NONE TO FEW) /HPF Granular Casts (Auto) SARS CoV-2 RNA Rapid KIMBERLY (NEGATIVE) 08/29/21 08/29/21 08/29/21 Range/Units 15:58 17:40 18:00 WBC (5.00-10.00) 10^3/uL RBC (3.80-5.50) 10^6/uL Hgb (12.0-16.0) g/dL Hct (37.0-47.0) % MCV (82.0-92.0) fL MCH (27.0-31.0) pg MCHC (32.0-36.0) g/dL RDW (11.5-14.5) % Plt Count (150-400) 10^3/uL MPV (7.4-10.4) fL Immature Gran % (Auto) (0.0-5.0) % Neut % (Auto) (50.0-70.0) % Lymph % (Auto) (20.0-40.0) % [place] % (Auto) (2.0-8.0) % Eos % (Auto) (1.0-3.0) % Baso % (Auto) (0.0-1.0) % Neut # (Auto) (2.50-7.00) 10^3/uL Lymph # (Auto) (1.00-4.00) 10^3/uL [place] # (Auto) (0.10-0.80) 10^3/uL Eos # (Auto) (0.10-0.30) 10^3/uL Baso # (Auto) (0.00-0.10) 10^3/uL Immature Gran # (Auto) (0.00-0.50) 10^3/uL Sodium (136-145) mmol/L Potassium (3.5-5.1) mmol/L Chloride (98-107) mmol/L Carbon Dioxide (21.0-32.0) mmol/L Anion Gap (5-15) mmol/L BUN 73 H* (7-18) mg/dL Creatinine 4.76 H (0.51-1.17) mg/dL Est Cr Clr Drug Dosing 10.30 mL/min Estimated GFR (MDRD) 9 mL/min Glucose (70-140) mg/dL POC Glucose 66 L 77 (70-140) mg/dL Hemoglobin A1c (4.3-5.7) % Lactic Acid (0.4-2.0) mmol/L Calcium (8.7-10.3) mg/dL Phosphorus (2.6-4.7) mg/dL Magnesium (1.8-2.4) mg/dL Total Bilirubin (0.2-1.0) mg/dL AST (15-37) U/L ALT (14-63) U/L Alkaline Phosphatase (46-116) U/L Creatine Kinase (26-276) U/L Total Protein (6.4-8.2) g/dL Albumin (3.40-5.00) g/dL Specimen Type Urine Color (YELLOW) Urine Appearance (CLEAR) Urine pH (5.0-9.0) Ur Specific [place] (1.005-1.030) Urine Protein (NEGATIVE) mg/dL Urine Glucose (UA) (NEGATIVE) mg/dL Urine Ketones (NEGATIVE) mg/dL Urine Occult Blood (NEGATIVE) Urine Nitrite (NEGATIVE) Urine Bilirubin (NEGATIVE) Urine Urobilinogen (0.2-1.0) E.U./dL Ur Leukocyte Esterase (NEGATIVE) Urine RBC (0-5) /HPF Urine WBC (0-5) /HPF Ur Epithelial Cells /LPF Amorphous Sediment (0/HPF) /HPF Urine Bacteria (NONE TO FEW) /HPF Granular Casts (Auto) SARS CoV-2 RNA Rapid KIMBERLY (NEGATIVE) 08/29/21 08/29/21 08/29/21 Range/Units 18:00 18:00 19:19 WBC (5.00-10.00) 10^3/uL RBC (3.80-5.50) 10^6/uL Hgb 9.1 L (12.0-16.0) g/dL Hct 26.6 L (37.0-47.0) % MCV (82.0-92.0) fL MCH (27.0-31.0) pg MCHC (32.0-36.0) g/dL RDW (11.5-14.5) % Plt Count (150-400) 10^3/uL MPV (7.4-10.4) fL Immature Gran % (Auto) (0.0-5.0) % Neut % (Auto) (50.0-70.0) % Lymph % (Auto) (20.0-40.0) % [place] % (Auto) (2.0-8.0) % Eos % (Auto) (1.0-3.0) % Baso % (Auto) (0.0-1.0) % Neut # (Auto) (2.50-7.00) 10^3/uL Lymph # (Auto) (1.00-4.00) 10^3/uL [place] # (Auto) (0.10-0.80) 10^3/uL Eos # (Auto) (0.10-0.30) 10^3/uL Baso # (Auto) (0.00-0.10) 10^3/uL Immature Gran # (Auto) (0.00-0.50) 10^3/uL Sodium (136-145) mmol/L Potassium (3.5-5.1) mmol/L Chloride (98-107) mmol/L Carbon Dioxide (21.0-32.0) mmol/L Anion Gap (5-15) mmol/L BUN (7-18) mg/dL Creatinine (0.51-1.17) mg/dL Est Cr Clr Drug Dosing mL/min Estimated GFR (MDRD) mL/min Glucose (70-140) mg/dL POC Glucose 91 (70-140) mg/dL Hemoglobin A1c 6.0 H (4.3-5.7) % Lactic Acid (0.4-2.0) mmol/L Calcium (8.7-10.3) mg/dL Phosphorus (2.6-4.7) mg/dL Magnesium (1.8-2.4) mg/dL Total Bilirubin (0.2-1.0) mg/dL AST (15-37) U/L ALT (14-63) U/L Alkaline Phosphatase (46-116) U/L Creatine Kinase (26-276) U/L Total Protein (6.4-8.2) g/dL Albumin (3.40-5.00) g/dL Specimen Type Urine Color (YELLOW) Urine Appearance (CLEAR) Urine pH (5.0-9.0) Ur Specific [place] (1.005-1.030) Urine Protein (NEGATIVE) mg/dL Urine Glucose (UA) (NEGATIVE) mg/dL Urine Ketones (NEGATIVE) mg/dL Urine Occult Blood (NEGATIVE) Urine Nitrite (NEGATIVE) Urine Bilirubin (NEGATIVE) Urine Urobilinogen (0.2-1.0) E.U./dL Ur Leukocyte Esterase (NEGATIVE) Urine RBC (0-5) /HPF Urine WBC (0-5) /HPF Ur Epithelial Cells /LPF Amorphous Sediment (0/HPF) /HPF Urine Bacteria (NONE TO FEW) /HPF Granular Casts (Auto) SARS CoV-2 RNA Rapid KIMBERLY (NEGATIVE) 08/29/21 08/30/21 08/30/21 Range/Units 21:16 05:36 07:05 WBC 6.30 (5.00-10.00) 10^3/uL RBC 2.82 L (3.80-5.50) 10^6/uL Hgb 9.3 L (12.0-16.0) g/dL Hct 27.9 L (37.0-47.0) % MCV 98.9 H (82.0-92.0) fL MCH 33.0 H (27.0-31.0) pg MCHC 33.3 (32.0-36.0) g/dL RDW 12.6 (11.5-14.5) % Plt Count 207 (150-400) 10^3/uL MPV 9.4 (7.4-10.4) fL Immature Gran % (Auto) 0.5 (0.0-5.0) % Neut % (Auto) 64.9 (50.0-70.0) % Lymph % (Auto) 21.9 (20.0-40.0) % [place] % (Auto) 8.7 H (2.0-8.0) % Eos % (Auto) 3.7 H (1.0-3.0) % Baso % (Auto) 0.3 (0.0-1.0) % Neut # (Auto) 4.09 (2.50-7.00) 10^3/uL Lymph # (Auto) 1.38 (1.00-4.00) 10^3/uL [place] # (Auto) 0.55 (0.10-0.80) 10^3/uL Eos # (Auto) 0.23 (0.10-0.30) 10^3/uL Baso # (Auto) 0.02 (0.00-0.10) 10^3/uL Immature Gran # (Auto) 0.03 (0.00-0.50) 10^3/uL Sodium (136-145) mmol/L Potassium (3.5-5.1) mmol/L Chloride (98-107) mmol/L Carbon Dioxide (21.0-32.0) mmol/L Anion Gap (5-15) mmol/L BUN (7-18) mg/dL Creatinine (0.51-1.17) mg/dL Est Cr Clr Drug Dosing mL/min Estimated GFR (MDRD) mL/min Glucose (70-140) mg/dL POC Glucose 111 117 (70-140) mg/dL Hemoglobin A1c (4.3-5.7) % Lactic Acid (0.4-2.0) mmol/L Calcium (8.7-10.3) mg/dL Phosphorus (2.6-4.7) mg/dL Magnesium (1.8-2.4) mg/dL Total Bilirubin (0.2-1.0) mg/dL AST (15-37) U/L ALT (14-63) U/L Alkaline Phosphatase (46-116) U/L Creatine Kinase (26-276) U/L Total Protein (6.4-8.2) g/dL Albumin (3.40-5.00) g/dL Specimen Type Urine Color (YELLOW) Urine Appearance (CLEAR) Urine pH (5.0-9.0) Ur Specific [place] (1.005-1.030) Urine Protein (NEGATIVE) mg/dL Urine Glucose (UA) (NEGATIVE) mg/dL Urine Ketones (NEGATIVE) mg/dL Urine Occult Blood (NEGATIVE) Urine Nitrite (NEGATIVE) Urine Bilirubin (NEGATIVE) Urine Urobilinogen (0.2-1.0) E.U./dL Ur Leukocyte Esterase (NEGATIVE) Urine RBC (0-5) /HPF Urine WBC (0-5) /HPF Ur Epithelial Cells /LPF Amorphous Sediment (0/HPF) /HPF Urine Bacteria (NONE TO FEW) /HPF Granular Casts (Auto) SARS CoV-2 RNA Rapid KIMBERLY (NEGATIVE) 08/30/21 08/30/21 Range/Units 07:05 07:32 WBC (5.00-10.00) 10^3/uL RBC (3.80-5.50) 10^6/uL Hgb (12.0-16.0) g/dL Hct (37.0-47.0) % MCV (82.0-92.0) fL MCH (27.0-31.0) pg MCHC (32.0-36.0) g/dL RDW (11.5-14.5) % Plt Count (150-400) 10^3/uL MPV (7.4-10.4) fL Immature Gran % (Auto) (0.0-5.0) % Neut % (Auto) (50.0-70.0) % Lymph % (Auto) (20.0-40.0) % [place] % (Auto) (2.0-8.0) % Eos % (Auto) (1.0-3.0) % Baso % (Auto) (0.0-1.0) % Neut # (Auto) (2.50-7.00) 10^3/uL Lymph # (Auto) (1.00-4.00) 10^3/uL [place] # (Auto) (0.10-0.80) 10^3/uL Eos # (Auto) (0.10-0.30) 10^3/uL Baso # (Auto) (0.00-0.10) 10^3/uL Immature Gran # (Auto) (0.00-0.50) 10^3/uL Sodium 142 (136-145) mmol/L Potassium 4.2 (3.5-5.1) mmol/L Chloride 109 H (98-107) mmol/L Carbon Dioxide 19.9 L (21.0-32.0) mmol/L Anion Gap 17.3 H (5-15) mmol/L BUN 67 H* (7-18) mg/dL Creatinine 4.73 H (0.51-1.17) mg/dL Est Cr Clr Drug Dosing 10.37 mL/min Estimated GFR (MDRD) 9 mL/min Glucose 129 (70-140) mg/dL POC Glucose 129 (70-140) mg/dL Hemoglobin A1c (4.3-5.7) % Lactic Acid (0.4-2.0) mmol/L Calcium 7.4 L (8.7-10.3) mg/dL Phosphorus 9.0 H* (2.6-4.7) mg/dL Magnesium 2.0 (1.8-2.4) mg/dL Total Bilirubin (0.2-1.0) mg/dL AST (15-37) U/L ALT (14-63) U/L Alkaline Phosphatase (46-116) U/L Creatine Kinase (26-276) U/L Total Protein (6.4-8.2) g/dL Albumin (3.40-5.00) g/dL Specimen Type Urine Color (YELLOW) Urine Appearance (CLEAR) Urine pH (5.0-9.0) Ur Specific [place] (1.005-1.030) Urine Protein (NEGATIVE) mg/dL Urine Glucose (UA) (NEGATIVE) mg/dL Urine Ketones (NEGATIVE) mg/dL Urine Occult Blood (NEGATIVE) Urine Nitrite (NEGATIVE) Urine Bilirubin (NEGATIVE) Urine Urobilinogen (0.2-1.0) E.U./dL Ur Leukocyte Esterase (NEGATIVE) Urine RBC (0-5) /HPF Urine WBC (0-5) /HPF Ur Epithelial Cells /LPF Amorphous Sediment (0/HPF) /HPF Urine Bacteria (NONE TO FEW) /HPF Granular Casts (Auto) SARS CoV-2 RNA Rapid KIMBERLY (NEGATIVE) Result Diagrams: 08/30/21 07:05 08/30/21 07:05 Sepsis Event Note - Evaluation Sepsis Screening Result: No Definite Risk - Focused Exam Vital Signs: Vital Signs Temp Pulse Pulse Resp BP BP Pulse Ox 08/30/21 08:16 83 115/41 L 08/30/21 06:06 97.9 F 75 18 112/40 L 95 08/30/21 02:41 98.7 F 18 110/48 L 97 - Problem List Review Problem List Initiated/Reviewed/Updated: Yes - My Orders Last 24 Hours: My Active Orders 08/30/21 09:10 OCCULT BLD GASTRIC Routine 08/30/21 09:15 Sodium Chloride 0.9% [Normal Saline] 1,000 ml IV ASDIRECTED 08/30/21 16:00 BASIC METABOLIC PANEL,BMP [CHEM] Routine PHOSPHORUS [CHEM] Routine - Plan Plan:: Hx Summary: Ms Bedolla is a 76 y/o female #1 into INPT status from the ED due to hypoglycemia Patient presents via EMS with report of LOC due to low blood sugar. This morning her couldn't awaken her so called the ambulance. On arrival they couldn't get any glucose result so gave her a dose of glucagon. Soon after she became alert and POC glucose was 82. In ER POC glucose is 85 and patient is awake, alert, and appropriate. She denies any pain in chest, abdomen, or elsewhere. She doesn't remember what happened this morning. Her doesn't know how long she was unconscious since she was asleep when the hypoglycemia developed. She has diabetes and takes glipizide but no insulin or other diabetes medications. She says her glucose was low yesterday morning as well; they measured 50 but she felt okay. We are giving her some toast and OJ as soon as lab is done drawing blood. Her tells us that he wonders if she had a stroke 4 days ago. She became very sleepy and weak in her legs but primarily in her arms and hands. She also seemed to stare off when reading [employer] cards. Since then she hasn't been very active, he doesn't know if she has walked at all. He didn't notice any facial droop, focal weakness, or other asymmetry, but did think her speech was slurred or more difficult to understand. 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 Change to NS 125 mL/hr Bladder Scan, stat Renal US
[2021-08-30 11:07] VITALS: BP 99/33; PULSE 73
== END 2021-08-30 12:00 | DRG 639 ==
LOC: KA.ED 10:24 → KA.MS 13:17
PROVIDERS: ADMIT Internal Medicine; ATTEND Internal Medicine
DX: E11.649 Type 2 diabetes mellitus with hypoglycemia without coma (principal); N17.9 Acute kidney failure, unspecified; H54.7 Unspecified visual loss; E78.00 Pure hypercholesterolemia, unspecified; G47.30 Sleep apnea, unspecified; G89.29 Other chronic pain; M19.90 Unspecified osteoarthritis, unspecified site; M81.0 Age-related osteoporosis without current pathological fracture; E11.42 Type 2 diabetes mellitus with diabetic polyneuropathy; Z85.828 Personal history of other malignant neoplasm of skin; E83.39 Other disorders of phosphorus metabolism; Z88.7 Allergy status to serum and vaccine; Z88.8 Allergy status to other drugs, medicaments and biological substances; Z79.84 Long term (current) use of oral hypoglycemic drugs; Z79.899 Other long term (current) drug therapy; E78.5 Hyperlipidemia, unspecified; F17.210 Nicotine dependence, cigarettes, uncomplicated; Z20.822 Contact with and (suspected) exposure to COVID-19; G47.33 Obstructive sleep apnea (adult) (pediatric); Z98.890 Other specified postprocedural states; Z79.4 Long term (current) use of insulin; Z90.710 Acquired absence of both cervix and uterus; Z90.89 Acquired absence of other organs
CPT/HCPCS: 36415; 70450; 71045; 80048; 80053; 81001; 82140; 82550; 82565; 82607; 82947; 83036; 83605; 83735; 83970; 84100; 84439; 84443; 84484; 84520; 85014; 85018; 85025; 93005; 96374; 99285-25; A9270-GY; J7030; J7042; U0002

== ENCOUNTER 2021-09-05 09:38 | Inpatient (IN) | payer MEDICARE, BC ==
[2021-09-05] MEDS ORDERED: Nitroglycerin 0.4 MG Tab.SL SL PRN (13:16)
[2021-09-05] MEDS ORDERED: Glucagon,Human Recombinant 1 MG Vial IM PRN (13:34)
[2021-09-05] MEDS ORDERED: 50% Dextrose in Water 50 ML Syringe IVPUSH PRN (13:34)
[2021-09-05] MEDS: Furosemide 40 MG Tab PO SCH (14:12)
[2021-09-05] MEDS: oxyCODONE 5 MG Tab PO SCH ×2 (14:12→20:15)
[2021-09-05] MEDS: busPIRone 10 MG Tab PO SCH ×2 (14:13→20:15)
--- NOTE | 2021-09-05 14:31 | PCM.HP.2 ---
H&P History of Present Illness - General Date of Service: 09/05/21 Admit Problem/Dx: Admission Diagnosis/Problem Admission Diagnosis/Problem Weakness - History of Present Illness Initial Comments - Free Text/Narative: 09/05: [facility] a a hospital stay for KAMALA with metabolic encephalopathy. She was hospitalized at [facility] from 08/29 - 08/30 with KAMALA, BUN in the 70's and creatinine at 4.9 with no hx of renal insufficiency and hypoglycemia. She had only been on glipizide 5 mg PO BID. 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 She was hospitalized at [facility] in [place] from 08/30 - 09/05 and had slow improvement in her renal function being diagnosed with KAMALA, probably ATN from prolonged prerenal state. Renal U/S consistent with chronic medical renal disease. Her encephalopathy was felt to be due to her KAMALA in combination with high dose gabapentin and morphine sulfate in the setting of renal insufficiency. Her gabapentin has been reduced and her morphine sulfate discontinued and now is only on oxycodone at a relatively low dose. She is very happy to be back in [place] and alive. She states she really feels pretty good but is weak. She is admitted for PT/OT for strengthening and following of her labs. back Pain Score (Numeric/FACES): 3 - Related Data Allergies/Adverse Reactions: Allergies Allergy/AdvReac Type Severity Reaction Status Date / Time morphine Allergy Cannot Verified 09/05/21 13:40 Remember primidone Allergy Hallucinati Verified 09/05/21 13:40 ons Tetanus Vaccines and Toxoid Allergy Anaphylactic Verified 09/05/21 13:40 [Tetanus Vaccines & Toxoid] Shock Home Medications: Home Meds atorvaSTATin [Lipitor] 10 mg PO BEDTIME 01/07/17 [History] Propranolol HCl 20 mg PO BID 05/02/20 [History] Acetaminophen 650 mg PO Q4H PRN 09/05/21 [History] DULoxetine [Cymbalta] 60 mg PO DAILY 09/05/21 [History] Furosemide [Lasix] 40 mg PO DAILY 09/05/21 [History] Gabapentin [Neurontin] 200 mg PO BID 09/05/21 [History] Nicotine Polacrilex [Nicotine Lozenge] 2 mg BC Q1H PRN 09/05/21 [History] Nicotine [Nicotine Patch] 21 mg TD DAILY 09/05/21 [History] Nitroglycerin 0.4 mg SL ASDIRECTED PRN 09/05/21 [History] Sennosides/Docusate Sodium [Senna-Docusate Sodium Tablet] 2 tab PO BID PRN 09/05/21 [History] Sevelamer Carbonate [Renvela] 800 mg PO TIDMEALS 09/05/21 [History] busPIRone [Buspar] 10 mg PO TID 09/05/21 [History] calcitrioL [Calcitriol] 0.25 mcg PO DAILY 09/05/21 [History] oxyCODONE 5 mg PO BID PRN 09/05/21 [History] oxyCODONE 5 mg PO TID 09/05/21 [History] Past Medical History - Past Health History Medical/Surgical History: Denies Medical/Surgical History HEENT History: Reports: Cataract, Impaired Vision, Sinusitis Cardiovascular History: Reports: Angina, High Cholesterol Other Cardiovascular History: chest pain 1 week ago with a stress test scheduled for january 27 Respiratory History: Reports: Sleep Apnea, Other (See Below) Other Respiratory History: uses bipap at night. Every day smoker x60 years. 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: Musculoskeletal History: Reports: Back Pain, Chronic, Osteoarthritis, Osteoporosis, Other (See Below) Other Musculoskeletal History: Degenetive joint disease Neurological History: Reports: Headaches, Chronic, Migraines, Neuropathy, Peripheral Psychiatric History: Reports: None Endocrine/Metabolic History: Reports: Diabetes, Type II Hematologic History: Reports: None Oncologic (Cancer) History: Reports: Basal Cell Carcinoma Dermatologic History: Reports: None - Infectious Disease History Infectious Disease History: Reports: Chicken Pox, Measles, Mumps - Past Surgical History Head Surgeries/Procedures: Reports: None Cardiovascular Surgical History: Reports: Other (See Below) Other Cardiovascular Surgeries/Procedures: angiogram Respiratory Surgical History: Reports: Lung Biopsies, Pneumonectomy, Other (See Below) Other Respiratory Surgeries/Procedures: Left lower lung - nonmalignant GI Surgical History: Reports: Colonoscopy Female Surgical History: Reports: Hysterectomy Neurological Surgical History: Reports: None Musculoskeletal Surgical History: Reports: Other (See Below) Other Musculoskeletal Surgeries/Procedures:: ganglion cyst removal. Dermatological Surgical History: Reports: Skin Biopsy - Past Imaging History Past Imaging History: Reports: CAT Scan, Xray Social & Family History - Family History Family Medical History: No Pertinent Family History - Tobacco Use Tobacco Use Status *Q: Current Every Day Tobacco User Years of Tobacco use: 50 Packs/Tins Daily: 1 Used Tobacco, but Quit: No Month/Year Tobacco Last Used: 1 week ago has had nicotine patch on - Caffeine Use Caffeine Use: Reports: Coffee, Soda - Recreational Drug Use Recreational Drug Use: No - Living Situation & Occupation Living situation: Reports: , with Spouse Occupation: Retired H&P Review of Systems - Review of Systems: Review Of Systems: See Below Exam - Exam Exam: See Below - Vital Signs Vital Signs: Last Vital Signs Temp 97.1 F 09/05/21 13:12 Pulse 73 09/05/21 13:12 Resp 16 09/05/21 13:12 BP 161/50 H 09/05/21 13:12 Pulse Ox 95 09/05/21 13:14 Weight: 213 lb 12.8 oz - Exam Quality Assessment: Supplemental Oxygen General: Alert, Oriented, Cooperative Lungs: Normal Respiratory Effort Sepsis Event Note - Evaluation Sepsis Screening Result: No Definite Risk - Focused Exam Vital Signs: Vital Signs Temp Pulse Resp BP Pulse Ox Pulse Ox 09/05/21 13:14 95 09/05/21 13:12 97.1 F 73 16 161/50 H 95 Problem List Initiated/Reviewed/Updated: Yes Orders Last 24hrs: Active Orders 24 hr Category Date Time Status Patient Status [ADT] Routine ADT 09/05/21 13:14 Active Antiembolic Devices [RC] PER UNIT ROUTINE Care 09/05/21 13:15 Active Blood Glucose Check, Bedside [RC] QIDACANDBED Care 09/05/21 13:14 Active Dietary Supplements [RC] BIDMEALS Care 09/05/21 12:00 Active Oxygen Therapy [RC] PRN Care 09/05/21 13:14 Active Up With Assistance [RC] ASDIRECTED Care 09/05/21 13:14 Active VTE/DVT Education [RC] PER UNIT ROUTINE Care 09/05/21 13:14 Active Vital Signs [RC] DAILY Care 09/05/21 13:14 Active OT Evaluation and Treatment [CONS] Routine Cons 09/05/21 13:14 Active PT Evaluation and Treatment [CONS] Routine Cons 09/05/21 13:14 Active [employer] Diet [DIET] Diet 09/05/21 Dinner Active BASIC METABOLIC PANEL,BMP [CHEM] AM Lab 09/06/21 05:11 Ordered CBC WITH AUTO DIFF [HEME] AM Lab 09/06/21 05:11 Ordered Acetaminophen [TylenoL] Med 09/05/21 13:16 Active 650 mg PO Q4H PRN DULoxetine [Cymbalta] Med 09/06/21 09:00 Active 60 mg PO DAILY Dextrose 50% in Water Med 09/05/21 13:34 Active 50 ml IVPUSH ASDIRECTED PRN Docusate Sodium/Sennosides [Senna Plus] Med 09/05/21 13:16 Active 2 tab PO BID PRN Furosemide [Lasix] Med 09/05/21 13:30 Active 40 mg PO DAILY Gabapentin [Neurontin] Med 09/05/21 21:00 Active 200 mg PO BID Glucagon,Human Recombinant [GlucaGen] Med 09/05/21 13:34 Active 1 mg IM ASDIRECTED PRN Insulin Aspart [NovoLOG] Med 09/05/21 18:00 Active See Protocol SUBCUT WITHMEALSANDBED Nicotine Polacrilex [Nicotine Lozenge] Med 09/05/21 13:16 Ordered 2 mg BC Q1H PRN Nicotine [Habitrol] Med 09/06/21 09:00 Active 21 mg TRDERM DAILY Nitroglycerin [Nitrostat] Med 09/05/21 13:16 Active 0.4 mg SL ASDIRECTED PRN Propranolol [Inderal] Med 09/05/21 21:00 Active 20 mg PO BID Sevelamer Carbonate [Renvela] Med 09/05/21 18:00 Ordered 800 mg PO TIDMEALS atorvaSTATin [Lipitor] Med 09/05/21 21:00 Active 10 mg PO BEDTIME busPIRone [Buspar] Med 09/05/21 14:00 Active 10 mg PO TID calcitrioL [Rocaltrol] Med 09/06/21 09:00 Active 0.25 mcg PO DAILY oxyCODONE Med 09/05/21 13:16 Active 5 mg PO BID PRN oxyCODONE Med 09/05/21 14:00 Active 5 mg PO TID Antiembolic Hose [OM.PC] Per Unit Routine Oth 09/05/21 13:15 Ordered Resuscitation Status Routine Resus Stat 09/05/21 13:14 Ordered Medication Orders Acetaminophen (Acetaminophen 325 Mg Tab) 650 mg PO Q4H PRN PRN Reason: Pain (mild 1-3) Atorvastatin Calcium (Atorvastatin 10 Mg Tab) 10 mg PO BEDTIME [facility] Buspirone HCl (Buspirone 10 Mg Tab) 10 mg PO TID [facility] Last Admin: 09/05/21 14:13 Dose: 10 mg Documented by: ONIEL Calcitriol (Calcitriol 0.25 Mcg Cap) 0.25 mcg PO DAILY [facility] Dextrose/Water (50% Dextrose In Water 50 Ml Syringe) 50 ml IVPUSH ASDIRECTED PRN PRN Reason: Hypoglycemia Duloxetine HCl (Duloxetine 30 Mg Cap) 60 mg PO DAILY [facility] Furosemide (Furosemide 40 Mg Tab) 40 mg PO DAILY [facility] Last Admin: 09/05/21 14:12 Dose: 40 mg Documented by: ONIEL Gabapentin (Gabapentin 100 Mg Cap) 200 mg PO BID [facility] Glucagon (Glucagon,Human Recombinant 1 Mg Vial) 1 mg IM ASDIRECTED PRN PRN Reason: Hypoglycemia Insulin Aspart (Insulin Aspart 100 Units/Ml 3 Ml Pen) 0 unit SUBCUT WITHMEALSANDBED [facility]; Protocol Nicotine (Nicotine 21 Mg/24 Hr Patch) 21 mg TRDERM DAILY [facility] Nitroglycerin (Nitroglycerin 0.4 Mg Tab.Sl) 0.4 mg SL ASDIRECTED PRN PRN Reason: Chest Pain Non-Formulary Medication (Nicotine Polacrilex [Nicotine Lozenge]) 2 mg BC Q1H PRN PRN Reason: Other Non-Formulary Medication (Sevelamer Carbonate [Renvela]) 800 mg PO TIDMEALS [facility] Oxycodone HCl (Oxycodone 5 Mg Tab) 5 mg PO BID PRN PRN Reason: Pain (moderate 4-6) Oxycodone HCl (Oxycodone 5 Mg Tab) 5 mg PO TID [facility] Last Admin: 09/05/21 14:12 Dose: 5 mg Documented by: ONIEL Propranolol HCl (Propranolol 20 Mg Tab) 20 mg PO BID [facility] Senna/Docusate Sodium (Docusate Sodium/Sennosides 50-8.6 Mg Tab) 2 tab PO BID PRN PRN Reason: Constipation Assessment/Plan Comment:: Admission Diagnoses: Weakness/deconditioning - PT/OT consultation with goal to return to home [place], felt to be ATN, improving renal indices - Weekly BMP, sooner if clinically indicated, will check in AM on 09/06 - No need for IVF's 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 - Calcitriol 0.25 mcg PO daily - Renvela 800 mg PO TID Anemia of CKD, hemoglobin stable in the 9 range - Weekly CBC, will check in AM on 09/06 Secondary Diagnoses: DM2 - Continue to hold Glipizide - Novolog medium dose SSI Essential Tremor - Propranolol 20 mg PO BID Depression with anxiety - Duloxetine 60 mg PO daily - Buspirone 10 mg PO TID Peripheral Edema - Furosemide 40 mg PO daily HLD - Atorvastatin 10 mg PO qhs Chronic Pain with component of neuropathic pain - Gabapentin 200 mg PO BID - Oxycodone 5 mg PO TID scheduled and 5 mg PO BID PRN Nicotine dependence - Nicotine TD, 21 mg daily Constipation - Senna-Plus, 2 tabs PO BID PRN Diet: Diabetic DVT prophylaxis: Ambulatory, AMANDA stockings CODE STATUS: Full Code - Mortality Measure Prognosis:: Good
[2021-09-05] MEDS ORDERED: NICOTINE 2 MG PO PRN (15:38)
[2021-09-05] MEDS: Acetaminophen 325 MG Tab PO PRN (15:53)
[2021-09-05] MEDS: SEVELAMER CARBONATE 800 MG PO SCH (17:45)
[2021-09-05] MEDS: Insulin Aspart 100 Units/ML 3 ML Pen SUBCUT SCH ×2 (17:46→22:00)
[2021-09-05] MEDS ORDERED: Ondansetron 4 MG Tab.DIS PO PRN (19:53)
[2021-09-05] MEDS: atorvaSTATin 10 MG Tab PO SCH (20:14)
[2021-09-05] MEDS: Gabapentin 100 MG Cap PO SCH (20:15)
[2021-09-05] MEDS: Propranolol 20 MG Tab PO SCH (20:16)
[2021-09-06] MEDS: oxyCODONE 5 MG Tab PO PRN ×2 (03:55→22:42)
[2021-09-06 07:45] LABS: ANION GAP 10.4 mmol/L (5-15)
[2021-09-06] MEDS: Nicotine 21 MG/24 Hr Patch TRDERM SCH (08:33)
[2021-09-06] MEDS: Propranolol 20 MG Tab PO SCH ×2 (08:34→20:13)
[2021-09-06] MEDS: Gabapentin 100 MG Cap PO SCH ×2 (08:34→20:05)
[2021-09-06] MEDS: busPIRone 10 MG Tab PO SCH ×3 (08:35→20:06)
[2021-09-06] MEDS: Furosemide 40 MG Tab PO SCH (08:35)
[2021-09-06] MEDS: DULoxetine 30 MG Cap PO SCH (08:35)
[2021-09-06] MEDS: Calcitriol 0.25 MCG Cap PO SCH (08:35)
[2021-09-06] MEDS: Insulin Aspart 100 Units/ML 3 ML Pen SUBCUT SCH ×4 (08:41→21:11)
[2021-09-06] MEDS: SEVELAMER CARBONATE 800 MG PO SCH ×3 (08:43→19:11)
[2021-09-06] MEDS: oxyCODONE 5 MG Tab PO SCH ×3 (08:53→20:06)
[2021-09-06] MEDS ORDERED: Potassium Bicarbonate 25 MEQ Tab.EFF PO ONE ×2 (09:00→17:00)
[2021-09-06] MEDS ORDERED: Potassium Bicarbonate 25 MEQ Tab.EFF ONE (19:05)
[2021-09-06] MEDS: atorvaSTATin 10 MG Tab PO SCH (20:06)
[2021-09-07] MEDS: Acetaminophen 325 MG Tab PO PRN (06:00)
[2021-09-07] MEDS ORDERED: Potassium Chloride 20 MEQ Tab.ER PO SCH (08:00)
[2021-09-07 08:04] LABS: ANION GAP 8.8 mmol/L (5-15)
[2021-09-07] MEDS: Insulin Aspart 100 Units/ML 3 ML Pen SUBCUT SCH ×4 (08:32→21:30)
[2021-09-07] MEDS: SEVELAMER CARBONATE 800 MG PO SCH ×3 (08:34→18:13)
[2021-09-07] MEDS: Nicotine 21 MG/24 Hr Patch TRDERM SCH (08:35)
[2021-09-07] MEDS: DULoxetine 30 MG Cap PO SCH (08:35)
[2021-09-07] MEDS: busPIRone 10 MG Tab PO SCH ×3 (08:35→21:08)
[2021-09-07] MEDS: Propranolol 20 MG Tab PO SCH ×2 (08:38→21:08)
[2021-09-07] MEDS: Furosemide 40 MG Tab PO SCH (08:39)
[2021-09-07] MEDS: oxyCODONE 5 MG Tab PO SCH ×4 (08:39→21:08)
[2021-09-07] MEDS: Calcitriol 0.25 MCG Cap PO SCH (08:41)
[2021-09-07] MEDS: Gabapentin 100 MG Cap PO SCH ×2 (08:41→21:09)
[2021-09-07] MEDS ORDERED: Potassium Chloride 20 MEQ Tab.ER PO ONE (09:30)
--- NOTE | 2021-09-07 09:32 | PCM.SN.2 ---
- Free Text/Narrative Note: 09/07: Karoline was previously on morphine sulfate IR 15 mg PO q 4 hours scheduled as an outpatient. This was discontinued in [place] and she was placed on oxycodone 5 mg TID scheduled and BID PRN. She states that she is miserable waiting that extra hour and would like to go back to q 4 hours scheduled. She is fine staying on the oxycodone and so will d/c BID PRN and schedule 5 mg PO q 4 4hours. She also remains hypokalemia and so will increase potassium supplementation from 20 mEq PO daily to 60 mEq PO daily.
[2021-09-07] MEDS: Pantoprazole 40 MG Tab.CR PO SCH (16:40)
[2021-09-07] MEDS: atorvaSTATin 10 MG Tab PO SCH (21:08)
[2021-09-08] MEDS: Acetaminophen 325 MG Tab PO PRN (00:06)
[2021-09-08] MEDS: oxyCODONE 5 MG Tab PO SCH ×6 (00:36→20:38)
[2021-09-08] MEDS: Pantoprazole 40 MG Tab.CR PO SCH ×2 (05:43→06:33)
[2021-09-08] MEDS: Potassium Chloride 20 MEQ Tab.ER PO SCH (07:55)
[2021-09-08] MEDS: Insulin Aspart 100 Units/ML 3 ML Pen SUBCUT SCH ×5 (07:55→21:03)
[2021-09-08] MEDS: SEVELAMER CARBONATE 800 MG PO SCH ×3 (07:56→17:28)
[2021-09-08 08:00] LABS: ANION GAP 10.8 mmol/L (5-15)
[2021-09-08] MEDS: Furosemide 40 MG Tab PO SCH (08:00)
[2021-09-08] MEDS: Propranolol 20 MG Tab PO SCH ×2 (08:00→20:39)
[2021-09-08] MEDS: Nicotine 21 MG/24 Hr Patch TRDERM SCH (08:00)
[2021-09-08] MEDS: Gabapentin 100 MG Cap PO SCH ×2 (08:00→20:39)
[2021-09-08] MEDS: DULoxetine 30 MG Cap PO SCH (08:01)
[2021-09-08] MEDS: Calcitriol 0.25 MCG Cap PO SCH (08:01)
[2021-09-08] MEDS: busPIRone 10 MG Tab PO SCH ×3 (08:02→20:39)
[2021-09-08] MEDS ORDERED: Potassium Chloride 20 MEQ Tab.ER PO ONE (14:00)
[2021-09-08] MEDS: LORazepam 0.5 MG Tab PO PRN (16:19)
[2021-09-08] MEDS: atorvaSTATin 10 MG Tab PO SCH (20:37)
[2021-09-08] MEDS ORDERED: Aluminum Hydroxide/Magnesium Hydroxide/Simethicone Susp 30 ML Cup PO PRN (20:53)
[2021-09-09] MEDS: oxyCODONE 5 MG Tab PO SCH ×6 (01:33→20:58)
[2021-09-09] MEDS: Pantoprazole 40 MG Tab.CR PO SCH ×2 (04:50→06:31)
[2021-09-09 07:57] LABS: ANION GAP 7.8 mmol/L (5-15)
[2021-09-09] MEDS: Insulin Aspart 100 Units/ML 3 ML Pen SUBCUT SCH ×4 (08:14→21:09)
[2021-09-09] MEDS: Potassium Chloride 20 MEQ Tab.ER PO SCH (08:30)
[2021-09-09] MEDS: Gabapentin 100 MG Cap PO SCH ×2 (08:31→20:57)
[2021-09-09] MEDS: Propranolol 20 MG Tab PO SCH ×2 (08:31→20:59)
[2021-09-09] MEDS: Furosemide 40 MG Tab PO SCH (08:31)
[2021-09-09] MEDS: DULoxetine 30 MG Cap PO SCH (08:31)
[2021-09-09] MEDS: busPIRone 10 MG Tab PO SCH ×3 (08:31→20:58)
[2021-09-09] MEDS: Nicotine 21 MG/24 Hr Patch TRDERM SCH (08:32)
[2021-09-09] MEDS: Calcitriol 0.25 MCG Cap PO SCH (08:32)
[2021-09-09] MEDS: SEVELAMER CARBONATE 800 MG PO SCH ×3 (08:33→17:13)
--- NOTE | 2021-09-09 10:49 | PCM.SN.2 ---
- Free Text/Narrative Note: 09/09: Notified by nursing staff she has reddened areas under her abdominal folds consistent with evette. Will start Nystatin powder TID to affected areas until resolved. 09/08: Started lorazepam 0.5 mg PO BID PRN for anxiety/agitation
[2021-09-09] MEDS: Nystatin Topical Powder 15 GM Bottle TOP SCH ×2 (13:22→21:11)
[2021-09-09] MEDS: atorvaSTATin 10 MG Tab PO SCH (20:58)
[2021-09-09] MEDS: LORazepam 0.5 MG Tab PO PRN (20:59)
[2021-09-10] MEDS: oxyCODONE 5 MG Tab PO SCH ×6 (01:01→20:18)
[2021-09-10] MEDS: Pantoprazole 40 MG Tab.CR PO SCH ×2 (05:06→06:29)
[2021-09-10 07:43] LABS: ANION GAP 9.6 mmol/L (5-15)
[2021-09-10] MEDS: Insulin Aspart 100 Units/ML 3 ML Pen SUBCUT SCH ×4 (08:02→23:03)
[2021-09-10] MEDS: Nicotine 21 MG/24 Hr Patch TRDERM SCH (08:03)
[2021-09-10] MEDS: SEVELAMER CARBONATE 800 MG PO SCH ×3 (08:03→17:20)
[2021-09-10] MEDS: Nystatin Topical Powder 15 GM Bottle TOP SCH ×3 (08:04→20:19)
[2021-09-10] MEDS: Gabapentin 100 MG Cap PO SCH ×2 (08:04→20:17)
[2021-09-10] MEDS: Calcitriol 0.25 MCG Cap PO SCH (08:05)
[2021-09-10] MEDS: busPIRone 10 MG Tab PO SCH ×3 (08:05→20:18)
[2021-09-10] MEDS: DULoxetine 30 MG Cap PO SCH (08:05)
[2021-09-10] MEDS: Furosemide 40 MG Tab PO SCH (08:05)
[2021-09-10] MEDS: Potassium Chloride 20 MEQ Tab.ER PO SCH (08:06)
[2021-09-10] MEDS: Propranolol 20 MG Tab PO SCH ×2 (08:11→20:17)
--- NOTE | 2021-09-10 09:18 | PCM.PN ---
- General Info Date of Service: 09/10/21 Admission Dx/Problem (Free Text): Admission Diagnosis/Problem Admission Diagnosis/Problem Weakness - Review of Systems Systems Review Comment:: 09/10: Karoline is seen today on swingbed rounds. She states she is feeling so much better. She is able to be off O2 while walking and sitting in her room and is only using it when she sleeps. She feels she may even be strong enough to walk without her walker. Her renal indices continue to improve. Her potassium has normalized. She states her pain is adequately controlled on oxycodone 5 mq PO q 4 hours. She states she mentally feels more clear and does not desire to go back on her morphine sulfate IR. Her gabapentin has been renally dosed at 2 00 mg PO BID and she feels that is adequate control. She reports having a tight calf when walking since she has been in [place] and she is going to talk to PT about that today. 09/09: Notified by nursing staff she has reddened areas under her abdominal folds consistent with evette. Will start Nystatin powder TID to affected areas until resolved. 09/08: Started lorazepam 0.5 mg PO BID PRN for anxiety/agitation 09/07: Karoline was previously on morphine sulfate IR 15 mg PO q 4 hours schedu led as an outpatient. This was discontinued in [place] and she was placed on oxycodone 5 mg TID scheduled and BID PRN. She states that she is miserable waiting that extra hour and would like to go back to q 4 hours scheduled. She is fine staying on the oxycodone and so will d/c BID PRN and schedule 5 mg PO q 4 hours. She also remains hypokalemia and so will increase potassium supplementation from 20 mEq PO daily to 60 mEq PO daily. 09/05: Karoline is admitted to [facility] for strengthening after a a hospital stay for KAMALA with metabolic encephalopathy. She was hospitalized at [facility] from 08/29 - 08/30 with KAMALA, BUN in the 70's and creatinine at 4.9 with no hx of renal insufficiency and hypoglycemia. She had only been on glipizide 5 mg PO BID. She received a total of 3L of IVF's with minimal improvement in renal indices and it was felt she needed higher level of care in the event of need for [employer]. She was hospitalized at [facility] in [place] from 08/30 - 09/05 and had slow improvement in her renal function being diagnosed with KAMALA, probably ATN from prolonged prerenal state. Renal U/S consistent with chronic medical renal disease. Her encephalopathy was felt to be due to her KAMALA in combination with high dose gabapentin and morphine sulfate in the setting of renal insufficiency. Her gabapentin has been reduced and her morphine sulfate discontinued and now is only on oxycodone at a relatively low dose. She is very happy to be back in [place] and alive. She states she really feels pretty good but is weak. She is admitted for PT/OT for strengthening and following of her labs. - Patient Data Vitals - Most Recent: Last Vital Signs Temp 97.1 F 09/10/21 08:10 Pulse 66 09/10/21 08:11 Resp 18 09/10/21 08:10 BP 138/48 L 09/10/21 08:11 Pulse Ox 96 09/10/21 08:10 Weight - Most Recent: 213 lb 12.8 oz I&O - Last 24 Hours: Intake & Output 09/09/21 09/10/21 09/10/21 22:59 06:59 14:59 Intake Total 720 0 Output Total 1150 800 Balance -430 -800 Lab Results Last 24 Hours: Laboratory Results - last 24 hr 09/09/21 09/09/21 09/09/21 Range/Units 11:40 17:12 21:08 Sodium (136-145) mmol/L Potassium (3.5-5.1) mmol/L Chloride (98-107) mmol/L Carbon Dioxide (21.0-32.0) mmol/L Anion Gap (5-15) mmol/L BUN (7-18) mg/dL Creatinine (0.51-1.17) mg/dL Est Cr Clr Drug Dosing mL/min Estimated GFR (MDRD) mL/min Glucose (70-140) mg/dL POC Glucose 127 145 H 164 H (70-140) mg/dL Calcium (8.7-10.3) mg/dL 09/10/21 Range/Units 07:05 Sodium 140 (136-145) mmol/L Potassium 3.9 (3.5-5.1) mmol/L Chloride 100 (98-107) mmol/L Carbon Dioxide 34.3 H (21.0-32.0) mmol/L Anion Gap 9.6 (5-15) mmol/L BUN 31 H (7-18) mg/dL Creatinine 2.89 H (0.51-1.17) mg/dL Est Cr Clr Drug Dosing 16.97 mL/min Estimated GFR (MDRD) 16 mL/min Glucose 153 H (70-140) mg/dL POC Glucose (70-140) mg/dL Calcium 8.5 L (8.7-10.3) mg/dL Med Orders - Current: Current Medications Acetaminophen (Acetaminophen 325 Mg Tab) 650 mg PO Q4H PRN PRN Reason: Pain (mild 1-3) Last Admin: 09/08/21 00:06 Dose: 650 mg Documented by: Al Hydroxide/Mg Hydroxide (Aluminum Hydroxide/Magnesium Hydroxide/Simethicone Susp 30 Ml Cup) 30 ml PO Q4H PRN PRN Reason: Indigestion Atorvastatin Calcium (Atorvastatin 10 Mg Tab) 10 mg PO BEDTIME [facility] Last Admin: 09/09/21 20:58 Dose: 10 mg Documented by: Buspirone HCl (Buspirone 10 Mg Tab) 10 mg PO TID [facility] Last Admin: 09/10/21 08:05 Dose: 10 mg Documented by: Calcitriol (Calcitriol 0.25 Mcg Cap) 0.25 mcg PO DAILY [facility] Last Admin: 09/10/21 08:05 Dose: 0.25 mcg Documented by: Dextrose/Water (50% Dextrose In Water 50 Ml Syringe) 50 ml IVPUSH ASDIRECTED PRN PRN Reason: Hypoglycemia Duloxetine HCl (Duloxetine 30 Mg Cap) 60 mg PO DAILY [facility] Last Admin: 09/10/21 08:05 Dose: 60 mg Documented by: Furosemide (Furosemide 40 Mg Tab) 40 mg PO DAILY [facility] Last Admin: 09/10/21 08:05 Dose: 40 mg Documented by: Gabapentin (Gabapentin 100 Mg Cap) 200 mg PO BID [facility] Last Admin: 09/10/21 08:04 Dose: 200 mg Documented by: Glucagon (Glucagon,Human Recombinant 1 Mg Vial) 1 mg IM ASDIRECTED PRN PRN Reason: Hypoglycemia Insulin Aspart (Insulin Aspart 100 Units/Ml 3 Ml Pen) 0 unit SUBCUT WITHMEALSANDBED [facility]; Protocol Last Admin: 09/10/21 08:02 Dose: 2 unit Documented by: Lorazepam (Lorazepam 0.5 Mg Tab) 0.5 mg PO BID PRN PRN Reason: Agitation Last Admin: 09/09/21 20:59 Dose: 0.5 mg Documented by: Nicotine (Nicotine 21 Mg/24 Hr Patch) 21 mg TRDERM DAILY [facility] Last Admin: 09/10/21 08:03 Dose: 21 mg Documented by: Nitroglycerin (Nitroglycerin 0.4 Mg Tab.Sl) 0.4 mg SL ASDIRECTED PRN PRN Reason: Chest Pain Nystatin (Nystatin Topical Powder 15 Gm Bottle) 0 gm TOP TID [facility] Last Admin: 09/10/21 08:04 Dose: 1 applic Documented by: Ondansetron HCl (Ondansetron 4 Mg Tab.Dis) 4 mg PO Q6H PRN PRN Reason: Nausea/Vomiting Last Admin: 09/05/21 20:14 Dose: 4 mg Documented by: Oxycodone HCl (Oxycodone 5 Mg Tab) 5 mg PO Q4H [facility] Last Admin: 09/10/21 08:05 Dose: 5 mg Documented by: Pantoprazole Sodium (Pantoprazole 40 Mg Tab.Cr) 40 mg PO ACBREAKFAST [facility] Last Admin: 09/10/21 06:29 Dose: Not Given Documented by: Ptom Nicotine 2 Mg (Lozenge) 1 each PO Q1H PRN PRN Reason: Withdrawal Symptoms Ptom- Sevelamer Carbonate 800 Mg Tablet 1 each PO TIDMEALS [facility] Last Admin: 09/10/21 08:03 Dose: 1 each Documented by: Potassium Chloride (Potassium Chloride 20 Meq Tab.Er) 60 meq PO WITHBREAKFAST [facility] Last Admin: 09/10/21 08:06 Dose: 60 meq Documented by: Propranolol HCl (Propranolol 20 Mg Tab) 20 mg PO BID [facility] Last Admin: 09/10/21 08:11 Dose: 20 mg Documented by: Senna/Docusate Sodium (Docusate Sodium/Sennosides 50-8.6 Mg Tab) 2 tab PO BID PRN PRN Reason: Constipation Discontinued Medications Oxycodone HCl (Oxycodone 5 Mg Tab) 5 mg PO BID PRN PRN Reason: Pain (moderate 4-6) Last Admin: 09/06/21 22:42 Dose: 5 mg Documented by: Oxycodone HCl (Oxycodone 5 Mg Tab) 5 mg PO TID [facility] Last Admin: 09/07/21 08:39 Dose: 5 mg Documented by: Potassium Bicarbonate (Potassium Bicarbonate 25 Meq Tab.Eff) 25 meq PO ONETIME ONE Stop: 09/06/21 09:01 Last Admin: 09/06/21 09:04 Dose: 25 meq Documented by: Potassium Bicarbonate (Potassium Bicarbonate 25 Meq Tab.Eff) 25 meq PO ONETIME ONE Stop: 09/06/21 17:01 Last Admin: 09/06/21 19:10 Dose: 25 meq Documented by: Potassium Bicarbonate (Potassium Bicarbonate 25 Meq Tab.Eff) Confirm Administered Dose 25 meq .ROUTE .STK-MED ONE Stop: 09/06/21 19:06 Last Admin: 09/06/21 19:10 Dose: Not Given Documented by: Potassium Chloride (Potassium Chloride 20 Meq Tab.Er) 20 meq PO WITHBREAKFAST NOEL Last Admin: 09/07/21 08:34 Dose: 20 meq Documented by: Potassium Chloride (Potassium Chloride 20 Meq Tab.Er) 40 meq PO ONETIME ONE Stop: 09/07/21 09:31 Last Admin: 09/07/21 12:33 Dose: 40 meq Documented by: Potassium Chloride (Potassium Chloride 20 Meq Tab.Er) 80 meq PO ONETIME ONE Stop: 09/08/21 14:01 Last Admin: 09/08/21 13:35 Dose: 80 meq Documented by: - Exam General: Alert, Oriented, Cooperative, No Acute Distress Lungs: Clear to Auscultation, Normal Respiratory Effort Cardiovascular: Regular Rate, Regular Rhythm, Murmurs (2/6 systolic murmur) - Patient Data Lab Results Last 24 hrs: Laboratory Results - last 24 hr 09/09/21 09/09/21 09/09/21 Range/Units 11:40 17:12 21:08 Sodium (136-145) mmol/L Potassium (3.5-5.1) mmol/L Chloride (98-107) mmol/L Carbon Dioxide (21.0-32.0) mmol/L Anion Gap (5-15) mmol/L BUN (7-18) mg/dL Creatinine (0.51-1.17) mg/dL Est Cr Clr Drug Dosing mL/min Estimated GFR (MDRD) mL/min Glucose (70-140) mg/dL POC Glucose 127 145 H 164 H (70-140) mg/dL Calcium (8.7-10.3) mg/dL 09/10/21 Range/Units 07:05 Sodium 140 (136-145) mmol/L Potassium 3.9 (3.5-5.1) mmol/L Chloride 100 (98-107) mmol/L Carbon Dioxide 34.3 H (21.0-32.0) mmol/L Anion Gap 9.6 (5-15) mmol/L BUN 31 H (7-18) mg/dL Creatinine 2.89 H (0.51-1.17) mg/dL Est Cr Clr Drug Dosing 16.97 mL/min Estimated GFR (MDRD) 16 mL/min Glucose 153 H (70-140) mg/dL POC Glucose (70-140) mg/dL Calcium 8.5 L (8.7-10.3) mg/dL Result Diagrams: 09/06/21 07:00 09/10/21 07:05 Sepsis Event Note - Evaluation Sepsis Screening Result: No Definite Risk - Focused Exam Vital Signs: Vital Signs Temp Pulse Pulse Resp BP BP Pulse Ox 09/10/21 08:11 66 138/48 L 09/10/21 08:10 97.1 F 66 18 132/48 L 96 - Problem List Review Problem List Initiated/Reviewed/Updated: Yes - My Orders Last 24 Hours: My Active Orders 09/09/21 14:00 Nystatin [Nystop] 0 gm TOP TID - Plan Plan:: Admission Diagnoses: Weakness/deconditioning - PT/OT consultation with goal to return to home KAMALA, felt to be ATN, improving renal indices - Weekly BMP, sooner if clinically indicated, will check in AM on 09/06 - No need for IVF's 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 - Calcitriol 0.25 mcg PO daily - Renvela 800 mg PO TID Anemia of CKD, hemoglobin stable in the 9 range - Weekly CBC, will check in AM on 09/06 Evette intertrigo - Nystatin powder TID to affected areas until resolved (09/09) Secondary Diagnoses: Anxiety - Lorazepam 0.5 mg PO BID PRN (09/08) DM2 - Continue to hold Glipizide - Novolog medium dose SSI Essential Tremor - Propranolol 20 mg PO BID Depression with anxiety - Duloxetine 60 mg PO daily - Buspirone 10 mg PO TID Peripheral Edema - Furosemide 40 mg PO daily HLD - Atorvastatin 10 mg PO qhs Chronic Pain with component of neuropathic pain - Gabapentin 200 mg PO BID - Oxycodone 5 mg PO TID scheduled and 5 mg PO BID PRN changed to oxycodone 5 mg q 4 hours scheduled on 09/07 Nicotine dependence - Nicotine TD, 21 mg daily Constipation - Senna-Plus, 2 tabs PO BID PRN Diet: Diabetic DVT prophylaxis: Ambulatory, AMANDA stockings CODE STATUS: Full Code
[2021-09-10] MEDS: LORazepam 0.5 MG Tab PO PRN (20:17)
[2021-09-10] MEDS: atorvaSTATin 10 MG Tab PO SCH (20:17)
[2021-09-10] MEDS: Acetaminophen 325 MG Tab PO PRN (20:18)
[2021-09-11] MEDS: oxyCODONE 5 MG Tab PO SCH ×6 (01:42→20:09)
[2021-09-11] MEDS: Pantoprazole 40 MG Tab.CR PO SCH ×2 (05:41→06:30)
[2021-09-11] MEDS: Nicotine 21 MG/24 Hr Patch TRDERM SCH (08:17)
[2021-09-11] MEDS: Potassium Chloride 20 MEQ Tab.ER PO SCH (08:18)
[2021-09-11] MEDS: busPIRone 10 MG Tab PO SCH ×3 (08:18→20:10)
[2021-09-11] MEDS: Gabapentin 100 MG Cap PO SCH ×2 (08:18→20:09)
[2021-09-11] MEDS: Furosemide 40 MG Tab PO SCH (08:21)
[2021-09-11] MEDS: DULoxetine 30 MG Cap PO SCH (08:21)
[2021-09-11] MEDS: Nystatin Topical Powder 15 GM Bottle TOP SCH ×3 (08:23→20:10)
[2021-09-11] MEDS: Calcitriol 0.25 MCG Cap PO SCH (08:23)
[2021-09-11] MEDS: Propranolol 20 MG Tab PO SCH ×2 (08:25→20:09)
[2021-09-11] MEDS: SEVELAMER CARBONATE 800 MG PO SCH ×3 (08:25→18:46)
[2021-09-11] MEDS: Insulin Aspart 100 Units/ML 3 ML Pen SUBCUT SCH ×4 (08:25→22:14)
[2021-09-11] MEDS: Acetaminophen 325 MG Tab PO PRN ×2 (15:42→23:52)
[2021-09-11] MEDS: LORazepam 0.5 MG Tab PO PRN (20:10)
[2021-09-11] MEDS: atorvaSTATin 10 MG Tab PO SCH (20:10)
[2021-09-12] MEDS: oxyCODONE 5 MG Tab PO SCH ×3 (00:02→09:36)
[2021-09-12] MEDS: Pantoprazole 40 MG Tab.CR PO SCH ×2 (05:54→06:35)
[2021-09-12 07:40] LABS: ANION GAP 12.1 mmol/L (5-15)
[2021-09-12 08:34] VITALS: BP 113/39; PULSE 67
[2021-09-12] MEDS: Propranolol 20 MG Tab PO SCH (09:35)
[2021-09-12] MEDS: Gabapentin 100 MG Cap PO SCH (09:35)
[2021-09-12] MEDS: Furosemide 40 MG Tab PO SCH (09:35)
[2021-09-12] MEDS: DULoxetine 30 MG Cap PO SCH (09:35)
[2021-09-12] MEDS: busPIRone 10 MG Tab PO SCH (09:35)
[2021-09-12] MEDS: Calcitriol 0.25 MCG Cap PO SCH (09:35)
[2021-09-12] MEDS: Potassium Chloride 20 MEQ Tab.ER PO SCH (09:35)
[2021-09-12] MEDS: Nicotine 21 MG/24 Hr Patch TRDERM SCH (09:36)
[2021-09-12] MEDS: SEVELAMER CARBONATE 800 MG PO SCH ×2 (09:37→12:12)
[2021-09-12] MEDS: Nystatin Topical Powder 15 GM Bottle TOP SCH (09:40)
[2021-09-12] MEDS: Insulin Aspart 100 Units/ML 3 ML Pen SUBCUT SCH ×2 (09:41→12:12)
--- NOTE | 2021-09-12 11:05 | PCM.DCSUM1 ---
Discharge Summary - Hospital Course Free Text/Narrative:: Admission Diagnoses: Weakness/deconditioning - Improved, safe to discharge to home KAMALA, felt to be ATN, improving renal indices - Stable, follow-up in 1 week as an outpatient for BMP and clinic appointment with Dr. 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 - Calcitriol 0.25 mcg PO daily (NEW) - Renvela 800 mg PO TID (NEW) Anemia of CKD, hemoglobin stable in the 9 range Evette intertrigo - Nystatin powder TID to affected areas until resolved (09/09) Secondary Diagnoses: Anxiety - Lorazepam 0.5 mg PO qhs PRN (NEW) this was sent through to the pharmacy through her outpatient chart Hypokalemia - Potassium Chloride 60 mEq PO daily (NEW) DM2 - Continue to hold glipizide - Has had minimal SSI requirements - A1C in 3 months to be coordinated through the clinic Essential Tremor - Propranolol 20 mg PO BID Depression with anxiety - Duloxetine 60 mg PO daily - Buspirone 10 mg PO TID Peripheral Edema - Furosemide 40 mg PO daily HLD - Atorvastatin 10 mg PO qhs Chronic Pain with component of neuropathic pain - Gabapentin 200 mg PO BID (DOSE ADUSTMENT) This was sent through to the pharmacy through her clinic chart - Oxycodone 5 mg PO TID scheduled and 5 mg PO BID PRN changed to oxycodone 5 mg q 4 hours scheduled on 09/07, this was sent through to her pharmacy through the clinic chart Nicotine dependence - Nicotine TD, 21 mg daily (can purchase OTC) Constipation - Senna-Plus, 2 tabs PO BID PRN Diet: Diabetic CODE STATUS: Full Code NEW MEDICATIONS AT DISCHARGE: - Calcitriol 0.25 mcg PO daily (NEW) - Renvela 800 mg PO TID (NEW) - Gabapentin 200 mg PO BID (NEW DOSE) - Oxycodone 5 mg PO q 4 hours scheduled (NEW MED, REPLACES MORPHINE SULFATE) - Potassium Chloride 60 mEq PO daily 09/12: Karoline is seen today for discharge. She is ready to go home. Renal function is stable with a creatinine of 3.1 today and a BUN of 31. She has no concerns. She states she feels much better. She will be discharged home with the following med changes: Gabapentin 200 mg PO BID (NEW DOSE) she will bring her old prescription to the pharmacy for disposal Oxycodone 5 mg PO q 4 hours scheduled (NEW MED), discontinued morphine sulfate, she will bring these in for disposal 09/10: Karoline is seen today on [facility] rounds. She states she is feeling so much better. She is able to be off O2 while walking and sitting in her room and is only using it when she sleeps. She feels she may even be strong enough to walk without her walker. Her renal indices continue to improve. Her potassium has normalized. She states her pain is adequately controlled on oxycodone 5 mq PO q 4 hours. She states she mentally feels more clear and does not desire to go back on her morphine sulfate IR. Her gabapentin has been renally dosed at 200 mg PO BID and she feels that is adequate control. She reports having a tight calf when walking since she has been in [place] and she is going to talk to PT about that today. 09/09: Notified by nursing staff she has reddened areas under her abdominal folds consistent with evette. Will start Nystatin powder TID to affected areas until resolved. 09/08: Started lorazepam 0.5 mg PO BID PRN for anxiety/agitation 09/07: Karoline was previously on morphine sulfate IR 15 mg PO q 4 hours scheduled as an outpatient. This was discontinued in [place] and she was placed on oxycodone 5 mg TID scheduled and BID PRN. She states that she is miserable waiting that extra hour and would like to go back to q 4 hours scheduled. She is fine staying on the oxycodone and so will d/c BID PRN and schedule 5 mg PO q 4 hours. She also remains hypokalemia and so will increase potassium supplementation from 20 mEq PO daily to 60 mEq PO daily. 09/05: Karoline is admitted to [facility] for strengthening after a a hospital stay for KAMALA with metabolic encephalopathy. She was hospitalized at [facility] from 08/29 - 08/30 with KAMALA, BUN in the 70's and creatinine at 4.9 with no hx of renal insufficiency and hypoglycemia. She had only been on glipizide 5 mg PO BID. She received a total of 3L of IVF's with minimal improvement in renal indices and it was felt she needed higher level of care in the event of need for TRIPOLER. She was hospitalized at [place] in [place] from 08/30 - 09/05 and had slow improvement in her renal function being diagnosed with KAMALA, probably ATN from prolonged prerenal state. Renal U/S consistent with chronic medical renal disease. Her encephalopathy was felt to be due to her KAMALA in combination with high dose gabapentin and morphine sulfate in the setting of renal insufficiency. Her gabapentin has been reduced and her morphine sulfate discontinued and now is only on oxycodone at a relatively low dose. She is very happy to be back in [place] and alive. She states she really feels pretty good but is weak. She is admitted for PT/OT for strengthening and following of her labs. Modified [place] Scale: No Signif.Disability Despite Sympt.Able to Carry Out Usual Act./Duties Modified [place] Scale Score: 1 - Discharge Data Discharge Date: 09/12/21 Discharge Disposition: Home, Self-Care 01 Condition: Good - Referral to Home Health Primary Care Physician: Jacinda Rossi MD - Patient Summary/Data Consults: Consultations 09/05/21 13:14 OT Evaluation and Treatment [CONS] Routine PT Evaluation and Treatment [CONS] Routine Recommended Follow-up Testing/Procedures: Follow-up with Dr. Snider in 1 week at the clinic with BMP prior to appointment. - Patient Instructions Diet: Diabetic Diet - Discharge Plan *PRESCRIPTION DRUG MONITORING PROGRAM REVIEWED*: No *COPY OF PRESCRIPTION DRUG MONITORING REPORT IN PATIENT MANDY: No Prescriptions/Med Rec: calcitrioL [Calcitriol] 0.25 mcg PO DAILY #30 Potassium Chloride [Klor-Con M20] 60 meq PO WITHBREAKFAST #90 tab.er Sevelamer Carbonate [Renvela] 800 mg PO TIDMEALS #90 Home Medications: Home Meds atorvaSTATin [Lipitor] 10 mg PO BEDTIME 01/07/17 [History] Propranolol HCl 20 mg PO BID 05/02/20 [History] Acetaminophen 650 mg PO Q4H PRN 09/05/21 [History] DULoxetine [Cymbalta] 60 mg PO DAILY 09/05/21 [History] Furosemide [Lasix] 40 mg PO DAILY 09/05/21 [History] Gabapentin [Neurontin] 200 mg PO BID 09/05/21 [History] Nicotine Polacrilex [Nicotine Lozenge] 2 mg BC Q1H PRN 09/05/21 [History] Nicotine [Nicotine Patch] 21 mg TD DAILY 09/05/21 [History] Nitroglycerin 0.4 mg SL ASDIRECTED PRN 09/05/21 [History] Sennosides/Docusate Sodium [Senna-Docusate Sodium Tablet] 2 tab PO BID PRN 09/05/21 [History] busPIRone [Buspar] 10 mg PO TID 09/05/21 [History] LORazepam [Ativan] 0.5 mg PO BID PRN tablet 09/12/21 [Rx] Pantoprazole [ProTONIX] 40 mg PO ACBREAKFAST tab.cr 09/12/21 [Rx] Potassium Chloride [Klor-Con M20] 60 meq PO WITHBREAKFAST #90 tab.er 09/12/21 [Rx] Sevelamer Carbonate [Renvela] 800 mg PO TIDMEALS #90 09/12/21 [Rx] calcitrioL [Calcitriol] 0.25 mcg PO DAILY #30 09/12/21 [Rx] oxyCODONE 5 mg PO Q4H tablet 09/12/21 [Rx] - Discharge Summary/Plan Comment DC Time >30 min.: Yes Total # of Minutes for Discharge Time: 37 - General Info Date of Service: 09/12/21 Admission Dx/Problem (Free Text: Admission Diagnosis/Problem Admission Diagnosis/Problem Weakness - Patient Data Vitals - Most Recent: Last Vital Signs Temp 97.1 F 09/12/21 08:33 Pulse 67 09/12/21 09:35 Resp 16 09/12/21 08:33 BP 113/39 L 09/12/21 09:35 Pulse Ox 95 09/12/21 08:33 Weight - Most Recent: 202 lb 1 oz I&O - Last 24 hours: Intake & Output 09/11/21 09/12/21 09/12/21 22:59 06:59 14:59 Intake Total 550 200 Output Total 1300 1300 Balance -750 -1100 Lab Results - Last 24 hrs: Laboratory Results - last 24 hr 09/11/21 09/11/21 09/11/21 Range/Units 11:44 17:26 20:12 Sodium (136-145) mmol/L Potassium (3.5-5.1) mmol/L Chloride (98-107) mmol/L Carbon Dioxide (21.0-32.0) mmol/L Anion Gap (5-15) mmol/L BUN (7-18) mg/dL Creatinine (0.51-1.17) mg/dL Est Cr Clr Drug Dosing mL/min Estimated GFR (MDRD) mL/min Glucose (70-140) mg/dL POC Glucose 127 125 175 H (70-140) mg/dL Calcium (8.7-10.3) mg/dL 09/12/21 09/12/21 Range/Units 07:00 08:07 Sodium 139 (136-145) mmol/L Potassium 4.4 (3.5-5.1) mmol/L Chloride 100 (98-107) mmol/L Carbon Dioxide 31.3 (21.0-32.0) mmol/L Anion Gap 12.1 (5-15) mmol/L BUN 34 H (7-18) mg/dL Creatinine 3.15 H (0.51-1.17) mg/dL Est Cr Clr Drug Dosing 15.57 mL/min Estimated GFR (MDRD) 14 mL/min Glucose 144 H (70-140) mg/dL POC Glucose 146 H (70-140) mg/dL Calcium 8.8 (8.7-10.3) mg/dL Med Orders - Current: Current Medications Acetaminophen (Acetaminophen 325 Mg Tab) 650 mg PO Q4H PRN PRN Reason: Pain (mild 1-3) Last Admin: 09/11/21 23:52 Dose: 650 mg Documented by: Al Hydroxide/Mg Hydroxide (Aluminum Hydroxide/Magnesium Hydroxide/Simethicone Susp 30 Ml Cup) 30 ml PO Q4H PRN PRN Reason: Indigestion Atorvastatin Calcium (Atorvastatin 10 Mg Tab) 10 mg PO BEDTIME [facility] Last Admin: 09/11/21 20:10 Dose: 10 mg Documented by: Buspirone HCl (Buspirone 10 Mg Tab) 10 mg PO TID [facility] Last Admin: 09/12/21 09:35 Dose: 10 mg Documented by: Calcitriol (Calcitriol 0.25 Mcg Cap) 0.25 mcg PO DAILY [facility] Last Admin: 09/12/21 09:35 Dose: 0.25 mcg Documented by: Dextrose/Water (50% Dextrose In Water 50 Ml Syringe) 50 ml IVPUSH ASDIRECTED PRN PRN Reason: Hypoglycemia Duloxetine HCl (Duloxetine 30 Mg Cap) 60 mg PO DAILY [facility] Last Admin: 09/12/21 09:35 Dose: 60 mg Documented by: Furosemide (Furosemide 40 Mg Tab) 40 mg PO DAILY [facility] Last Admin: 09/12/21 09:35 Dose: 40 mg Documented by: Gabapentin (Gabapentin 100 Mg Cap) 200 mg PO BID [facility] Last Admin: 09/12/21 09:35 Dose: 200 mg Documented by: Glucagon (Glucagon,Human Recombinant 1 Mg Vial) 1 mg IM ASDIRECTED PRN PRN Reason: Hypoglycemia Insulin Aspart (Insulin Aspart 100 Units/Ml 3 Ml Pen) 0 unit SUBCUT WITHMEALSANDBED [facility]; Protocol Last Admin: 09/12/21 09:41 Dose: Not Given Documented by: Lorazepam (Lorazepam 0.5 Mg Tab) 0.5 mg PO BID PRN PRN Reason: Agitation Last Admin: 09/11/21 20:10 Dose: 0.5 mg Documented by: Nicotine (Nicotine 21 Mg/24 Hr Patch) 21 mg TRDERM DAILY [facility] Last Admin: 09/12/21 09:36 Dose: 21 mg Documented by: Nitroglycerin (Nitroglycerin 0.4 Mg Tab.Sl) 0.4 mg SL ASDIRECTED PRN PRN Reason: Chest Pain Nystatin (Nystatin Topical Powder 15 Gm Bottle) 0 gm TOP TID [facility] Last Admin: 09/12/21 09:40 Dose: 1 applic Documented by: Ondansetron HCl (Ondansetron 4 Mg Tab.Dis) 4 mg PO Q6H PRN PRN Reason: Nausea/Vomiting Last Admin: 09/05/21 20:14 Dose: 4 mg Documented by: Oxycodone HCl (Oxycodone 5 Mg Tab) 5 mg PO Q4H [facility] Last Admin: 09/12/21 09:36 Dose: 5 mg Documented by: Pantoprazole Sodium (Pantoprazole 40 Mg Tab.Cr) 40 mg PO ACBREAKFAST [facility] Last Admin: 09/12/21 06:35 Dose: Not Given Documented by: Ptom Nicotine 2 Mg (Lozenge) 1 each PO Q1H PRN PRN Reason: Withdrawal Symptoms Ptom- Sevelamer Carbonate 800 Mg Tablet 1 each PO TIDMEALS [facility] Last Admin: 09/12/21 09:37 Dose: 1 each Documented by: Potassium Chloride (Potassium Chloride 20 Meq Tab.Er) 60 meq PO WITHBREAKFAST [facility] Last Admin: 09/12/21 09:35 Dose: 60 meq Documented by: Propranolol HCl (Propranolol 20 Mg Tab) 20 mg PO BID [facility] Last Admin: 09/12/21 09:35 Dose: 20 mg Documented by: Senna/Docusate Sodium (Docusate Sodium/Sennosides 50-8.6 Mg Tab) 2 tab PO BID PRN PRN Reason: Constipation Discontinued Medications Oxycodone HCl (Oxycodone 5 Mg Tab) 5 mg PO BID PRN PRN Reason: Pain (moderate 4-6) Last Admin: 09/06/21 22:42 Dose: 5 mg Documented by: Oxycodone HCl (Oxycodone 5 Mg Tab) 5 mg PO TID [facility] Last Admin: 09/07/21 08:39 Dose: 5 mg Documented by: Potassium Bicarbonate (Potassium Bicarbonate 25 Meq Tab.Eff) 25 meq PO ONETIME ONE Stop: 09/06/21 09:01 Last Admin: 09/06/21 09:04 Dose: 25 meq Documented by: Potassium Bicarbonate (Potassium Bicarbonate 25 Meq Tab.Eff) 25 meq PO ONETIME ONE Stop: 09/06/21 17:01 Last Admin: 09/06/21 19:10 Dose: 25 meq Documented by: Potassium Bicarbonate (Potassium Bicarbonate 25 Meq Tab.Eff) Confirm Admini stered Dose 25 meq .ROUTE .STK-MED ONE Stop: 09/06/21 19:06 Last Admin: 09/06/21 19:10 Dose: Not Given Documented by: Potassium Chloride (Potassium Chloride 20 Meq Tab.Er) 20 meq PO WITHBREAKFAST [facility] Last Admin: 09/07/21 08:34 Dose: 20 meq Documented by: Potassium Chloride (Potassium Chloride 20 Meq Tab.Er) 40 meq PO ONETIME ONE Stop: 09/07/21 09:31 Last Admin: 09/07/21 12:33 Dose: 40 meq Documented by: Potassium Chloride (Potassium Chloride 20 Meq Tab.Er) 80 meq PO ONETIME ONE Stop: 09/08/21 14:01 Last Admin: 09/08/21 13:35 Dose: 80 meq Documented by: - Exam General: Reports: Alert, Oriented, Cooperative, No Acute Distress Lungs: Reports: Normal Respiratory Effort Cardiovascular: Reports: Regular Rate, Regular Rhythm, Murmurs
== END 2021-09-12 12:30 | disposition home or self-care (01) | DRG 947 ==
LOC: KA.MS 12:59
PROVIDERS: ADMIT Internal Medicine; ATTEND Internal Medicine
DX: R53.1 Weakness (principal); N17.0 Acute kidney failure with tubular necrosis; E83.39 Other disorders of phosphorus metabolism; D63.1 Anemia in chronic kidney disease; N18.9 Chronic kidney disease, unspecified; B37.2 Candidiasis of skin and nail; F41.9 Anxiety disorder, unspecified; E87.6 Hypokalemia; E11.22 Type 2 diabetes mellitus with diabetic chronic kidney disease; R25.1 Tremor, unspecified; F32.A Depression, unspecified; E78.5 Hyperlipidemia, unspecified; G89.29 Other chronic pain; K59.00 Constipation, unspecified; F17.210 Nicotine dependence, cigarettes, uncomplicated; H54.7 Unspecified visual loss; E78.00 Pure hypercholesterolemia, unspecified; G47.30 Sleep apnea, unspecified; M19.90 Unspecified osteoarthritis, unspecified site; M81.0 Age-related osteoporosis without current pathological fracture; G43.909 Migraine, unspecified, not intractable, without status migrainosus; E11.42 Type 2 diabetes mellitus with diabetic polyneuropathy; Z79.899 Other long term (current) drug therapy; Z88.5 Allergy status to narcotic agent; Z79.84 Long term (current) use of oral hypoglycemic drugs; Z90.710 Acquired absence of both cervix and uterus
CPT/HCPCS: 36415; 80048; 82947; 85025; 97110-GP; 97161-GP; A9270-GY; J1815-GY

== ENCOUNTER 2021-10-10 13:32 | Emergency (ER) | payer MEDICARE, BC ==
[2021-10-10] MEDS: Ondansetron 4 MG/2 ML SDV IVPUSH ONE (14:07)
[2021-10-10] MEDS: Sodium Chloride 0.9% 1,000 ML IV ONE (14:07)
[2021-10-10] MEDS: Ondansetron 4 MG/2 ML SDV ONE (14:08)
[2021-10-10] MEDS: Sodium Chloride 0.9% 1,000 ML ONE (14:08)
[2021-10-10 14:24] LABS: ANION GAP 16.2 mmol/L (5-15); CHLORIDE,CL 102 mmol/L (98-107); SODIUM,NA 137 mmol/L (136-145)
[2021-10-10 15:02] LABS: CORONAVIRUS COVID-19 NAA NEGATIVE (NEGATIVE)
[2021-10-10 15:12] VITALS: BP 135/63; PULSE 71
== END 2021-10-10 15:25 | disposition home or self-care (01) ==
LOC: KA.ED 13:32
DX: R11.2 Nausea with vomiting, unspecified (principal); E86.0 Dehydration; E11.42 Type 2 diabetes mellitus with diabetic polyneuropathy; E11.22 Type 2 diabetes mellitus with diabetic chronic kidney disease; N18.9 Chronic kidney disease, unspecified; M19.90 Unspecified osteoarthritis, unspecified site; Z88.5 Allergy status to narcotic agent; Z88.7 Allergy status to serum and vaccine; Z88.8 Allergy status to other drugs, medicaments and biological substances; Z79.899 Other long term (current) drug therapy; Z20.822 Contact with and (suspected) exposure to COVID-19
CPT/HCPCS: 0240U; 36415; 80053; 81001; 82947; 85025; 96374; 99284-25; J2405; J7030

== ENCOUNTER 2022-04-01 14:53 | Emergency (ER) | payer MEDICARE, BC ==
[2022-04-01 15:19] VITALS: BP 119/41; PULSE 59
[2022-04-01 15:39] LABS: ANION GAP 13.1 mmol/L (5-15)
[2022-04-01 16:10] LABS: CORONAVIRUS COVID-19 NAA NEGATIVE (NEGATIVE)
== END 2022-04-01 16:40 | disposition home or self-care (01) ==
LOC: KA.ED 14:53
DX: R50.9 Fever, unspecified (principal); E11.9 Type 2 diabetes mellitus without complications; Z88.8 Allergy status to other drugs, medicaments and biological substances; Z88.7 Allergy status to serum and vaccine; Z79.899 Other long term (current) drug therapy; Z20.822 Contact with and (suspected) exposure to COVID-19
CPT/HCPCS: 0240U; 36415; 80053; 85025; 99284

== ENCOUNTER 2022-07-30 12:20 | Observation (INO) | payer MEDICARE, BC ==
[2022-07-30] MEDS ORDERED: Sodium Chloride 0.9% 1,000 ML IV ONE (13:11)
[2022-07-30 13:23] LABS: ANION GAP 13.1 mmol/L (5-15); CHLORIDE,CL 104 mmol/L (98-107); ESTIMATED GFR 40 mL/min (>=60); SODIUM,NA 141 mmol/L (136-145)
[2022-07-30] MEDS ORDERED: Ondansetron 4 MG/2 ML SDV IVPUSH ONE (13:55)
[2022-07-30] MEDS ORDERED: Acetaminophen/HYDROcodone 325-10 MG Tab PO ONE (13:55)
[2022-07-30] MEDS ORDERED: Ondansetron 4 MG Tab.DIS PO PRN (17:44)
[2022-07-30] MEDS ORDERED: Acetaminophen 325 MG Tab PO PRN (17:50)
[2022-07-30] MEDS ORDERED: Albuterol 0.083% 2.5 MG/3 ML Neb Soln NEB ONE (17:58)
[2022-07-30] MEDS ORDERED: Sodium Chloride 0.9% 1,000 ML IV SCH (18:00)
[2022-07-30] MEDS: Budesonide 0.5 MG/2 ML Neb Susp NEB SCH ×2 (19:14→20:06)
[2022-07-30] MEDS: Acetaminophen/HYDROcodone 325-10 MG Tab PO PRN (20:03)
[2022-07-30] MEDS: Gabapentin 300 MG Cap PO SCH (20:04)
[2022-07-30] MEDS: Propranolol 20 MG Tab PO SCH (20:06)
[2022-07-30] MEDS ORDERED: Melatonin 3 MG Tab PO PRN (23:27)
[2022-07-31] MEDS: Acetaminophen/HYDROcodone 325-10 MG Tab PO PRN ×3 (00:21→12:00)
[2022-07-31 07:30] LABS: ANION GAP 10.6 mmol/L (5-15)
[2022-07-31] MEDS ORDERED: Pantoprazole 40 MG Tab.CR PO SCH (07:30)
[2022-07-31] MEDS: Propranolol 20 MG Tab PO SCH (08:57)
[2022-07-31] MEDS: Budesonide 0.5 MG/2 ML Neb Susp NEB SCH (08:57)
[2022-07-31] MEDS: Gabapentin 300 MG Cap PO SCH (08:59)
[2022-07-31] MEDS ORDERED: Non-Formulary Medication 1 Each (Sevelamer Carbonate [Renvela] 800 MG Tablet) PO SCH (09:00)
[2022-07-31 09:01] VITALS: BP 123/43
[2022-07-31 11:09] VITALS: PULSE 63
== END 2022-07-31 13:35 | disposition home or self-care (01) ==
LOC: KA.MS 12:20 → KA.IVTHER 12:20 → KA.MS 15:00
PROVIDERS: ADMIT Nurse Practitioner Family; ATTEND Nurse Practitioner Family
DX: J06.9 Acute upper respiratory infection, unspecified (principal); N19 Unspecified kidney failure; Z79.899 Other long term (current) drug therapy; Z88.8 Allergy status to other drugs, medicaments and biological substances; Z88.7 Allergy status to serum and vaccine
CPT/HCPCS: 36415; 71046; 80048; 80053; 81001; 84100; 84145; 85025; 87804; 87807; A9270; G0378; J2405; J7030; J7613-GY

== ENCOUNTER 2023-03-24 12:36 | Emergency (ER) | payer MEDICARE, BC ==
[2023-03-24] MEDS ORDERED: diphenhydrAMINE 50 MG/ML SDV IVPUSH ONE (12:48)
[2023-03-24] MEDS ORDERED: Sodium Chloride 0.9% 1,000 ML IV ONE (12:48)
[2023-03-24] MEDS ORDERED: Sodium Chloride 0.9% 10 ML Syringe FLUSH PRN (12:48)
[2023-03-24] MEDS ORDERED: Ondansetron 4 MG/2 ML SDV IVPUSH ONE (12:54)
[2023-03-24 12:55] LABS: BASOPHILS ABSOLUTE AUTO 0.04 10^3/uL (0.00-0.10); BASOPHILS PERCENT AUTO 0.4 % (0.0-1.0); EOSINOPHILS ABSOLUTE AUTO 0.16 10^3/uL (0.10-0.30); EOSINOPHILS PERCENT AUTO 1.6 % (1.0-3.0); HEMATOCRIT 46.5 % (37.0-47.0); HEMOGLOBIN 15.4 g/dL (12.0-16.0); IMMATURE GRAN ABSOLUTE AUTO 0.01 10^3/uL (0.00-0.50); IMMATURE GRAN PERCENT AUTO 0.1 % (0.0-5.0); LYMPHOCYTES ABSOLUTE AUTO 2.41 10^3/uL (1.00-4.00); LYMPHOCYTES PERCENT AUTO 23.9 % (20.0-40.0); MEAN CORPUSCULAR HEMOGLOBIN 31.4 pg (27.0-31.0); MEAN CORPUSCULAR HGB CONC 33.1 g/dL (32.0-36.0); MEAN CORPUSCULAR VOLUME 94.9 fL (82.0-92.0); MEAN PLATELET VOLUME 9.4 fL (7.4-10.4); MONOCYTES ABSOLUTE AUTO 0.65 10^3/uL (0.10-0.80); MONOCYTES PERCENT AUTO 6.4 % (2.0-8.0); NEUTROPHILS ABSOLUTE AUTO 6.81 10^3/uL (2.50-7.00); NEUTROPHILS PERCENT AUTO 67.6 % (50.0-70.0); PLATELET COUNT,PLT 272 10^3/uL (150-400); RED CELL DISTRIBUTION WIDTH 12.1 % (11.5-14.5); WHITE BLOOD CELL COUNT,WBC 10.08 10^3/uL (5.00-10.00)
[2023-03-24 13:10] LABS: ALBUMIN 3.77 g/dL (3.40-5.00); ANION GAP 12.9 mmol/L (5-15); BILIRUBIN TOTAL 0.6 mg/dL (0.2-1.0); CALCIUM 9.1 mg/dL (8.7-10.3); CARBON DIOXIDE,CO2 31.7 mmol/L (21.0-32.0); CREATININE 1.57 mg/dL (0.51-1.17); EST CRCL DRUG DOSING (CG) 30.75 mL/min; POTASSIUM,K 4.6 mmol/L (3.5-5.1); PROTEIN TOTAL,TP 7.8 g/dL (6.4-8.2)
[2023-03-24] MEDS ORDERED: Loperamide 2 MG Cap PO ONE (13:49)
[2023-03-24] MEDS: Loperamide 2 MG Cap ONE ×2 (13:49→13:51)
[2023-03-24 14:25] VITALS: BP 127/45; PULSE 55
== END 2023-03-24 14:28 | disposition home or self-care (01) ==
LOC: KA.ED 12:36
DX: G43.909 Migraine, unspecified, not intractable, without status migrainosus (principal); E11.22 Type 2 diabetes mellitus with diabetic chronic kidney disease; N18.9 Chronic kidney disease, unspecified; N17.9 Acute kidney failure, unspecified; E11.40 Type 2 diabetes mellitus with diabetic neuropathy, unspecified; F17.210 Nicotine dependence, cigarettes, uncomplicated; E78.00 Pure hypercholesterolemia, unspecified; Z88.7 Allergy status to serum and vaccine; Z79.899 Other long term (current) drug therapy; Z88.8 Allergy status to other drugs, medicaments and biological substances
CPT/HCPCS: 80053; 85025; 96361; 96374; 96375; 99283-25; A9270-GY; J1200; J2405; J7030

== ENCOUNTER 2023-06-30 10:53 | Emergency (ER) | payer MEDICARE, BC ==
[2023-06-30] MEDS ORDERED: Ondansetron 4 MG/2 ML SDV IVPUSH ONE (11:36)
[2023-06-30] MEDS ORDERED: Sodium Chloride 0.9% 1,000 ML IV ONE (11:37)
[2023-06-30 11:47] LABS: BASOPHILS ABSOLUTE AUTO 0.04 10^3/uL (0.00-0.10); BASOPHILS PERCENT AUTO 0.6 % (0.0-1.0); EOSINOPHILS ABSOLUTE AUTO 0.21 10^3/uL (0.10-0.30); HEMATOCRIT 45.4 % (37.0-47.0); HEMOGLOBIN 14.9 g/dL (12.0-16.0); IMMATURE GRAN ABSOLUTE AUTO 0.02 10^3/uL (0.00-0.50); IMMATURE GRAN PERCENT AUTO 0.3 % (0.0-5.0); LYMPHOCYTES ABSOLUTE AUTO 2.35 10^3/uL (1.00-4.00); LYMPHOCYTES PERCENT AUTO 33.6 % (20.0-40.0); MEAN CORPUSCULAR HEMOGLOBIN 31.8 pg (27.0-31.0); MEAN CORPUSCULAR HGB CONC 32.8 g/dL (32.0-36.0); MEAN PLATELET VOLUME 9.2 fL (7.4-10.4); MONOCYTES ABSOLUTE AUTO 0.46 10^3/uL (0.10-0.80); MONOCYTES PERCENT AUTO 6.6 % (2.0-8.0); NEUTROPHILS ABSOLUTE AUTO 3.92 10^3/uL (2.50-7.00); NEUTROPHILS PERCENT AUTO 55.9 % (50.0-70.0); PLATELET COUNT,PLT 285 10^3/uL (150-400); RED BLOOD CELL COUNT 4.68 10^6/uL (3.80-5.50); RED CELL DISTRIBUTION WIDTH 12.4 % (11.5-14.5)
[2023-06-30 12:07] LABS: BLOOD UREA NITROGEN,POC 24 mg/dL (8-26); CHLORIDE,POC 105 mmol/l (98-107); POTASSIUM,POC 4.4 mmol/L (3.5-4.5); SODIUM,POC 139 mmol/L (138-146)
[2023-06-30 12:12] LABS: CREATININE,POC 1.28 mg/dL (0.51-1.19); ESTIMATED GFR, POC 43 mL/min (>=60)
[2023-06-30 12:20] LABS: APPEARANCE,URINE SLIGHTLY CLOUDY (CLEAR); BILIRUBIN,URINE NEGATIVE (NEGATIVE); COLOR,URINE DARK YELLOW (YELLOW); GLUCOSE,URINE 500 mg/dL (NEGATIVE); KETONES,URINE NEGATIVE (NEGATIVE); LEUKOCYTE ESTERASE,URINE TRACE (NEGATIVE); NITRITE,URINE NEGATIVE (NEGATIVE); OCCULT BLOOD,URINE NEGATIVE (NEGATIVE); PH,URINE 5.5 (5.0-9.0); PROTEIN,URINE 30 mg/dL (NEGATIVE); UROBILINOGEN,URINE 0.2 E.U./dL (0.2-1.0)
[2023-06-30 12:29] LABS: EPITHELIAL CELLS,URINE MODERATE /LPF; RBC,URINE 0-5 /HPF (0-5); WBC,URINE 0-5 /HPF (0-5)
[2023-06-30 12:30] LABS: BACTERIA,URINE FEW /HPF (NONE TO FEW); YEAST,URINE OCCASIONAL /HPF (NEGATIVE)
[2023-06-30 12:52] LABS: INFLUENZA A NAA NEGATIVE (NEGATIVE); INFLUENZA B NAA NEGATIVE (NEGATIVE); RESPIRATORY SYNCYTIAL VIR NAA NEGATIVE (NEGATIVE)
[2023-06-30 12:54] LABS: CORONAVIRUS COVID-19 NAA NEGATIVE (NEGATIVE)
[2023-06-30 13:02] VITALS: BP 124/49; PULSE 60
== END 2023-06-30 13:10 | disposition home or self-care (01) ==
LOC: KA.ED 10:53
DX: E86.0 Dehydration (principal); R11.2 Nausea with vomiting, unspecified; Z20.822 Contact with and (suspected) exposure to COVID-19
CPT/HCPCS: 0241U; 80047; 81001; 85025; 96361; 96374; 99284; 99284-25; J2405; J7030

== ENCOUNTER 2023-09-16 11:41 | Emergency (ER) | payer MEDICARE, BC ==
[2023-09-16] MEDS ORDERED: Sodium Chloride 0.9% 10 ML Syringe FLUSH PRN (11:49)
[2023-09-16 11:51] VITALS: BP 131/50; PULSE 64
[2023-09-16 12:21] LABS: BASOPHILS ABSOLUTE AUTO 0.02 10^3/uL (0.00-0.10); BASOPHILS PERCENT AUTO 0.2 % (0.0-1.0); EOSINOPHILS ABSOLUTE AUTO 0.27 10^3/uL (0.10-0.30); EOSINOPHILS PERCENT AUTO 3.2 % (1.0-3.0); HEMOGLOBIN 14.5 g/dL (12.0-16.0); IMMATURE GRAN ABSOLUTE AUTO 0.01 10^3/uL (0.00-0.50); IMMATURE GRAN PERCENT AUTO 0.1 % (0.0-5.0); LYMPHOCYTES ABSOLUTE AUTO 2.53 10^3/uL (1.00-4.00); LYMPHOCYTES PERCENT AUTO 30.2 % (20.0-40.0); MEAN CORPUSCULAR HGB CONC 33.7 g/dL (32.0-36.0); MEAN CORPUSCULAR VOLUME 97.7 fL (82.0-92.0); MEAN PLATELET VOLUME 9.6 fL (7.4-10.4); MONOCYTES ABSOLUTE AUTO 0.48 10^3/uL (0.10-0.80); MONOCYTES PERCENT AUTO 5.7 % (2.0-8.0); NEUTROPHILS ABSOLUTE AUTO 5.08 10^3/uL (2.50-7.00); NEUTROPHILS PERCENT AUTO 60.6 % (50.0-70.0); PLATELET COUNT,PLT 263 10^3/uL (150-400); WHITE BLOOD CELL COUNT,WBC 8.39 10^3/uL (5.00-10.00)
[2023-09-16] MEDS: Sodium Chloride 0.9% 1,000 ML IV ONE (12:22)
[2023-09-16 12:38] LABS: ALANINE AMINOTRANSFERASE,ALT 10 U/L (14-63); ALBUMIN 3.48 g/dL (3.40-5.00); ALKALINE PHOSPHATASE 89 U/L (46-116); ANION GAP 15.2 mmol/L (5-15); BILIRUBIN TOTAL 0.4 mg/dL (0.2-1.0); BLOOD UREA NITROGEN,BUN 16 mg/dL (7-18); CALCIUM 8.8 mg/dL (8.7-10.3); CARBON DIOXIDE,CO2 25.4 mmol/L (21.0-32.0); CHLORIDE,CL 101 mmol/L (98-107); CREATININE 1.38 mg/dL (0.51-1.17); EST CRCL DRUG DOSING (CG) 34.44 mL/min; GLUCOSE RANDOM 208 mg/dL (70-140); LIPASE 25 U/L (16-77); POTASSIUM,K 3.6 mmol/L (3.5-5.1); PROTEIN TOTAL,TP 7.2 g/dL (6.4-8.2); SODIUM,NA 138 mmol/L (136-145)
[2023-09-16 12:42] LABS: ASPARTATE AMNIOTRANSFERASE,AST < 9 U/L (15-37); ESTIMATED GFR 39 mL/min (>=60)
[2023-09-16 13:18] LABS: APPEARANCE,URINE CLEAR (CLEAR); BILIRUBIN,URINE NEGATIVE (NEGATIVE); COLOR,URINE LIGHT YELLOW (YELLOW); GLUCOSE,URINE 500 mg/dL (NEGATIVE); KETONES,URINE NEGATIVE (NEGATIVE); LEUKOCYTE ESTERASE,URINE TRACE (NEGATIVE); NITRITE,URINE NEGATIVE (NEGATIVE); OCCULT BLOOD,URINE NEGATIVE (NEGATIVE); PROTEIN,URINE NEGATIVE (NEGATIVE); UROBILINOGEN,URINE 0.2 E.U./dL (0.2-1.0)
[2023-09-16 13:19] LABS: BACTERIA,URINE OCCASIONAL /HPF (NONE TO FEW); EPITHELIAL CELLS,URINE FEW /LPF; RBC,URINE 0-5 /HPF (0-5); YEAST,URINE OCCASIONAL /HPF (NEGATIVE)
[2023-09-16 13:46] LABS: INFLUENZA A NAA NEGATIVE (NEGATIVE); INFLUENZA B NAA NEGATIVE (NEGATIVE); RESPIRATORY SYNCYTIAL VIR NAA NEGATIVE (NEGATIVE)
[2023-09-16 13:47] LABS: CORONAVIRUS COVID-19 NAA NEGATIVE (NEGATIVE)
[2023-09-16] MEDS: Loperamide 2 MG Cap PO ONE (14:33)
== END 2023-09-16 14:46 | disposition home or self-care (01) ==
LOC: KA.ED 11:41
DX: R19.7 Diarrhea, unspecified (principal); K52.9 Noninfective gastroenteritis and colitis, unspecified; E86.0 Dehydration; E11.22 Type 2 diabetes mellitus with diabetic chronic kidney disease; N18.32 Chronic kidney disease, stage 3b; F17.200 Nicotine dependence, unspecified, uncomplicated; E78.00 Pure hypercholesterolemia, unspecified; Z79.899 Other long term (current) drug therapy; Z88.8 Allergy status to other drugs, medicaments and biological substances; Z88.7 Allergy status to serum and vaccine
CPT/HCPCS: 0241U; 71045; 80053; 81001; 83605; 83690; 84484; 85025; 87045; 87046; 87086; 87088; 87177; 87206; 87207; 87324; 87449; 93010; 96360; 99284; 99284-25; A9270-GY; J7030

== ENCOUNTER 2023-10-29 12:23 | Emergency (ER) | payer MEDICARE, BC ==
[2023-10-29 12:52] LABS: BASOPHILS ABSOLUTE AUTO 0.03 10^3/uL (0.00-0.10); BASOPHILS PERCENT AUTO 0.5 % (0.0-1.0); EOSINOPHILS ABSOLUTE AUTO 0.18 10^3/uL (0.10-0.30); HEMOGLOBIN 14.9 g/dL (12.0-16.0); IMMATURE GRAN ABSOLUTE AUTO 0.01 10^3/uL (0.00-0.50); IMMATURE GRAN PERCENT AUTO 0.2 % (0.0-5.0); LYMPHOCYTES ABSOLUTE AUTO 1.96 10^3/uL (1.00-4.00); LYMPHOCYTES PERCENT AUTO 32.9 % (20.0-40.0); MEAN CORPUSCULAR HEMOGLOBIN 32.3 pg (27.0-31.0); MEAN CORPUSCULAR HGB CONC 33.1 g/dL (32.0-36.0); MEAN CORPUSCULAR VOLUME 97.6 fL (82.0-92.0); MEAN PLATELET VOLUME 9.2 fL (7.4-10.4); MONOCYTES ABSOLUTE AUTO 0.38 10^3/uL (0.10-0.80); MONOCYTES PERCENT AUTO 6.4 % (2.0-8.0); PLATELET COUNT,PLT 234 10^3/uL (150-400); RED BLOOD CELL COUNT 4.61 10^6/uL (3.80-5.50); WHITE BLOOD CELL COUNT,WBC 5.96 10^3/uL (5.00-10.00)
[2023-10-29] MEDS: Sodium Chloride 0.9% 1,000 ML IV ONE (12:54)
[2023-10-29 13:07] LABS: ALBUMIN 3.44 g/dL (3.40-5.00); ANION GAP 12.7 mmol/L (5-15); BILIRUBIN TOTAL 0.5 mg/dL (0.2-1.0); CALCIUM 9.1 mg/dL (8.7-10.3); CARBON DIOXIDE,CO2 27.9 mmol/L (21.0-32.0); CREATININE 1.18 mg/dL (0.51-1.17); EST CRCL DRUG DOSING (CG) 40.28 mL/min; POTASSIUM,K 4.6 mmol/L (3.5-5.1); PROTEIN TOTAL,TP 6.8 g/dL (6.4-8.2)
[2023-10-29 13:51] VITALS: BP 128/52; PULSE 59
[2023-10-29 13:52] LABS: INFLUENZA A NAA NEGATIVE (NEGATIVE); INFLUENZA B NAA NEGATIVE (NEGATIVE); RESPIRATORY SYNCYTIAL VIR NAA NEGATIVE (NEGATIVE)
[2023-10-29 13:55] LABS: CORONAVIRUS COVID-19 NAA NEGATIVE (NEGATIVE)
[2023-10-29 14:14] LABS: APPEARANCE,URINE CLEAR (CLEAR); BILIRUBIN,URINE NEGATIVE (NEGATIVE); COLOR,URINE YELLOW (YELLOW); GLUCOSE,URINE >=1000 mg/dL (NEGATIVE); KETONES,URINE 15 mg/dL (NEGATIVE); LEUKOCYTE ESTERASE,URINE NEGATIVE (NEGATIVE); NITRITE,URINE NEGATIVE (NEGATIVE); OCCULT BLOOD,URINE TRACE-INTACT (NEGATIVE); PROTEIN,URINE 30 mg/dL (NEGATIVE); UROBILINOGEN,URINE 0.2 E.U./dL (0.2-1.0)
[2023-10-29 14:22] LABS: BACTERIA,URINE RARE /HPF (NONE TO FEW); EPITHELIAL CELLS,URINE RARE /LPF; RBC,URINE 0-5 /HPF (0-5); WBC,URINE 0-5 /HPF (0-5); YEAST,URINE RARE /HPF (NEGATIVE)
== END 2023-10-29 14:40 | disposition home or self-care (01) ==
LOC: KA.ED 12:23
DX: R63.0 Anorexia (principal); E86.0 Dehydration; R53.1 Weakness; E11.9 Type 2 diabetes mellitus without complications; Z88.7 Allergy status to serum and vaccine; Z88.8 Allergy status to other drugs, medicaments and biological substances; Z79.899 Other long term (current) drug therapy; Z90.710 Acquired absence of both cervix and uterus
CPT/HCPCS: 0241U; 71045; 80053; 81001; 85025; 87086; 96360; 99284; J7030